=== PATIENT | male | born 1955 | race Caucasian/White ===

== ENCOUNTER 2020-04-20 09:36 | Inpatient (IN) | payer MEDICARE, OTHER, SELFPAY ==
[2020-04-20] VITALS (15 sets, daily range): BP systolic 105–136; BP diastolic 66–108; PULSE 81–103; RESP 18–30; TEMP 36.6–36.8; O2SAT 95–99; BMI 21.7; BMI 21.4
--- NOTE | 2020-04-20 09:56 | CT_ITS ---
STUDY: CT BRAIN WITHOUT CONTRAST REASON FOR EXAM: Male, 64 years old. LEFT ARM WEAKNESS. RADIATION DOSAGE (If Supplied By Facility): CTDIvol = ( 44.99 ) mGy, DLP = ( 796.11 ) mGycm TECHNIQUE: Transaxial CT imaging of the brain was performed without administration of intravenous contrast material. Individualized dose optimization techniques were used for this CT. COMPARISON: No relevant priors. FINDINGS: Normal soft tissue structures. Normal calvarium. Normal size ventricles and extra-axial spaces for the patient''s age. Normal white matter tracts of the cerebral hemispheres. Normal basal ganglia and thalami. Normal brainstem. Normal cerebellum. There is no intracranial hemorrhage. There are no findings of an acute ischemic infarction. Normal visualized paranasal sinuses. CT/Brain/Head without Contrast IMPRESSION: Normal unenhanced CT scan of the brain. Electronically Signed: Lonny Mohamud, at 10:55 EDT , Service support ,
--- NOTE | 2020-04-20 09:57 | EKG12_ITS ---
Test Reason : REPEAT EKG Blood Pressure : / mmHG Vent. Rate : 090 BPM Atrial Rate : 090 BPM P-R Int : 174 ms QRS Dur : 090 ms QT Int : 370 ms P-R-T Axes : 080 063 069 degrees QTc Int : 452 ms Normal sinus rhythm Low voltage QRS Borderline ECG Confirmed by EMERSON HERNANDEZ, DOMINIK ([id number]), editor book DEONDRE SANTOS ([id number]) on 04/21/2020 1:11:46 PM Referred By: BEST Confirmed By:DOMINIK NORMAN MD
--- NOTE | 2020-04-20 09:58 | RAD_ITS ---
STUDY: X-RAY CHEST REASON FOR EXAM: Male, 64 years old. SHORT OF BREATH, WEAKNESS TECHNIQUE: Single AP portable view of the chest. COMPARISON: None. FINDINGS: EKG electrodes are seen. Hyperinflation. Mild degree of increased markings in the right infrahilar region suggestive of a possible early infiltrate. There is no demonstrated pleural abnormality. Normal size heart. Normal mediastinum and nae. Normal visualized pulmonary arteries. There is atherosclerotic calcification of the aortic arch with tortuosity. There are diffuse degenerative changes of the visualized thoracic spine. Normal visualized ribs, clavicles, and shoulders. There is no demonstrated abnormality of the visualized soft tissue structures of the upper abdomen. RAD/Chest 1 View (Portable) IMPRESSION: Hyperinflation. Findings suggestive of a right infrahilar infiltrate. Electronically Signed: Lonny Mohamud, at 11:09 EDT , Service support ,
[2020-04-20] MEDS: Ipratropium/Albuterol Sulfate 3 ML AMPUL.NEB INHALATION ×3 (10:11→23:03)
[2020-04-20 10:20] LABS: Absolute Lymphocyte Count 1.34 X10^3/uL (0.83-4.51); Absolute Neutrophil Count 6.2 X10^3/uL (2.0-7.7); Basophil# 0.06 X10^3/uL; Basophil% 0.7 % (0-1); Eosinophil# 0.21 X10^3/uL; Eosinophils% 2.5 % (0-5); Hematocrit 46.9 % (40-54); Hemoglobin 15.9 g/dL (13.0-16.5); Lymphocyte # 1.34 X10^3/ul (4.0); Lymphocyte % 15.8 % (19-41); Mean Corp Hgb Conc 33.9 g/dL (32-36); Mean Corpuscular Hgb 32.7 pg (27.0-32.0); Mean Corpuscular Volume 96.5 fL (80-94); Mean Platelet Vol. 10.4 fl (6.2-12.0); Monocyte# 0.65 X10^3/uL; Monocyte% 7.7 % (0-10); NRBC Flagged by Analyzer 0 % (0-5); Neutrophil % 73.1 % (47-70); Platelet Count 264 K/mm3 (150-450); RBC Distribution Width CV 12.2 % (11.6-14.6); RBC Distribution Width SD 43.3 fl (35.1-43.9); Red Blood Count 4.86 M/mm3 (4.6-6.2); White Blood Count 8.5 K/mm3 (4.4-11.0)
--- NOTE | 2020-04-20 10:25 | ED.VIS.GEN ---
History of Present Illness Chief Complaint: General Illness Informant: Patient Onset: Today Context: Gradual Onset Narrative: Patient is a 64-year-old male with history of tobacco use and COPD presenting with multiple complaints. Patient states when he woke up this morning around 4:30 AM he noticed that his left arm felt weaker than normal. He states he does not feel he has much manager community strength is normal. Patient notes he had symptoms like this in the past and he had neck surgery for and he is never had it since. In addition he had some spasms of his left jaw. When he got out of bed around 6 AM to go to the restroom he suddenly felt very weak and short of breath. He also states that his arm weakness felt worse. Patient states that this feels different than his typical COPD exacerbations. He has tightness in his chest but denies any chest pain. He denies any cough or recent sputum production. Denies any fever or chills. He does note that over the past week he has had increased pain in his bilateral shoulders/back. States it feels like a tight muscle across the top of his back. In addition he notes he is had some mild left lower quadrant abdominal pain that he saw his primary care doctor for last week. At that time he thought he might have a small hernia. He states is worse when he tries to sit up positions. Patient denies associated nausea, vomiting or change in bowel habits. He denies any urinary symptoms. He denies any other complaints at this time. Past Medical History - Allergies and Home Meds Allergies/Adverse Reactions: Allergies No Known Allergies Allergy (Verified 04/20/20 09:44) Past Medical History: - - COPD, chronic back pain Surgical History: - - Cervical spine surgery Smoking Status: Current some day smoker - Family History Maternal Family History: Reports: No pertinent history Paternal Family History: Reports: No pertinent history Review of Systems General: Reports: Malaise. Denies: Chills, Fever, Sweats Eyes: Denies: Visual changes - bilaterally, Diplopia ENT: Denies: Rhinorrhea, Sore throat Cardiovascular: Reports: Chest pain - Chest tightness. Denies: Palpitations Respiratory: Reports: Dyspnea. Denies: Cough, Sputum, Dyspnea on exertion Gastrointestinal: Reports: Abdominal pain - Left lower abdomen. Denies: Nausea, Vomiting, Diarrhea, Melena, Hematochezia Genitourinary: Denies: Dysuria, Hematuria, Frequency Musculoskeletal: Reports: Myalgias - Upper back. Denies: Back pain, Extremity Pain Skin: Denies: Rash, Wounds Neurological: Reports: Weakness - Left arm and hand. Denies: Headache, Parasthesia, Numbness Physical Exam Vital Signs/Narrative: Vital Signs Temp Pulse Resp BP Pulse Ox 04/20/20 10:08 98.1 F 87 22 H 121/88 H 96 04/20/20 09:37 98.1 F 97 20 H 136/108 H 97 Inital Vital Signs reviewed: Yes General: Well nourished, Well developed, No Acute Distress Head: Normocephalic, Atraumatic Eyes: Perrl, EOMI ENT: Moist mucous membranes, No rhinorrhea Neck: Supple, Nontender Cardiovascular: Regular rate, Regular rhythm, No murmurs Respiratory: No distress, Chest nontender, Diminished, Decreased Air Movement. Negative for: Wheezing Abdomen: Soft, Nontender, Nondistended, Normal bowel sounds, No masses. Negative for: Guarding, Rebound tenderness Back: Normal Inspection, - - Bilateral trapezius tenderness to palpation. Negative for: CVA tenderness, Spinal tenderness Extremities: Nontender, No edema, - - Decreased manager community strength, decreased strength with the intrinsic muscles of the hand on the left. Negative for: Tenderness Skin: Normal color, No rash Neurological: Alert, Oriented x3, Cranial nerves II-XII grossly intact, Normal Strength, Normal Sensation, Weakness, - - NIH equals 0. Negative for: Left side facial droop, Right side facial droop Psychological: Normal affect, Normal Mood Diagnostic/Tx/Re-eval Chest X-Ray - ED: 1 View, Read by ED Physician, Read by Radiologist, No Acute Disease Clinical Impression(s) from Imaging Studies Brain CT 04/20/20 09:56 IMPRESSION: Normal unenhanced CT scan of the brain. Electronically Signed: Lonny Mohamud, at 10:55 EDT , Service support , Chest X-Ray 04/20/20 09:58 IMPRESSION: Hyperinflation. Findings suggestive of a right infrahilar infiltrate. Electronically Signed: Lonny Moahmud at 11:09 EDT , Service support , Laboratory Data 04/20/20 04/20/20 04/20/20 10:03 10:03 10:03 WBC 8.5 RBC 4.86 Hgb 15.9 Hct 46.9 MCV 96.5 H MCH 32.7 H MCHC 33.9 RDW Std Deviation 43.3 RDW Coeff of Mazin 12.2 Plt Count 264 MPV 10.4 Immature Gran % (Auto) 0.200 Neut % (Auto) 73.1 H Lymph % (Auto) 15.8 L Bond % (Auto) 7.7 Eos % (Auto) 2.5 Baso % (Auto) 0.7 Absolute Neuts (auto) 6.2 Absolute Lymphs (auto) 1.34 Nucleated RBC % 0 PT 13.0 INR 1.0 APTT 24.6 D-Dimer Quant (PE/DVT) 0.45 Sodium Cancelled Potassium Cancelled Chloride Cancelled Carbon Dioxide Cancelled Anion Gap Cancelled BUN Cancelled Creatinine Cancelled Estim Creat Clear Calc Cancelled Est GFR (MDRD) Af Amer Cancelled Est GFR (MDRD) Non-Af Cancelled BUN/Creatinine Ratio Cancelled Glucose Cancelled Calcium Cancelled Total Bilirubin Cancelled AST Cancelled ALT Cancelled Alkaline Phosphatase Cancelled Troponin I Cancelled B-Natriuretic Peptide Total Protein Cancelled Albumin Cancelled Globulin Cancelled Albumin/Globulin Ratio Cancelled Triglycerides Cholesterol LDL Cholesterol VLDL Cholesterol HDL Cholesterol Lipase Cancelled TSH Urine Color Urine Clarity Urine pH Ur Specific [place] Urine Protein Urine Glucose (UA) Urine Ketones Urine Occult Blood Urine Nitrite Urine Bilirubin Urine Urobilinogen Ur Leukocyte Esterase Urine RBC Urine WBC Ur Squamous Epith Cells Urine Bacteria Urine Mucus 04/20/20 04/20/20 04/20/20 10:03 10:20 11:00 WBC RBC Hgb Hct MCV MCH MCHC RDW Std Deviation RDW Coeff of Mazin Plt Count MPV Immature Gran % (Auto) Neut % (Auto) Lymph % (Auto) Bond % (Auto) Eos % (Auto) Baso % (Auto) Absolute Neuts (auto) Absolute Lymphs (auto) Nucleated RBC % PT INR APTT D-Dimer Quant (PE/DVT) Sodium Cancelled Potassium Cancelled Chloride Cancelled Carbon Dioxide Cancelled Anion Gap Cancelled BUN Cancelled Creatinine Cancelled Estim Creat Clear Calc Cancelled Est GFR (MDRD) Af Amer Cancelled Est GFR (MDRD) Non-Af Cancelled BUN/Creatinine Ratio Cancelled Glucose Cancelled Calcium Cancelled Total Bilirubin Cancelled AST Cancelled ALT Cancelled Alkaline Phosphatase Cancelled Troponin I Cancelled B-Natriuretic Peptide 13.5 Total Protein Cancelled Albumin Cancelled Globulin Cancelled Albumin/Globulin Ratio Cancelled Triglycerides Cholesterol LDL Cholesterol VLDL Cholesterol HDL Cholesterol Lipase Cancelled TSH Urine Color Yellow Urine Clarity Sl. Cloudy Urine pH 7.0 Ur Specific [place] 1.010 Urine Protein Negative Urine Glucose (UA) Normal Urine Ketones 15 H Urine Occult Blood Negative Urine Nitrite Negative Urine Bilirubin Negative Urine Urobilinogen Normal Ur Leukocyte Esterase Negative Urine RBC 0 SEEN Urine WBC 0 SEEN Ur Squamous Epith Cells 0-5 SEEN Urine Bacteria 0 SEEN Urine Mucus 0 SEEN 04/20/20 04/20/20 11:49 11:49 WBC RBC Hgb Hct MCV MCH MCHC RDW Std Deviation RDW Coeff of Mazin Plt Count MPV Immature Gran % (Auto) Neut % (Auto) Lymph % (Auto) Bond % (Auto) Eos % (Auto) Baso % (Auto) Absolute Neuts (auto) Absolute Lymphs (auto) Nucleated RBC % PT INR APTT D-Dimer Quant (PE/DVT) Sodium 133 L Potassium 4.2 Chloride 104 Carbon Dioxide 21.0 Anion Gap 8 BUN 5 L Creatinine 0.71 Estim Creat Clear Calc 100.65 Est GFR (MDRD) Af Amer 143 Est GFR (MDRD) Non-Af 119 BUN/Creatinine Ratio 7.1 L Glucose 93 Calcium 8.7 Total Bilirubin 0.50 AST 22 ALT 24 Alkaline Phosphatase 67 Troponin I 0.788 H* B-Natriuretic Peptide Total Protein 6.6 Albumin 3.4 Globulin 3.2 Albumin/Globulin Ratio 1.1 Triglycerides 61 Cholesterol 141 LDL Cholesterol 87 VLDL Cholesterol 12 HDL Cholesterol 42 Lipase 63 L TSH 0.64 Urine Color Urine Clarity Urine pH Ur Specific [place] Urine Protein Urine Glucose (UA) Urine Ketones Urine Occult Blood Urine Nitrite Urine Bilirubin Urine Urobilinogen Ur Leukocyte Esterase Urine RBC Urine WBC Ur Squamous Epith Cells Urine Bacteria Urine Mucus - Rhythm Strip Rhythm Strip: Sinus Rhythm Rate: 90 Ectopy: None - EKG Initial EKG Interpretation: Sinus Rhythm, - - This rhythm at a rate of 90 Normal intervals Normal axis Normal ST segments No prior EKG available for comparison Prior: No Prior Follow-up EKG Interpretation: Sinus Rhythm, - - Normal sinus rhythm at a rate of [address] segments No dynamic changes compared to prior EKG 2 hours before - Medical Decision Making Evaluated for a vague sensation of left arm discomfort, chest tightness, shortness of breath and weakness in his left arm. He does have a history of COPD. His symptoms started today when he woke up at 430 this morning. On physical exam patient has some mild manager community strength weakness but he has an NIH of 0. His EKG does not show any acute process. Chest x-ray does not show any widening of the mediastinum does show some questionable right lower lobe infiltrate. Clinically patient is not having any cough and shortness of breath that started today. I will lower suspicion for pneumonia especially as he has no leukocytosis. Discussed with hospitalist and we will defer antibiotics at this time. Patient's blood work is hemolyzed multiple times so there is a delay in obtaining it. Ultimately he is found to have an elevated troponin of 0.788. His proBNP is normal and so is his d-dimer. I do not suspect a PE as the cause of his chest tightness and shortness of breath. CT of the brain does not show any acute process. While it is possible that patient could have a neurologic process, he would not be a TPA candidate as he is outside the TPA window 1 and 2 he is not having a disabling deficit. I am concerned patient might be having an end STEMI given his chest tightness and vague left arm discomfort. Case is discussed with cardiology on-call, Dr. Vidal, who recommends 81 mg aspirin, 300 mg of Plavix and weight-based Lovenox subcu. This is done in the emergency room. Patient made hemodynamically stable and will be admitted to the PCU for further evaluation. ED Disposition - Plan for ED Patient: Disposition: Acute Care Hospital [facility] Diagnosis: Acute non-STEMI, COPD exacerbation, Left arm weakness, Tobacco abuse
[2020-04-20 10:27] LABS: Partial Thromboplast Time 24.6 Seconds (24.1-36.2)
[2020-04-20 10:29] LABS: D-Dimer Quantitative (DVT/PE) 0.45 FEU/ug/m (0.27-0.49)
[2020-04-20 10:44] LABS: BNP,B-Type NATRIURETIC PEPTIDE 13.5 pg/mL (0-100)
[2020-04-20 11:33] LABS: Bacteria 0 SEEN /hpf (None Seen); Mucous, Urine 0 SEEN /hpf (<or=2+); Red Blood Cells-Urine 0 SEEN /hpf (0-5); White Blood Cells 0 SEEN /hpf (0-5)
[2020-04-20 11:36] LABS: Color, Urine Yellow (Yellow); Glucose, Dipstick Normal (Normal); Ketone-Dipstick 15 mg/dl (Negative); Leukocyte Esterase-Dipstick Negative /ul (Negative); Nitrite-Dipstick Negative (Negative); Occult Blood-Urine Negative /ul (Negative); Protein-Dipstick Negative (Negative); Urine Bilirubin Dipstick Negative (Negative); Urine Clarity Sl. Cloudy (Clear); Urine Urobilinogen Normal (Normal)
[2020-04-20 11:48] LABS: Squamous Epithelial Cells - UA 0-5 SEEN /hpf (0-5)
[2020-04-20 12:26] LABS: ALB/GLOB Ratio 1.1 RATIO (0.9-2.4); AST(SGOT) 22 U/L (15-37); Alanine Aminotransfer ALT/SGPT 24 U/L (16-61); Albumin, Serum 3.4 g/dL (3.2-5.0); Alkaline Phosphatase 67 U/L (45-117); Anion Gap 8 (5-15); BUN 5 mg/dL (7-18); BUN/Creat Ratio 7.1 RATIO (10-20); Calcium,Total 8.7 mg/dL (8.5-10.1); Chloride 104 mmol/L (98-107); Creatinine, Serum 0.71 mg/dL (0.70-1.30); EST Glomerular Filtration Rate 119 mL/min (>60); Est Glom Filt Rate - Afr Amer 143 mL/min (>60); Estimated Creatinine Clearance 100.65 ml/min; Globulin 3.2 g/dL (2.2-4.2); Glucose 93 mg/dL (74-106); Lipase 63 U/L (73-393); Potassium 4.2 mmol/L (3.5-5.1); Protein, Total 6.6 g/dL (6.4-8.2); Sodium Level 133 mmol/L (136-145)
[2020-04-20] MEDS: Enoxaparin 80 MG/0.8 ML Syringe 70 MG SC ×2 (13:02→21:46)
[2020-04-20] MEDS: Clopidogrel Bisulfate 300 MG Tablet PO (13:02)
[2020-04-20] MEDS: Aspirin 81 MG TAB.CHEW PO (13:02)
--- NOTE | 2020-04-20 13:15 | ECHOD_ITS ---
Reason For Study: CP, Weakness Procedure This was a 2D Doppler, Color Flow transthoracic echocardiogram. Very technically difficult, attempted views from multiple positions.Limited views obtained, best images were from subcostal window. Exam performed portable in patient room. Left Ventricle Normal size and thickness. The estimated ejection fraction is 55 %. Stage 1 diastolic dysfunction. Posterior-Basal: Mildly hypokinetic. Right Ventricle Normal size and thickness. Normal systolic function. Atria Normal left atrium. Normal right atrium. Normal atrial septum. Bubble contrast study negative for right to left interatrial shunt. Mitral Valve The mitral valve is structurally normal. No prolapse or stenosis seen. Tricuspid Valve Normal tricuspid valve. Trivial tricuspid valve insufficiency. Right ventricular systolic pressure estimated to be 26 mmHg. Aortic Valve Trisinus/trileaflet aortic valve. Normal aortic valve. Pulmonic Valve Normal pulmonic valve. Great Vessels Normal aortic root. Normal arch. Normal inferior vena cava. Inferior vena cava collapse with sniff. Pericardium/Pleural No pericardial effusion. Medication Performed a rapid injection of agitated mix of 9 cc saline and 1cc air to assess for atrial septal defect. MMode/2D Measurements & Calculations LVIDd: 4.5 cm IVSd: 1.1 cm LA dimension: 2.4 cm LVIDs: 3.1 cm LVPWd: 0.95 cm FS: 31.8 % Doppler Measurements & Calculations PA V2 max: 103.0 cm/sec TR max alia: 227.1 cm/sec TR max P.6 mmHg Interpretation Summary The estimated ejection fraction is 55 %. Stage 1 diastolic dysfunction. Posterior-Basal: Mildly hypokinetic Bubble contrast study negative for right to left interatrial shunt. Trivial tricuspid valve insufficiency. Right ventricular systolic pressure estimated to be 26 mmHg. The study was technically limited. There is no comparison study available. Ordering Physician: Brett Vidal Referring Physician: Christoph Stout Performed By: Selwyn Shine RCS
--- NOTE | 2020-04-20 13:16 | PCM.CONS.C ---
Problem List (1) Chest pain Status: Acute (2) Dyspnea Status: Acute (3) Tobacco abuse Status: Acute Reason for Consult Date of Consultation: 04/20/20 Reason for Consultation: Chest pain, dyspnea, shortness of breath, fatigue tobacco abuse History of Present Illness: The patient is a 64 year old M current smoker of approximately 80 pack years, diagnosed with COPD, no previous known coronary disease, catheterization or stress test. He was told a number of years ago that he had an abnormal echo with a leaky valve although he does not remember the specifics or where it was performed. The patient has been progressively developing worsening fatigue over the last several months. Yesterday he developed an episode of substernal chest pressure with associated dyspnea on exertion which lasted several minutes but then resolved. While he was assisting his mother this morning at around 4:30 AM, the patient developed severe midsternal chest pressure radiating down his left arm, with associated left arm numbness and severe dyspnea. This lasted for the better part of an hour, and was relieved with using his mother's oxygen and rest. His symptoms abated, but his dyspnea continued and he sought medical attention at [facility] ER this morning. His initial EKG showed normal sinus rhythm, normal axis, normal intervals, no acute changes. His initial troponin was 0. 788. His chest x-ray showed no acute pulmonary edema but flattened diaphragms consistent with COPD. Apparently the patient had some mental status changes and underwent a nonenhanced CT scan which was negative for acute stroke. He is currently resting comfortably, no acute distress. He denies any fevers, chills, has a chronic cough with productive sputum which has been unchanged, no COVID-19 exposure, no lower extremity edema, no presyncope or syncope or palpitations. [] Past Medical History Allergies/Adverse Reactions: Allergies No Known Allergies Allergy (Verified 04/20/20 09:44) Home Medications: Ambulatory Orders Medication Instructions Recorded Albuterol Sulfate [Albuterol 1 puff INHALATION Q4H PRN PRN 04/20/20 Sulfate HFA] Ipratropium [Atrovent Inhaler] 2 puff INHALATION Q6H PRN PRN 04/20/20 Umeclidinium Brm/Vilanterol Tr 1 puff INHALATION DAILY 04/20/20 [Anoro Ellipta 62.5-25 Mcg INH] cycloBENZAPRine HCl [Flexeril] 10 mg PO PRN PRN 04/20/20 Surgical History: - - Cervical spine surgery Smoking Status: Current some day smoker Tobacco Use: Cigarettes Review of Systems - Review of Systems General: Denies: Fever, Night Sweats, Fatigue Cardiovascular: Reports: Chest Discomfort, Chest Discomfort at Rest, Chest Tightness, Chest Heaviness, Shortness of Breath. Denies: Orthopnea, PND, Peripheral Edema, Palpitations, Lightheadedness, Dizziness, Near Syncope, Syncope Respiratory: Denies: Cough, Sputum Production, Hemoptysis Gastrointestinal: Denies: Hematemesis, Hematochezia, Melena Genitourinary: Denies: Dysuria, Hematuria Skin: Denies: Rash Subjectve: Patient resting comfortably, no acute distress. Objective: Vital Signs Temp Pulse Resp BP Pulse Ox 98 F 89 24 H 108/75 97 04/20/20 11:30 04/20/20 12:33 04/20/20 12:33 04/20/20 12:33 04/20/20 12:33 Oxygen Delivery Method Nasal Cannula Weight: 151 lb 3.794 oz Body Mass Index (BMI) 21.7 Intake and Output for Last 24 Hours 04/18/20 04/19/20 04/20/20 23:59 23:59 23:59 Intake Total 500 / 500 Balance 500 / 500 General: Awake, Alert, Oriented x 3 HEENT: PERRL, EOMI, Sclera Non Icteric Neck: Supple, Good ROM, No Lymph Node Enlargement Lungs: Clear to auscultation Cardiovascular: Regular Rhythm, Normal S2, No Rubs, No Gallops Murmur Murmur: Grade 2/6, Holosystolic Vascular: No Carotid Bruits, Normal Femoral Pulses, Normal Radial Pulses, Normal Dorsalis Pedal Pulse, Normal Posterior Tibial Pulses Abdomen: Bowel Sounds Present, Soft, Non Tender, No HSM, No Organomegaly Extremities: No Cyanosis, No Clubbing, No edema Neurological: No Focal Motor or Sensory Deficit 04/20/20 10:03: WBC 8.5, RBC 4.86, Hgb 15.9, Hct 46.9, MCV 96.5 H, MCH 32.7 H, MCHC 33.9, Plt Count 264, MPV 10.4, Immature Gran % (Auto) 0.200, Neut % (Auto) 73.1 H, Lymph % (Auto) 15.8 L, [place] % (Auto) 7.7, Eos % (Auto) 2.5, Baso % (Auto) 0.7, Absolute Neuts (auto) 6.2, Nucleated RBC % 0 04/20/20 10:03: PT 13.0, INR 1.0, APTT 24.6, D-Dimer Quant (PE/DVT) 0.45 04/20/20 10:03: Sodium Cancelled, Potassium Cancelled, Chloride Cancelled, Carbon Dioxide Cancelled, Anion Gap Cancelled, BUN Cancelled, Creatinine Cancelled, Est GFR (MDRD) Af Amer Cancelled, Est GFR (MDRD) Non-Af Cancelled, BUN/Creatinine Ratio Cancelled, Glucose Cancelled, Calcium Cancelled, Total Bilirubin Cancelled, Troponin I Cancelled 04/20/20 10:03: B-Natriuretic Peptide 13.5 04/20/20 10:20: Urine Color Yellow, Urine Clarity Sl. Cloudy, Urine pH 7.0, Ur Specific [place] 1.010, Urine Protein Negative, Urine Glucose (UA) Normal, Urine Ketones 15 H, Urine Occult Blood Negative, Urine Nitrite Negative, Urine Bilirubin Negative, Urine Urobilinogen Normal, Ur Leukocyte Esterase Negative, Urine RBC 0 SEEN, Urine WBC 0 SEEN 04/20/20 11:00: Sodium Cancelled, Potassium Cancelled, Chloride Cancelled, Carbon Dioxide Cancelled, Anion Gap Cancelled, BUN Cancelled, Creatinine Cancelled, Est GFR (MDRD) Af Amer Cancelled, Est GFR (MDRD) Non-Af Cancelled, BUN/Creatinine Ratio Cancelled, Glucose Cancelled, Calcium Cancelled, Total Bilirubin Cancelled, Troponin I Cancelled 04/20/20 11:49: Sodium 133 L, Potassium 4.2, Chloride 104, Carbon Dioxide 21.0, Anion Gap 8, BUN 5 L, Creatinine 0.71, Est GFR (MDRD) Af Amer 143, Est GFR (MDRD) Non-Af 119, BUN/Creatinine Ratio 7.1 L, Glucose 93, Calcium 8.7, Total Bilirubin 0.50, Troponin I 0.788 H* Rhythm: EKG: As above ECHO: pEnding Stress Test: Cardiac Cath: PCI: CT Surgery: Holter monitor: EPS: PPM: CXR: Chest CT Scan: Assessment/Plan 1. Unstable angina: The patient presents with new onset angina over the last 2 days, culminating in severe substernal chest pressure today with associated severe shortness of breath and dyspnea superimposed on a abnormal initial troponin of 0.78. The patient has multiple risk factors for coronary Klooster disease including his age, heavy smoking and unstable symptoms. I recommended the patient be loaded with baby aspirin's, 300 mg of Plavix x1 now followed by 75 mg a day, and subcu Lovenox 1 mg/kg subcu twice daily. Given the patient signs and symptoms, I am concerned he may have undiagnosed coronary occlusive disease, and would recommend he undergo a 2D echo with Doppler today followed by left heart catheterization tomorrow morning. 2. Tobacco abuse: I strongly encouraged the patient to discontinue all tobacco products and he is agreed to do so. 3. Hyperlipidemia: Recommend obtaining a fasting lipid profile and treating his LDL less than 70. 4. COPD: The patient has obvious COPD with pursed lip breathing, and heavy tobacco use, and will require a pulmonary consultation but can be done as an outpatient. 5. Thank you very much for the opportunity to participate in the cardiac care of your patient. Consultation took place between 1245 and 1:23 PM. Inpatient E&M: 58797 Init Hosp L2
--- NOTE | 2020-04-20 13:54 | HP.PCM_ITS ---
Problem List (1) Left arm weakness Status: Acute (2) COPD exacerbation Status: Acute (3) Acute non-STEMI Status: Acute (4) COPD (chronic obstructive pulmonary disease) Status: Chronic (5) Tobacco abuse Status: Chronic History of Present Illness Date of Admission: 04/20/20 Chief Complaint: Shortness of breath, left upper extremity weakness. The patient is a 64 year old M with past medical history as mentioned above presented to the emergency room because of shortness of breath and left upper extremity weakness. This morning, he woke up around 4 AM, went to the bathroom, felt very short of breath compared to usual, he was short of breath at rest, aggravated by any type of activity, associated with chronic cough which is not changing as well as chest tightness, not relieved with rest. He went back to his bed and shortly after, he started having weakness on the left upper extr emity, associated with tingling and numbness of the left hand and he noticed what he described as fluttering of the left corner of his mouth. This abnormal sensation on the left mouth corner lasted only for couple of minutes. Weakness of the left arm continued. Patient mentioned that he does have chronic weakness of the left lower extremity as well. The weakness on the left upper extremity is new. Patient complained of chest tightness along with the shortness of breath but he denied any chest pain. He denied palpitation, dizziness or lightheadedness. In the emergency department, patient was very dyspneic and tachypneic, afebrile, blood pressure was stable, pulse ox was 96% on room air although he was obviously tachypneic and dyspneic. Routine blood work was remarkable for sodium of 133, otherwise normal. LFT and lipase were normal. EKG revealed normal sinus rhythm, normal SC interval, normal QRS, no acute segment changes. Troponin was elevated at 0.788. CT scan brain showed no acute findings. Chest x-ray revealed haziness on the right base which is likely atelectasis, I doubt infiltrate or pneumonia. Patient is being admitted for acute ST relation [place], COPD exacerbation and left upper extremity weakness concerning for TIA versus acute stroke. Past Medical History Past Medical History (Chronic Problems): Chronic Problems COPD (chronic obstructive pulmonary disease) (Chronic) Tobacco abuse (Chronic) Allergies No Known Allergies Allergy (Verified 04/20/20 09:44) Home Medications: Ambulatory Orders Medication Instructions Recorded Albuterol Sulfate [Albuterol 1 puff INHALATION Q4H PRN PRN 04/20/20 Sulfate HFA] Ipratropium [Atrovent Inhaler] 2 puff INHALATION Q6H PRN PRN 04/20/20 Umeclidinium Brm/Vilanterol Tr 1 puff INHALATION DAILY 04/20/20 [Anoro Ellipta 62.5-25 Mcg INH] cycloBENZAPRine HCl [Flexeril] 10 mg PO PRN PRN 04/20/20 Surgical History: - - Cervical spine surgery, back surgery. Psychiatric History: No pertinent psych hx Lives: With Family Smoking Status: Current some day smoker Tobacco Use: Cigarettes Alcohol: None Drugs: None - *Family History Maternal History Items: No pertinent history Paternal History Items: No pertinent history Review of Systems Constitutional: Denies: Anorexia, Chills, Fever, Weakness Eyes: Denies: Blurred vision, Double vision, Drainage, Redness HEENT: Denies: Difficulty Hearing, Ear Pain, Eye Pain, Nasal Congestion, Sore Throat Cardiovascular: Reports: Chest Tightness, Heaviness. Denies: Chest Pain, Light Headedness, Palpitations, Syncope Respiratory: Reports: Cough, Shortness of breath at rest, Shortness of breath upon exertion, Wheezing. Denies: Sputum production Gastrointestinal: Denies: Abdominal Pain, Constipation, Diarrhea, Nausea, Vomiting Genitourinary: Denies: Dysuria, Frequency, Hematuria Musculoskeletal: Denies: Arm Pain, Back Pain, Foot Pain Skin: Denies: Dryness, Rash Neurological: Reports: Focal weakness, Numbness. Denies: Balance problems, Double vision, Change in Speech, Slurred speech, Confusion, Headaches, Incoordination Psychiatric: Denies: Anxiety, Depression Endocrine: Denies: Change in Body Habitus, Polydipsia, Polyuria VTE Information - Inpt Only VTE Present on Admission: No VTE Mechan Device Prophylaxis: SCD's VTE Pharm Prophylaxis ordered?: No Patient Problems: Active and Suspected Problems Left arm weakness (Acute) COPD exacerbation (Acute) Acute non-STEMI (Acute) - Physical Exam Vitals/I&O's: Vital Signs Temp Pulse Resp BP Pulse Ox 98.2 F 84 26 H 106/88 H 99 04/20/20 13:31 04/20/20 13:31 04/20/20 13:31 04/20/20 13:31 04/20/20 13:31 Oxygen Delivery Method Nasal Cannula Weight: 151 lb 3.794 oz Body Mass Index (BMI) 21.7 Intake and Output for Last 24 Hours 04/18/20 04/19/20 04/20/20 23:59 23:59 23:59 Intake Total 500 / 500 Balance 500 / 500 General: Alert, Oriented x3, Cooperative, - - He is on moderate to severe respiratory stress. HEENT: Atraumatic, PERRLA, EOMI, Normocephalic Oral: Moist Mucosa, No Gingival or Mucosal Lesions/ Ulcerations Neck: Supple, No JVD, Negative Carotid Bruits, Trachea Midline, Thyroid Normal Size and Texture Lungs: No rales, Diminished, Rhonchi, Short of Breath, Tachypneic, - - Decreased breath sounds bilateral, bilateral expiratory wheezes. Cardiovascular: Regular rate, Regular Rhythm, Normal S1, Normal S2, PMI Normal Abdomen: Bowel Sounds Present, Soft, Non Tender, Non-Distended, No Hepato- splenomegaly Extremities: No clubbing, No cyanosis, No edema Skin: No rashes, No breakdown Lymphatic: No Cervical, Supraclavicular, or Inguinal Adenopathy Neurological: Cranial nerves II-XII grossly intact, - - Power on the left upper extremity is 4+ by 5, other limbs power is normal. Psych/Mental Status: Normal Affect, Appropriate, Alert and oriented to time, place, person, mood and affect Laboratory Results 04/20/20 10:03: WBC 8.5, RBC 4.86, Hgb 15.9, Hct 46.9, MCV 96.5 H, MCH 32.7 H, MCHC 33.9, RDW Std Deviation 43.3, RDW Coeff of Mazin 12.2, Plt Count 264, MPV 10.4, Immature Gran % (Auto) 0.200, Neut % (Auto) 73.1 H, Lymph % (Auto) 15.8 L, [place] % (Auto) 7.7, Eos % (Auto) 2.5, Baso % (Auto) 0.7, Absolute Neuts (auto) 6.2, Absolute Lymphs (auto) 1.34, Nucleated RBC % 0 04/20/20 10:03: PT 13.0, INR 1.0, APTT 24.6, D-Dimer Quant (PE/DVT) 0.45 04/20/20 10:03: Sodium Cancelled, Potassium Cancelled, Chloride Cancelled, Carbon Dioxide Cancelled, Anion Gap Cancelled, BUN Cancelled, Creatinine Cancelled, Estim Creat Clear Calc Cancelled, Est GFR (MDRD) Af Amer Cancelled, Est GFR (MDRD) Non-Af Cancelled, BUN/Creatinine Ratio Cancelled, Glucose Cancelled, Calcium Cancelled, Total Bilirubin Cancelled, AST Cancelled, ALT Cancelled, Alkaline Phosphatase Cancelled, Troponin I Cancelled, Total Protein Cancelled, Albumin Cancelled, Globulin Cancelled, Albumin/Globulin Ratio Cancelled, Lipase Cancelled 04/20/20 10:03: B-Natriuretic Peptide 13.5 04/20/20 10:20: Urine Color Yellow, Urine Clarity Sl. Cloudy, Urine pH 7.0, Ur Specific [place] 1.010, Urine Protein Negative, Urine Glucose (UA) Normal, Urine Ketones 15 H, Urine Occult Blood Negative, Urine Nitrite Negative, Urine Bilirubin Negative, Urine Urobilinogen Normal, Ur Leukocyte Esterase Negative, Urine RBC 0 SEEN, Urine WBC 0 SEEN, Ur Squamous Epith Cells 0-5 SEEN, Urine Bacteria 0 SEEN, Urine Mucus 0 SEEN 04/20/20 11:00: Sodium Cancelled, Potassium Cancelled, Chloride Cancelled, Carbon Dioxide Cancelled, Anion Gap Cancelled, BUN Cancelled, Creatinine Cancelled, Estim Creat Clear Calc Cancelled, Est GFR (MDRD) Af Amer Cancelled, Est GFR (MDRD) Non-Af Cancelled, BUN/Creatinine Ratio Cancelled, Glucose Cancelled, Calcium Cancelled, Total Bilirubin Cancelled, AST Cancelled, ALT Cancelled, Alkaline Phosphatase Cancelled, Troponin I Cancelled, Total Protein Cancelled, Albumin Cancelled, Globulin Cancelled, Albumin/Globulin Ratio Cancelled, Lipase Cancelled 04/20/20 11:49: Sodium 133 L, Potassium 4.2, Chloride 104, Carbon Dioxide 21.0, Anion Gap 8, BUN 5 L, Creatinine 0.71, Estim Creat Clear Calc 100.65, Est GFR (MDRD) Af Amer 143, Est GFR (MDRD) Non-Af 119, BUN/Creatinine Ratio 7.1 L, Glucose 93, Calcium 8.7, Total Bilirubin 0.50, AST 22, ALT 24, Alkaline Phosphatase 67, Troponin I 0.788 H*, Total Protein 6.6, Albumin 3.4, Globulin 3.2, Albumin/Globulin Ratio 1.1, Lipase 63 L Clinical Impression(s) from Imaging Studies Brain CT 04/20/20 09:56 IMPRESSION: Normal unenhanced CT scan of the brain. Electronically Signed: Lonny Mohamud, at 10:55 EDT , Service support , Chest X-Ray 04/20/20 09:58 IMPRESSION: Hyperinflation. Findings suggestive of a right infrahilar infiltrate. Electronically Signed: Lonny Mohamud, at 11:09 EDT , Service support , Current Medications Sodium Chloride () 1,000 mls @ 0 mls/hr IV .Q0M LOWELL Assessment/Plan All Active Problems Left arm weakness (Acute) COPD exacerbation (Acute) Acute non-STEMI (Acute) This is a 64 years old male patient presented to the emergency room because of worsening shortness of breath and left upper extremity weakness and he was found to have acute ST elevation WI, acute COPD exacerbation and left upper extremity weakness concerning for acute stroke versus TIA. #1 acute non-ST elevation WI: EKG reveals no acute chronic changes. Troponin is elevated. Currently, patient complained of chest tightness, no chest pain. His vital signs are stable apart from tachypnea and dyspnea. Plan: Admit to PCU, cardiac monitoring, serial cardiac enzymes, 2D echocardiogram, start aspirin and statins, fasting blood profile, TSH, cardiology consult, gentle IV fluids for hydration, Tylenol PRN, repeat CBC and BMP tomorrow morning, PT OT evaluation and treatment. #2 acute COPD exacerbation: Chest x-ray reviewed, read by radiology as right lower perfect rate. I think x-ray revealed right lower lobe atelectasis, no infiltrate. Patient is afebrile, no leukocytosis. He complained of chronic cough, no sputum production. At this time, I doubt pneumonia. Plan: DuoNeb every 4 hours, albuterol PRN, IV Levaquin for COPD exacerbation, Mucinex twice daily, chest physiotherapy, incentive spirometer. #3 left upper extremity weakness/abnormal sensation on the left mouth corner: Patient does have a history of chronic weakness of the left lower extremity. This weakness of the upper extremity is new. CT scan brain showed no acute findings. Plan: NIH stroke scale every 4 hours, start aspirin, statins, MRI brain. If MRI brain came back positive for stroke, we will complete standard stroke work-up. #4 COPD: With acute exacerbation as above. Plan as above. #5 tobacco abuse: NicoDerm patch if desired. #6 DVT prophylaxis: SCD for now. This note was generated with [employer] dictation software. It may contain incorrect words, spelling, and punctuation that were not noted in checking the note before signing. Inpatient E&M: 79339 Init Hosp L3
--- NOTE | 2020-04-20 13:56 | MRI_ITS ---
STUDY: MRI BRAIN WITHOUT CONTRAST REASON FOR EXAM: Male, 64 years old. left sided weakness, SOB TECHNIQUE: Standardized multiplanar fat and water weighted pulse sequences were obtained. COMPARISON: Head CT dated April 20, 2020 FINDINGS: There is mild cerebral atrophy with widening of the extra-axial spaces and ventricular dilatation. There are a limited number of small white matter hyperintensities, distributed throughout the deep white matter tracts of the cerebral hemispheres, consistent with mild chronic white matter ischemic changes. There is no evidence for recent intracranial ischemia or other cause of cytotoxic edema on diffusion weighted imaging (DWI). Normal T2* images of the brain without demonstrated susceptibility artifact. There is no demonstrated hemosiderin stain. Normal bilateral basal ganglia. Normal thalami. There is no extra-axial fluid accumulation. Normal flow voids within the major intracranial circulation suggesting patency by spin echo criteria. Normal sella turcica, pituitary gland, infundibular stalk, optic chiasm and hypothalamus. Normal tectal plate and pineal gland. Normal midbrain, adonis and medulla. Normal cerebellum. Normal basal cisterns. Normal bilateral temporal bones. Normal bilateral internal auditory canals. No demonstrated orbital abnormality, within the constraints of a routine brain study. Normal visualized paranasal sinuses. Normal calvarium and skull base. Normal visualized soft tissue structures. Normal visualized upper cervical spine. MRI/Brain without Contrast IMPRESSION: Mild chronic ischemic changes of the white matter. Electronically Signed: Steven Vazquez MD at 17:32 EDT , Service support ,
[2020-04-20 14:38] LABS: Cholesterol 141 mg/dL (200); High Density Lipoprotein 42 mg/dL; Thyroid Stim Hormone (TSH) 0.64 uIU/mL (0.358-3.74); Triglycerides 61 mg/dL; Very Low Density Lipoprotein 12 mg/dL (5-40)
[2020-04-20] MEDS: LORazepam 2 MG/ML Syringe 1 MG IV (14:51)
[2020-04-20] MEDS: 0.9% Normal Saline 1,000 ML 75 ML IV (16:24)
[2020-04-20] MEDS: levoFLOXacin IV 500 MG/100 ML BAG 100 MG IV (16:30)
[2020-04-20] MEDS: guaiFENesin 1,200 MG Tablet 1200 MG PO (21:45)
[2020-04-20] MEDS: Atorvastatin Calcium 40 MG Tablet PO (21:45)
[2020-04-21] VITALS (21 sets, daily range): BP systolic 105–130; BP diastolic 62–75; PULSE 82–100; RESP 18–20; TEMP 36.4–36.8; O2SAT 92–97
--- NOTE | 2020-04-21 05:20 | EKG12_ITS ---
Test Reason : AM Blood Pressure : / mmHG Vent. Rate : 082 BPM Atrial Rate : 082 BPM P-R Int : 174 ms QRS Dur : 092 ms QT Int : 378 ms P-R-T Axes : 079 057 072 degrees QTc Int : 441 ms Normal sinus rhythm Low voltage QRS Borderline ECG When compared with ECG of 20-APR-2020 12:34, MANUAL COMPARISON REQUIRED, DATA IS UNCONFIRMED Confirmed by EMERSON HERNANDEZ, DOMINIK ([id number]), editorial cartoonist ELYSSA BAILEY ([id number]) on 04/25/2020 3:28:02 PM Referred By: DEWEY Confirmed By:DOMINIK NORMAN MD
[2020-04-21] MEDS: Aspirin 81 MG TAB.CHEW PO (05:47)
--- NOTE | 2020-04-21 05:55 | EKG12_ITS ---
Test Reason : DYSRHYTHMIA Blood Pressure : / mmHG Vent. Rate : 090 BPM Atrial Rate : 090 BPM P-R Int : 186 ms QRS Dur : 088 ms QT Int : 354 ms P-R-T Axes : 081 067 068 degrees QTc Int : 433 ms Normal sinus rhythm Normal ECG Confirmed by EMERSON HERNANDEZ, DOMINIK ([id number]), editor in chief DEONDRE SANTOS ([id number]) on 04/21/2020 1:11:28 PM Referred By: BEST Confirmed By:DOMINIK NORMAN MD
[2020-04-21 06:00] LABS: Absolute Lymphocyte Count 0.82 X10^3/uL (0.83-4.51); Absolute Neutrophil Count 4.7 X10^3/uL (2.0-7.7); Basophil# 0.01 X10^3/uL; Basophil% 0.2 % (0-1); Eosinophil# 0.11 X10^3/uL; Eosinophils% 1.9 % (0-5); Hematocrit 43.2 % (40-54); Hemoglobin 14.4 g/dL (13.0-16.5); Lymphocyte # 0.82 X10^3/ul (4.0); Lymphocyte % 13.9 % (19-41); Mean Corp Hgb Conc 33.3 g/dL (32-36); Mean Corpuscular Hgb 32.5 pg (27.0-32.0); Mean Corpuscular Volume 97.5 fL (80-94); Mean Platelet Vol. 9.8 fl (6.2-12.0); Monocyte% 5.1 % (0-10); NRBC Flagged by Analyzer 0 % (0-5); Neutrophil # 4.67 X10^3/uL (2.7-7.7); Neutrophil % 78.7 % (47-70); POSITIVE MORPHOLOGY YES; Platelet Count 260 K/mm3 (150-450); RBC Distribution Width CV 12.4 % (11.6-14.6); RBC Distribution Width SD 44.7 fl (35.1-43.9); Red Blood Count 4.43 M/mm3 (4.6-6.2); White Blood Count 5.9 K/mm3 (4.4-11.0)
[2020-04-21 06:14] LABS: Differential Indicated SCAN CRITERIA MET
[2020-04-21 06:35] LABS: Anion Gap 8 (5-15); BUN 9 mg/dL (7-18); BUN/Creat Ratio 11.3 RATIO (10-20); Calcium,Total 8.6 mg/dL (8.5-10.1); Chloride 104 mmol/L (98-107); EST Glomerular Filtration Rate 104 mL/min (>60); Est Glom Filt Rate - Afr Amer 125 mL/min (>60); Estimated Creatinine Clearance 88.28 ml/min; Glucose 132 mg/dL (74-106); Sodium Level 136 mmol/L (136-145)
[2020-04-21 06:47] LABS: Differential Comment SCANNED; Reactive Lymphocyte RARE
[2020-04-21] MEDS: DiphenhydrAMINE 25 MG Capsule 50 MG PO (06:52)
--- NOTE | 2020-04-21 08:10 | CL.D_ITS ---
Patient Name: VICKY SMITH Study Date: 04/21/2020 Performing: Brett Vidal MD Ht: 70.07 inches 178 cm : 1955 Wt: 149.91 lbs 68 kg Age: 64 Gender: male BSA: 1.85 PROCEDURE(S) PERFORMED [id number]-SDR/COR/LV CLINICAL PROFILE AND INDICATIONS Patient presents with NSTEMI for urgent cardiac cath Indications: ACS <= 24 hrs, New Onset Angina <= 2 months, Suspected CAD Heart Failure: None Stress/Imaging Stress/Image Study Performed: No Angina Classification Anginal Classification w/in 2 Weeks: CCS IV CAD Presentations: Unstable angina. Non-STEMI. Symptom onset Date/Time: 04/20/2020 04:30:00 Time Estimated Comorbidities/Risk Factors: Current/Recent Smoker (< 1year) Hypertension Dyslipidemia Peripheral Arterial Disease Chronic Lung Disease CONCLUSIONS Normal LV size, wall motion,and systolic function Perserved Left Ventricular systolic function with normal EDP LVEF: by LV gram 60 % Non obstructive coronary arteries Possibly significant proximal large ramus lesion; will perform stress test in 2 weeks to eval. RECOMMENDATIONS Management as per referring [facility] Stress echocardiogram in 2 weeks time to evaluate ramus intermedius lesion. If abnormal, will return for elective PCI. Continue aspirin, Plavix, beta-kellie, losartan, and statin. Plavix for at least 12 months Manual sheath removal. D/w Dr Parks. DESCRIPTION OF PROCEDURE The patient arrived to the procedure lab. The risks and benefits of the procedure as well as a full d escription of our services here and current unavailability of surgical backup were fully explained to the patient and/or their significant other prior to the catheterization. The Timeout was completed, verifying the correct patient and procedure. The patient's procedural site was prepped and draped in the usual fashion. Local anesthetic was given subcutaneously to right groin region with Lidocaine 2%. Using a modified Seldinger technique, arterial access was obtained via the right femoral artery, a 4 Fr sheath was inserted Left Coronary Artery selective angiography was performed in multiple views us ing a 4 Fr. JL5 catheter. Right Coronary Artery selective angiography was then performed in multiple views using a 4 Fr. 3DRC catheter. Left Ventriculography was performed in WILKERSON projection using a 4 Fr . Pigtail catheter. LV to AO pullback pressures were then recorded.The arterial sheath was pulled and manual compression applied until hemostasis is achieved. CORONARY ANGIOGRAPHY DOMINANCE: Right Dominant LEFT HEART ASSESSMENT Left Ventricular Ejection Fraction: by LV Gram 60 % Normal LV wall motion Normal Left Ventricular systolic function LVEDP: 10 mmHg LEFT MAIN: Non-obstructive LEFT ANTERIOR DESCENDING ARTERY: PROX LAD: Mild calcification, Mild luminal irregularities less than 30% MID LAD: Mild luminal irregularities less than 30% DIAGONAL 1: Proximal - 70 (very small vessel) % Stenosis CIRCUMFLEX ARTERY: Mild luminal irregularities less than 30% OM 1: Proximal - 50 % Stenosis, Mid - Moderate luminal irregularities up to 50% RAMUS: 60 at acute bend in proximal vessel % Stenosis RIGHT CORONARY ARTERY: Mild luminal irregularities less than 30% COMPLICATIONS No Complications PROCEDURE MEDICATIONS Oxygen: 4 L/min via nasal cannula Plavix 75 mg PO 04/21/2020 07:15:09 SUMMARY OF HEMODYNAMIC DATA Time AIR REST ECG 07:20:28 AO 118/66 (86) SA 07:45:06 LV 123/-16, 13 07:52:19 LV 125/-20, 10 07:52:25 LVp 124/-18, 10 07:52:30 AOp 125/61 (88) 07:52:35 Signed By Brett Vidal MD On 04/21/2020 08:09:22 Brett Vidal MD
--- NOTE | 2020-04-21 09:43 | PN_ITS ---
Patient Problems: Active and Suspected Problems Left arm weakness (Acute) COPD exacerbation (Acute) Acute non-STEMI (Acute) Subjective: Chief complaint: Follow-up after admission for acute non-ST elevation SD, acute COPD exacerbation and left upper extremity weakness, stroke ruled out. Patient seen and examined. No acute events overnight. This morning, he went for cardiac catheterization, findings reviewed. Patient states that shortness of breath is getting better, improving. Denied chest pain, palpitation, dizziness or lightheadedness. He denied fever or chills. He has been afebrile, blood pressure and heart rate are stable, pulse ox is 96% on 3 L. - Physical Exam Vitals/I&O's: Vital Signs Temp Pulse Resp BP Pulse Ox 97.6 F L 91 20 H 109/70 95 04/21/20 05:50 04/21/20 06:52 04/21/20 05:50 04/21/20 05:50 04/21/20 05:50 Oxygen Flow Rate (L/min) 3 Oxygen Delivery Method Nasal Cannula Weight: 149 lb 7.574 oz Body Mass Index (BMI) 21.4 Intake and Output for Last 24 Hours 04/19/20 04/20/20 04/21/20 23:59 23:59 23:59 Intake Total 838.75 / 838.75 1006.25 / 1006.25 Output Total 825 / 825 275 / 275 Balance 13.75 / 13.75 731.25 / 731.25 General: Alert, Oriented x3, Cooperative, - - Minimally short of breath. HEENT: Atraumatic, PERRLA, EOMI, Normocephalic Oral: Moist Mucosa, No Gingival or Mucosal Lesions/ Ulcerations Neck: Supple, No JVD, Negative Carotid Bruits, Trachea Midline, Thyroid Normal Size and Texture Lungs: No wheeze, No rales, Diminished, Rhonchi, - - Diminished breath sounds bilateral, scattered rhonchi. Cardiovascular: Regular rate, Regular Rhythm, Normal S1, Normal S2, PMI Normal Abdomen: Bowel Sounds Present, Soft, Non Tender, Non-Distended, No Hepato- splenomegaly Extremities: No clubbing, No cyanosis, No edema Skin: No rashes, No breakdown Lymphatic: No Cervical, Supraclavicular, or Inguinal Adenopathy Neurological: Cranial nerves II-XII grossly intact, Neuro grossly intact Psych/Mental Status: Normal Affect, Appropriate, Alert and oriented to time, place, person, mood and affect Laboratory Results 04/20/20 10:03: WBC 8.5, RBC 4.86, Hgb 15.9, Hct 46.9, MCV 96.5 H, MCH 32.7 H, MCHC 33.9, RDW Std Deviation 43.3, RDW Coeff of Mazin 12.2, Plt Count 264, MPV 10.4, Immature Gran % (Auto) 0.200, Neut % (Auto) 73.1 H, Lymph % (Auto) 15.8 L, [place] % (Auto) 7.7, Eos % (Auto) 2.5, Baso % (Auto) 0.7, Absolute Neuts (auto) 6.2, Absolute Lymphs (auto) 1.34, Nucleated RBC % 0 04/20/20 10:03: PT 13.0, INR 1.0, APTT 24.6, D-Dimer Quant (PE/DVT) 0.45 04/20/20 10:03: Sodium Cancelled, Potassium Cancelled, Chloride Cancelled, Carbon Dioxide Cancelled, Anion Gap Cancelled, BUN Cancelled, Creatinine Cancelled, Estim Creat Clear Calc Cancelled, Est GFR (MDRD) Af Amer Cancelled, Est GFR (MDRD) Non-Af Cancelled, BUN/Creatinine Ratio Cancelled, Glucose Cancelled, Calcium Cancelled, Total Bilirubin Cancelled, AST Cancelled, ALT Cancelled, Alkaline Phosphatase Cancelled, Troponin I Cancelled, Total Protein Cancelled, Albumin Cancelled, Globulin Cancelled, Albumin/Globulin Ratio Cancelled, Lipase Cancelled 04/20/20 10:03: B-Natriuretic Peptide 13.5 04/20/20 10:20: Urine Color Yellow, Urine Clarity Sl. Cloudy, Urine pH 7.0, Ur Specific Bluebell 1.010, Urine Protein Negative, Urine Glucose (UA) Normal, Urine Ketones 15 H, Urine Occult Blood Negative, Urine Nitrite Negative, Urine Bilirubin Negative, Urine Urobilinogen Normal, Ur Leukocyte Esterase Negative, Urine RBC 0 SEEN, Urine WBC 0 SEEN, Ur Squamous Epith Cells 0-5 SEEN, Urine Bacteria 0 SEEN, Urine Mucus 0 SEEN 04/20/20 11:00: Sodium Cancelled, Potassium Cancelled, Chloride Cancelled, Carbon Dioxide Cancelled, Anion Gap Cancelled, BUN Cancelled, Creatinine Cancelled, Estim Creat Clear Calc Cancelled, Est GFR (MDRD) Af Amer Cancelled, Est GFR (MDRD) Non-Af Cancelled, BUN/Creatinine Ratio Cancelled, Glucose Cancelled, Calcium Cancelled, Total Bilirubin Cancelled, AST Cancelled, ALT Cancelled, Alkaline Phosphatase Cancelled, Troponin I Cancelled, Total Protein Cancelled, Albumin Cancelled, Globulin Cancelled, Albumin/Globulin Ratio Cancelled, Lipase Cancelled 04/20/20 11:49: Sodium 133 L, Potassium 4.2, Chloride 104, Carbon Dioxide 21.0, Anion Gap 8, BUN 5 L, Creatinine 0.71, Estim Creat Clear Calc 100.65, Est GFR (MDRD) Af Amer 143, Est GFR (MDRD) Non-Af 119, BUN/Creatinine Ratio 7.1 L, Glucose 93, Calcium 8.7, Total Bilirubin 0.50, AST 22, ALT 24, Alkaline Phosphat ase 67, Troponin I 0.788 H*, Total Protein 6.6, Albumin 3.4, Globulin 3.2, Albumin/Globulin Ratio 1.1, Lipase 63 L 04/20/20 11:49: Triglycerides 61, Cholesterol 141, LDL Cholesterol 87, VLDL Cholesterol 12, HDL Cholesterol 42, TSH 0.64 04/20/20 16:40: Troponin I 1.050 H* 04/20/20 20:12: Troponin I 0.669 H* 04/21/20 05:46: WBC 5.9, RBC 4.43 L, Hgb 14.4, Hct 43.2, MCV 97.5 H, MCH 32.5 H, MCHC 33.3, RDW Std Deviation 44.7 H, RDW Coeff of Mazin 12.4, Plt Count 260, MPV 9.8, Immature Gran % (Auto) 0.200, Neut % (Auto) 78.7 H, Lymph % (Auto) 13.9 L, [place] % (Auto) 5.1, Eos % (Auto) 1.9, Baso % (Auto) 0.2, Absolute Neuts (auto) 4.7, Absolute Lymphs (auto) 0.82 L, Nucleated RBC % 0, Differential Comment SCANNED, Reactive Lymphocytes RARE 04/21/20 05:46: Sodium 136, Potassium 4.0, Chloride 104, Carbon Dioxide 24.0, Anion Gap 8, BUN 9, Creatinine 0.80, Estim Creat Clear Calc 88.28, Est GFR (MDRD) Af Amer 125, Est GFR (MDRD) Non-Af 104, BUN/Creatinine Ratio 11.3, Glucose 132 H, Calcium 8.6 Current Medications Acetaminophen (Tylenol) 650 mg PO Q6H PRN PRN PRN Reason: Pain Score 1-10/Temp > 100.7 F Albuterol Sulfate (Ventolin Aerosols) 2.5 mg INHALATION Q2H PRN PRN PRN Reason: SOB/Wheezing Albuterol/Ipratropium (Duoneb) 3 ml INHALATION Q4HWA.RT [facility] Last Admin: 04/21/20 07:05 Dose: Not Given Documented by: Aspirin (Aspirin, Baby) 81 mg PO DAILY@0800 [facility] Last Admin: 04/21/20 05:47 Dose: 81 mg Documented by: Atorvastatin Calcium (Lipitor) 40 mg PO QHS [facility] Last Admin: 04/20/20 21:45 Dose: 40 mg Documented by: Clopidogrel Bisulfate (Plavix) 75 mg PO DAILY [facility] Guaifenesin (Mucinex) 1,200 mg PO BID [facility] Last Admin: 04/20/20 21:45 Dose: 1,200 mg Documented by: Heparin Sodium (Beef Lung) (Heparin 500 Unit/5 Ml (100/Ml)) 500 unit IV UD PRN PRN Reason: HEPARIN FLUSH Sodium Chloride () 1,000 mls @ 0 mls/hr IV .Q0M [facility] Levofloxacin (Levaquin Iv) 500 mg in 100 mls @ 100 mls/hr IV Q24 [facility] Last Infusion: 04/20/20 17:54 Dose: Infused Documented by: Sodium Chloride () 250 mls @ 15 mls/hr IV .[id number] PRN PRN Reason: Saline Flush Sodium Chloride () 250 mls @ 15 mls/hr IV .[id number] PRN PRN Reason: Additional IVPB Infusion Labetalol HCl (Trandate) 5 mg IV X1 PRN PRN Reason: SBP > 160 prior to sheath pull Losartan Potassium (Cozaar) 25 mg PO DAILY [facility] Magnesium Hydroxide (Milk Of Magnesia) 30 ml PO DAILY [facility] Methylprednisolone (Solu-Medrol) 40 mg IV Q8 [facility] Last Admin: 04/21/20 05:47 Dose: 40 mg Documented by: Metoprolol Tartrate (Lopressor (Beta Lakeisha)) 12.5 mg PO BID [facility] Ondansetron HCl (Zofran) 4 mg IV Q8H PRN PRN PRN Reason: NAUSEA/VOMITING Senna/Docusate Sodium (Senokot-S, Freida-Colace) 2 tablet PO BID PRN PRN PRN Reason: Constipation Sodium Chloride () 10 - 40 ml IV UD PRN PRN Reason: SALINE FLUSH Zolpidem Tartrate (Ambien (Generic)) 5 mg PO QHS PRN PRN PRN Reason: INSOMNIA Medical Necessity - Tobacco Use Smoking Status: Current some day smoker Tobacco Use: Cigarettes Assessment/Plan All Active Problems Left arm weakness (Acute) COPD exacerbation (Acute) Acute non-STEMI (Acute) This is a 64 years old male patient presented to the emergency room because of worsening shortness of breath and left upper extremity weakness and he was found to have acute ST elevation SD, acute COPD exacerbation and left upper extremity weakness, acute stroke ruled out. #1 acute non-ST elevation SD: Status post cardiac catheterization that revealed normal LV size, ejection fraction of 60%, nonobstructive CAD, possible significant proximal large ramus lesion, no interventions performed. Patient denied any chest pain today, shortness of breath has been improving. His vital signs are stable, requiring oxygen. He is on aspirin, statins, Plavix and losartan as well as metoprolol. 2D echocardiogram revealed ejection fraction 55%, stage I diastolic dysfunction, mildly hypokinetic posterior basal wall, RVSP of 26 and bubble contrast study was negative for right to left shunt. Cardiology decided to go with medical treatment for now, plan for stress test as outpatient in 2 weeks. Plan: Continue same treatment, anticipate discharge home tomorrow. #2 acute COPD exacerbation: He is on IV steroids, IV antibiotics and bronchodilators. Symptoms started to improve, still requiring oxygen of up to 3 L. Chest x-ray reviewed, I doubt infiltrate, I doubt pneumonia as well. Patient has been afebrile, no leukocytosis. Plan to continue same treatment, ambulatory pulse oximetry tomorrow morning. #3 left upper extremity weakness/abnormal sensation on the left mouth corner: Symptoms resolved. Unclear etiology. MRI brain showed no acute infarct or hemorrhage. Acute stroke ruled out. #4 COPD: With acute exacerbation as above. Plan as above. #5 tobacco abuse: NicoDerm patch if desired. #6 DVT prophylaxis: Subcu Lovenox. This note was generated with [employer] dictation software. It may contain incorrect words, spelling, and punctuation that were not noted in checking the note before signing. Inpatient E&M: 89666 Subs Hosp L2
[2020-04-21] MEDS: levoFLOXacin IV 500 MG/100 ML BAG 100 MG IV (09:48)
[2020-04-21] MEDS: Losartan Potassium 25 MG Tablet PO (09:50)
[2020-04-21] MEDS: Metoprolol Tartrate 25 MG Tablet 12.5 MG PO ×2 (09:50→21:31)
[2020-04-21] MEDS: Ipratropium/Albuterol Sulfate 3 ML AMPUL.NEB INHALATION ×2 (11:23→15:45)
--- NOTE | 2020-04-21 11:54 | CASEMGMT ---
CECE ROBERTS assessment: Face to Face with patient for initial transition planning/care coordination assessment. CECE ROBERTS introduced self and role at [facility], pt voices understanding and consents to assessment at this time. Pt is sitting up in bed in no distress at this time. Pt is A/OX4 at this time and answers all questions appropriately at this time. Care providers, pharmacy, and demographics verified/updated at this time. Presentation: Pt woke up feeling weak and some numbness in left arm-pt also c/o muscle twitching in left face. pt states his COPD is 'a little worse.' Admitting dx: Acute NSTEMI/COPD exac/Left hand weakness PCP: [facility] Specialists: Pt states no current specialists. [facility]erred [facility]acy[facility] Insurance: [facility] A/B, MMO Prescription Benefit: Express Rx Living Will/HPOA: Pt states has LW/HPOA and is aware that they are not on file at [facility] at this time. Pt's daughter, Kate Herrera, is her HPOA. LNOK: Kate Herrera, daughter/HPOA; Valerie Nova, mother Living Arrangements: Pt lives with and cares for his 90yo mother in 1 story home with laundry in basement. Pt states is independent with ADL's. Transportation: Pt states drives self and states no transportation concerns at this time. DME/HHC: Pt states has grab bars and raised toilet seat, if needed, and declines need for any further DME at this time. Pt states no hx of HHC or SNF in the past. Pt states no concerns with going home at time of discharge. Pt states is retired. Pt states smokes 1/2pk/day but does not drink ETOH. Pt states no further concerns/needs at this time. CM to follow for any further discharge planning/needs. Advised pt to ask for CM if any further questions/concerns/needs arise, voices understanding. Pt Goal: Home Plan: [place] CECE ROBERTS
--- NOTE | 2020-04-21 13:32 | NURSING ---
ambulated pt in room to RR post heart cath bedrest. pt tolerated well, site remains soft, dressing C/D/I.
[2020-04-21] MEDS: 0.9% Saline Lock 10 ML Syringe IV ×2 (14:35→21:31)
[2020-04-21] MEDS: Enoxaparin 40 MG/0.4 ML Syringe SC (14:37)
[2020-04-21] MEDS: Magnesium Hydroxide 30 ML UDC PO (14:37)
[2020-04-21] MEDS: guaiFENesin 1,200 MG Tablet 1200 MG PO (21:31)
[2020-04-21] MEDS: Atorvastatin Calcium 40 MG Tablet PO (21:31)
[2020-04-22] VITALS (8 sets, daily range): BP systolic 101–108; BP diastolic 57–78; PULSE 69–104; RESP 18–20; TEMP 36.5; O2SAT 89–96
[2020-04-22] MEDS: Ipratropium/Albuterol Sulfate 3 ML AMPUL.NEB INHALATION ×3 (03:12→11:45)
[2020-04-22] MEDS: 0.9% Saline Lock 10 ML Syringe IV (05:19)
[2020-04-22] MEDS: levoFLOXacin IV 500 MG/100 ML BAG 100 MG IV (08:53)
[2020-04-22] MEDS: Metoprolol Tartrate 25 MG Tablet 12.5 MG PO (08:54)
[2020-04-22] MEDS: Losartan Potassium 25 MG Tablet PO (08:54)
[2020-04-22] MEDS: Clopidogrel Bisulfate 75 MG Tablet PO (08:54)
[2020-04-22] MEDS: Aspirin 81 MG TAB.CHEW PO (08:54)
[2020-04-22] MEDS: Enoxaparin 40 MG/0.4 ML Syringe SC (08:54)
--- NOTE | 2020-04-22 09:22 | CASEMGMT ---
CECE ROBERTS NOTE: Home oxygen testing has been completed. Pt does not qualify for O2 at this time. Herman MCGREGOR RN CM
--- NOTE | 2020-04-22 09:36 | CASEMGMT ---
SW completed Palliative tool and aptient scored a 2. A referral was not made at this time. LORIE also printed out Good RX coupon for Symbicort as it cost patient $400. With Good RX coupon it is $204.48 at [facility] which is patient's pharmacy. He asked that physician send prescription to [facility] He also completed paperwork for assistance in the future with his PCP already and it has been sent in to the company. Nicole REN REGISTERED NURSE
--- NOTE | 2020-04-22 09:43 | PCM.DC ---
- Discharge Diagnoses Current Active Problems: Current Active and Chronic Problems (Last Updated 04/21/20 @ 17:10 by Marychuy Reardon) History of left heart catheterization (Acute) Left arm weakness (Acute) COPD exacerbation (Acute) Acute non-STEMI (Acute) COPD (chronic obstructive pulmonary disease) (Chronic) Tobacco abuse (Chronic) You will use the following diet at home:: Cardiac Your food should be the consistency of: Regular Discharge Activity: Return to Normal Activity Weight Bearing Status: Weight bearing as tolerated Call your doctor if you observe: Fever of 101 or Higher, Shortness of breath, Dizziness, Fainting spells, Swelling in the ankles, Chest pain, Increased palpitations (irregular heartbeat), Uncontrolled pain Instructions: COPD: Using Inhalers, Treatments for COPD, Heart Attack, Leaving the Hospital Allergies/Adverse Reactions: Allergies No Known Allergies Allergy (Verified 04/20/20 09:44) Medications to take at Discharge Albuterol Sulfate [Albuterol Sulfate HFA] 1 puff INHALATION Q4H PRN PRN 04/20/20 Ipratropium [Atrovent Inhaler] 2 puff INHALATION Q6H PRN PRN 04/20/20 Umeclidinium Brm/Vilanterol Tr [Anoro Ellipta 62.5-25 Mcg INH] 1 puff INHALATION DAILY 04/20/20 cycloBENZAPRine HCl [Flexeril] 10 mg PO PRN PRN 04/20/20 Aspirin [Aspirin, Baby] 81 mg PO DAILY@0800 #90 tab.chew 04/22/20 Atorvastatin Calcium [Lipitor] 40 mg PO QHS #90 tab 04/22/20 Budesonide/Formoterol 160/4.5 [Symbicort 160/4.5 Mcg Inhaler (SP)] 2 puff INHALATION BID #2 inhaler 04/22/20 Clopidogrel Bisulfate [Plavix] 75 mg PO DAILY #90 tab 04/22/20 Levofloxacin [Levaquin] 500 mg PO DAILY #5 tab 04/22/20 Losartan Potassium [Cozaar] 25 mg PO DAILY #90 tab 04/22/20 Metoprolol Tartrate [Lopressor (beta kellie)] 12.5 mg PO BID #90 tab 04/22/20 Prednisone 10 mg PO DAILY #30 tab 04/22/20 The following prescriptions were given: Aspirin [Aspirin, Baby] 81 mg PO DAILY@0800 #90 tab.chew Transmission Status: Pending to [facility] [address] [facility] Losartan Potassium [Cozaar] 25 mg PO DAILY #90 tab Transmission Status: [facility] [facility] Levofloxacin [Levaquin] 500 mg PO DAILY #5 tab Transmission Status: Pending to [facility] [facility] [address] Atorvastatin Calcium [Lipitor] 40 mg PO QHS #90 tab Transmission Status: Pending to [address] Metoprolol Tartrate [Lopressor (beta kellie)] 12.5 mg PO BID #90 tab Transmission Status: Pending to [facility] [facility] [address] Clopidogrel Bisulfate [Plavix] 75 mg PO DAILY #90 tab Transmission Status: Pending to [facility] [address] [facility] Prednisone 10 mg PO DAILY #30 tab Transmission Status: Pending to [facility] Budesonide/Formoterol 160/4.5 [Symbicort 160/4.5 Mcg Inhaler (SP)] 2 puff INHALATION BID #2 inhaler Transmission Status: Pending to [facility] Primary Care Physician: Christoph Stout DO [Primary Care Provider] - Please follow up with your Primary Care Physician in: 1 week. Test Results: Test results from this visit will be discussed in further detail at your follow-up appointment, if applicable. Please Follow Up With: Brett Vidal MD When: 2 weeks.
--- NOTE | 2020-04-22 11:11 | DS.PCM_ITS ---
Discharge Date and Diagnosis - Problem List Patient Problems: Active and Suspected Problems (Last Updated 04/21/20 @ 17:10 by Marychuy Nolt) History of left heart catheterization (Acute) Left arm weakness (Acute) COPD exacerbation (Acute) Acute non-STEMI (Acute) Date of Admission: 04/20/20 Date of Discharge: 04/22/20 - Primary Discharge Diagnosis Acute Problems: Active Problems (Last Updated 04/21/20 @ 17:10 by Marychuy Nolt) #1 acute non-ST elevation DC. #2 acute COPD exacerbation. #3 left upper extremity weakness, resolved, acute stroke ruled out. - Secondary Discharge Diagnosis Chronic Problems: Chronic Problems (Last Updated 04/21/20 @ 17:10 by Marychuy Nolt) COPD (chronic obstructive pulmonary disease) (Chronic) Tobacco abuse (Chronic) Hospital Course and Treatment Imaging Results: Clinical Impression(s) from Imaging Studies Brain CT 04/20/20 09:56 IMPRESSION: Normal unenhanced CT scan of the brain. Electronically Signed: Lonny Mohamud at 10:55 EDT , Service support , Chest X-Ray 04/20/20 09:58 IMPRESSION: Hyperinflation. Findings suggestive of a right infrahilar infiltrate. Electronically Signed: Lonny Mohamud, at 11:09 EDT , Service support , Brain MRI 04/20/20 13:56 IMPRESSION: Mild chronic ischemic changes of the white matter. Electronically Signed: Steven Vazquez MD at 17:32 EDT , Service support , Dr. Vidal, cardiology. Operations: None Procedures: 2-D Echocardiogram, Cardiac catheterization, EKG Summary of Care Provided: Patient seen and examined on the day of discharge and appeared to be stable to be discharged home. Symptoms of shortness of breath improved. Denied any chest pain. His vitals are stable. Ambulatory pulse oximetry performed and his pulse ox dropped down to 89% on room air with ambulation but not less than that. He did not qualify for home oxygen. This is a 64 years old male patient presented to the emergency room because of worsening shortness of breath and left upper extremity weakness and he was found to have acute ST elevation DC, acute COPD exacerbation. #1 acute non-ST elevation DC: Status post cardiac catheterization that revealed normal LV size, ejection fraction of 60%, nonobstructive CAD, possible signific ant proximal large ramus lesion, no interventions performed. Patient was treated with therapeutic Lovenox, aspirin, Plavix, statins, beta-blockers and JOHN inhibitors. 2D echocardiogram revealed ejection fraction 55%, stage I diastolic dysfunction, mildly hypokinetic posterior basal wall, RVSP of 26 and bubble contrast study was negative for right to left shunt. Cardiology decided to go with medical treatment for now, plan for stress test as outpatient in 2 weeks. Patient was discharged on aspirin, Lipitor, Plavix, losartan and metoprolol. #2 acute COPD exacerbation: Treated with IV steroids, IV antibiotics and bronchodilators. Chest x-ray showed no acute infiltrate, but was read as possible right infrahilar infiltrate. I doubted pneumonia. Patient remained afebrile throughout admission and no leukocytosis. With above-mentioned treatment, patient symptoms improved. He was able to come off oxygen. Ambulatory pulse ox performed and patient did not qualify for home oxygen. Patient discharged home in a stable condition, discharged on tapering prednisone, Levaquin for 5 days, discharged on Symbicort, continued on his previous inhalers, counseled and highly recommended to quit smoking at this time. #3 left upper extremity weakness/abnormal sensation on the left mouth corner: Symptoms resolved. Unclear etiology. MRI brain showed no acute infarct or hemorrhage. Acute stroke ruled out. Patient discharged home in stable medical condition, discharged on aspirin, statins, Plavix, beta-blockers and losartan, discharged on tapering prednisone, Levaquin for 5 days, discharged on Symbicort twice daily, instructed not to use Anoro while on Symbicort, instructed to use his other inhalers including ProAir air, recommended from with PCP in 1 week and follow-up with cardiology in 2 weeks. Cardiology is planning to do stress test in 2 weeks. This note was generated with [employer] software. It may contain incorrect words, spelling, and punctuation that were not noted in checking the note before signing. Patient Problems: Active and Suspected Problems (Last Updated 04/21/20 @ 17:10 by Marychuy Reardon) History of left heart catheterization (Acute) Left arm weakness (Acute) COPD exacerbation (Acute) Acute non-STEMI (Acute) - Physical Exam Vitals/I&O's: Vital Signs Temp Pulse Resp BP Pulse Ox 97.7 F L 93 20 H 108/57 L 92 04/22/20 09:00 04/22/20 09:00 04/22/20 09:00 04/22/20 09:00 04/22/20 09:04 Oxygen Flow Rate (L/min) 2 Oxygen Delivery Method Room Air Weight: 149 lb 7.574 oz Body Mass Index (BMI) 21.4 Intake and Output for Last 24 Hours 04/20/20 04/21/20 04/22/20 23:59 23:59 23:59 Intake Total 838.75 / 838.75 2066.25 / 2066.25 220 / 220 Output Total 825 / 825 625 / 625 Balance 13.75 / 13.75 1441.25 / 1441.25 220 / 220 General: Alert, Oriented x3, Cooperative, No apparent distress HEENT: Atraumatic, PERRLA, EOMI, Normocephalic Oral: Moist Mucosa, No Gingival or Mucosal Lesions/ Ulcerations Neck: Supple, No JVD, Negative Carotid Bruits, Trachea Midline, Thyroid Normal Size and Texture Lungs: No rales, Diminished, Rhonchi, Wheezes - Occasional wheezes. Cardiovascular: Regular rate, Regular Rhythm, Normal S1, Normal S2, PMI Normal Abdomen: Bowel Sounds Present, Soft, Non Tender, Non-Distended, No Hepato- splenomegaly Extremities: No clubbing, No cyanosis, No edema Skin: No rashes, No breakdown Lymphatic: No Cervical, Supraclavicular, or Inguinal Adenopathy Neurological: Cranial nerves II-XII grossly intact, Neuro grossly intact Psych/Mental Status: Normal Affect, Appropriate Current Medications Acetaminophen (Tylenol) 650 mg PO Q6H PRN PRN PRN Reason: Pain Score 1-10/Temp > 100.7 F Albuterol Sulfate (Ventolin Aerosols) 2.5 mg INHALATION Q2H PRN PRN PRN Reason: SOB/Wheezing Albuterol/Ipratropium (Duoneb) 3 ml INHALATION Q4HWA.RT LOWELL Last Admin: 04/22/20 07:08 Dose: 3 ml Documented by: Aspirin (Aspirin, Baby) 81 mg PO DAILY@0800 [facility] Last Admin: 04/22/20 08:54 Dose: 81 mg Documented by: Atorvastatin Calcium (Lipitor) 40 mg PO QHS [facility] Last Admin: 04/21/20 21:31 Dose: 40 mg Documented by: Clopidogrel Bisulfate (Plavix) 75 mg PO DAILY [facility] Last Admin: 04/22/20 08:54 Dose: 75 mg Documented by: Enoxaparin Sodium (Lovenox) 40 mg SC DAILY [facility] Last Admin: 04/22/20 08:54 Dose: 40 mg Documented by: Guaifenesin (Mucinex) 1,200 mg PO BID [facility] Last Admin: 04/22/20 08:55 Dose: Not Given Documented by: Heparin Sodium (Beef Lung) (Heparin 500 Unit/5 Ml (100/Ml)) 500 unit IV UD PRN PRN Reason: HEPARIN FLUSH Sodium Chloride () 1,000 mls @ 0 mls/hr IV .Q0M [facility] Levofloxacin (Levaquin Iv) 500 mg in 100 mls @ 100 mls/hr IV Q24 [facility] Last Infusion: 04/22/20 10:50 Dose: Infused Documented by: Sodium Chloride () 250 mls @ 15 mls/hr IV .[id number] PRN PRN Reason: Saline Flush Sodium Chloride () 250 mls @ 15 mls/hr IV .[id number] PRN PRN Reason: Additional IVPB Infusion Labetalol HCl (Trandate) 5 mg IV X1 PRN PRN Reason: SBP > 160 prior to sheath pull Losartan Potassium (Cozaar) 25 mg PO DAILY [facility] Last Admin: 04/22/20 08:54 Dose: 25 mg Documented by: Magnesium Hydroxide (Milk Of Magnesia) 30 ml PO DAILY [facility] Last Admin: 04/22/20 08:55 Dose: Not Given Documented by: Methylprednisolone (Solu-Medrol) 40 mg IV Q8 [facility] [place] Last Admin: 04/22/20 05:19 Dose: 40 mg Documented by: Metoprolol Tartrate (Lopressor (Beta Lakeisha)) 12.5 mg PO BID [facility] Last Admin: 04/22/20 08:54 Dose: 12.5 mg Documented by: Ondansetron HCl (Zofran) 4 mg IV Q8H PRN PRN PRN Reason: NAUSEA/VOMITING Senna/Docusate Sodium (Senokot-S, Freida-Colace) 2 tablet PO BID PRN PRN PRN Reason: Constipation Sodium Chloride () 10 - 40 ml IV UD PRN PRN Reason: SALINE FLUSH Last Admin: 04/22/20 05:19 Dose: 10 ml Documented by: Zolpidem Tartrate (Ambien (Generic)) 5 mg PO QHS PRN PRN PRN Reason: INSOMNIA Discharge Activity: Return to Normal Activity Weight Bearing Status: Weight bearing as tolerated Call your doctor if you observe: Fever of 101 or Higher, Shortness of breath, Dizziness, Fainting spells, Swelling in the ankles, Chest pain, Increased palpitations (irregular heartbeat), Uncontrolled pain Home Medications: Medications to take at Discharge Albuterol Sulfate [Albuterol Sulfate HFA] 1 puff INHALATION Q4H PRN PRN 04/20/20 Ipratropium [Atrovent Inhaler] 2 puff INHALATION Q6H PRN PRN 04/20/20 Umeclidinium Brm/Vilanterol Tr [Anoro Ellipta 62.5-25 Mcg INH] 1 puff INHALATION DAILY 04/20/20 cycloBENZAPRine HCl [Flexeril] 10 mg PO PRN PRN 04/20/20 Aspirin [Aspirin, Baby] 81 mg PO DAILY@0800 #90 tab.chew 04/22/20 Atorvastatin Calcium [Lipitor] 40 mg PO QHS #90 tab 04/22/20 Budesonide/Formoterol 160/4.5 [Symbicort 160/4.5 Mcg Inhaler (SP)] 2 puff INHALATION BID #2 inhaler 04/22/20 Clopidogrel Bisulfate [Plavix] 75 mg PO DAILY #90 tab 04/22/20 Levofloxacin [Levaquin] 500 mg PO DAILY #5 tab 04/22/20 Losartan Potassium [Cozaar] 25 mg PO DAILY #90 tab 04/22/20 Metoprolol Tartrate [Lopressor (beta lakeisha)] 12.5 mg PO BID #90 tab 04/22/20 Prednisone 10 mg PO DAILY #30 tab 04/22/20 Following Prescrptions Were Given to Patient: Aspirin [Aspirin, Baby] 81 mg PO DAILY@0800 #90 tab.chew Transmission Status: Received by [address] Losartan Potassium [Cozaar] 25 mg PO DAILY #90 tab Transmission Status: Received by [address] Levofloxacin [Levaquin] 500 mg PO DAILY #5 tab Transmission Status: Received by [address] Atorvastatin Calcium [Lipitor] 40 mg PO QHS #90 tab Transmission Status: Received by [address] Metoprolol Tartrate [Lopressor (beta lakeisha)] 12.5 mg PO BID #90 tab Transmission Status: Received by [address] Clopidogrel Bisulfate [Plavix] 75 mg PO DAILY #90 tab Transmission Status: Received by [address] Prednisone 10 mg PO DAILY #30 tab Transmission Status: Received by [address] Budesonide/Formoterol 160/4.5 [Symbicort 160/4.5 Mcg Inhaler (SP)] 2 puff INHALATION BID #2 inhaler Transmission Status: Received by [address] Primary Care Physician: Christoph Stout DO [Primary Care Provider] - Please follow up with your Primary Care Physician in: 1 week. Please Follow Up With: Brett Vidal MD When: 2 weeks. Please Follow Up With: Christoph Perera MD Patient Instructions: Heart Attack, COPD: Using Inhalers, Treatments for COPD, Leaving the Hospital Disposition: Home Minutes spent on discharge:: 32 Patient Condition:: Stable Medical Necessity - Tobacco Use Smoking Status: Current some day smoker Tobacco Use: Cigarettes Meaningful Use Info Meaningful Use Diagnoses (Choose all that apply): AMI - AMI/Post PCI/Angioplasty Aspirin given w/in 24hrs of arrival?: Yes ASA at discharge?: Yes Antiplatelet Therapy at Discharge:: Yes Statins at discharge?: Yes John/ARB at discharge?: Yes Beta Lakeisha at discharge?: Yes Done w/ Acute DC measure.: Yes Documented LVEF (%): 55
--- NOTE | 2020-04-22 11:18 | PHA.DC.MC ---
Pharmacy Service has performed discharge medication reconciliation and counseling for this patient. The patient's discharge medication list was reviewed for discrepancies and discrepancies were resolved. *Note: Discussed Anoro and Symbicort with MD; notified that patient not to take Anoro and Symbicort at the same time. Information relayed to patient/ patient's daughter. The patient was counseled on the following discharge medications and changes in medications for homegoing were reviewed. 1. Symbicort 2. Lipitor 3. Plavix 4. Levaquin 5. Prednisone Taper 6. Lopressor 7. Losartan The Reason for Use, instructions for use, and potential side effects were reviewed for all new medications. The patient's questions regarding all of their medications were answered. The patient / family was able to verbally demonstrate an understanding of their discharge medications. Home Medications Albuterol Sulfate [Albuterol Sulfate HFA] 1 puff INHALATION Q4H PRN PRN 04/20/20 Ipratropium [Atrovent Inhaler] 2 puff INHALATION Q6H PRN PRN 04/20/20 Umeclidinium Brm/Vilanterol Tr [Anoro Ellipta 62.5-25 Mcg INH] 1 puff INHALATION DAILY 04/20/20 cycloBENZAPRine HCl [Flexeril] 10 mg PO PRN PRN 04/20/20 Aspirin [Aspirin, Baby] 81 mg PO DAILY@0800 #90 tab.chew 04/22/20 Atorvastatin Calcium [Lipitor] 40 mg PO QHS #90 tab 04/22/20 Budesonide/Formoterol 160/4.5 [Symbicort 160/4.5 Mcg Inhaler (SP)] 2 puff INHALATION BID #2 inhaler 04/22/20 Clopidogrel Bisulfate [Plavix] 75 mg PO DAILY #90 tab 04/22/20 Levofloxacin [Levaquin] 500 mg PO DAILY #5 tab 04/22/20 Losartan Potassium [Cozaar] 25 mg PO DAILY #90 tab 04/22/20 Metoprolol Tartrate [Lopressor (beta kellie)] 12.5 mg PO BID #90 tab 04/22/20 Prednisone 10 mg PO DAILY #30 tab 04/22/20
== END 2020-04-22 11:49 | disposition home or self-care (01) | DRG 281 ==
LOC: ED 11:11 → PCU 13:48
PROVIDERS: Internal Medicine Cardiovascular Disease; Admitting Provider Hospitalist; Emergency Provider Emergency Medicine; PCP Family Medicine; Visit Provider Hospitalist
DX: I21.4 Non-ST elevation (NSTEMI) myocardial infarction (principal); J44.1 Chronic obstructive pulmonary disease with (acute) exacerbation; R53.1 Weakness; Z79.899 Other long term (current) drug therapy; Z79.51 Long term (current) use of inhaled steroids; F17.210 Nicotine dependence, cigarettes, uncomplicated; E78.5 Hyperlipidemia, unspecified
CPT/HCPCS: 36415; 70450; 70551; 71045; 80048; 80053; 80061; 81001; 83690; 83880; 84443; 84484; 85025; 85379; 85610; 85730; 93005; 93306; 93458; 94640; 94667; 94668; 97161; 99285; J7030; J7040; Q9967; A4216; C1769; C1894

== ENCOUNTER → 2020-05-10 | Outpatient (CLI) | payer MEDICARE, OTHER, SELFPAY ==
[2020-04-20 14:10] VITALS: BMI 21.4
--- NOTE | 2020-05-10 09:01 | STE_ITS ---
Reason For Study: CHEST PAIN Stress Results Protocol: Dobtuamine Stress Echo Maximum Predicted HR: 155 bpm Target HR: 132 bpm % Maximum Predicted HR: 86 % DurationHeart Rate Stage (mm:ss) (bpm) BP Dose BASELINE 76 108/64 STAGE 1 5:02 84 110/5810.00 STAGE 2 3:00 107 102/5020.00 STAGE 3 3:00 126 112/5230.00 STAGE 4 2:32 133 100/4240.00 RECOVERY 99 108/78 Stress Duration: 13:34 mm:ss Maximum Stress HR: 133 bpm Baseline Echocardiogram Findings The estimated ejection fraction is 65 %. Stress Echo Wall motion Data Resting WM Intermediate WM Stress WM Resting Wall Motion Wall Motion Stress No regional wall motion No regional wall motion abnormalities noted. abnormalities noted. EKG Data The baseline ECG displays normal sinus rhythm. The patient was titrated from 10 mcg to a maximum of 40 mcg of dobutamine during the stress. The maximum heart rate attained was 133 beats per minute. This was 85% of maximum predicted heart rate. During dobutamine infusion, there were no ST or T wave changes noted to suggest ischemia. No clinical angina was noted. No arrhythmias noted. Interpretation Summary The estimated ejection fraction is 65 %. Normal, adequate, dobutamine echocardiogram. Negative for ischemia by EKG and echocardiographic criteria. No anginal symptoms noted. No arrhythmias noted. Appropriate blood pressure response to dobutamine. Test terminated due to the attainment of target heart rate. Final LVEF is 75%. Patient tolerated procedure well. No complications. Ordering Physician: Noah Copeland Referring Physician: Noah Copeland Performed By: Fern Buitrago RDCS
== END | disposition home or self-care (01) ==
LOC: CVS 09:01
PROVIDERS: PCP Family Medicine; Referring Provider Nurse Practitioner Family; Visit Provider Nurse Practitioner Family
DX: I25.10 Atherosclerotic heart disease of native coronary artery without angina pectoris (principal); R07.9 Chest pain, unspecified
CPT/HCPCS: 93017; 93350; J7040; A4216

== ENCOUNTER → 2020-07-29 | Outpatient (CLI) | payer MEDICARE, OTHER, SELFPAY ==
[2020-07-21 12:50] VITALS: BMI 21.8
--- NOTE | 2020-07-29 10:32 | ART_ITS ---
Reason For Study: Decreased pedal pulses Procedure A bilateral lower extremity continuous wave Doppler with analog waveform analysis,segmental pressures,and ankle brachial indexes without exercise. Left Segmental Pressures Left brachial= 134mmHg. Left posterior tibial artery = 140mmHg. Left dorsalis pedis artery = 142mmHg. The left ankle waveforms are triphasic. The left dorsalis pedis waveforms are triphasic. Right Segmental Pressures Right brachial= 124mmHg. Right posterior tibial artery = 140mmHg. Right dorsalis pedis artery = 142mmHg. The right dorsalis pedis waveforms are triphasic. The right posterior tibial artery waveforms are triphasic. Indices The right ankle brachial index by the dorsalis pedis is 1.06. The right ankle brachial index by the posterior tibial artery is 1.04. The left ankle brachial index by the dorsalis pedis is 1.06. The left ankle brachial index by the posterior tibial artery is 1.04. Interpretation Summary Normal bilateral lower extremity ankle-brachial indices and triphasic Doppler waveforms at rest. Ordering Physician: Dianna Terry Referring Physician: Christoph Stout Performed By: Gregoria Ryder RVT
[2020-07-29 11:53] LABS: AST(SGOT) 26 U/L (15-37); Alanine Aminotransfer ALT/SGPT 45 U/L (16-61); Albumin, Serum 4.1 g/dL (3.2-5.0); Alkaline Phosphatase 72 U/L (45-117); Bilirubin, Direct 0.27 mg/dL (0.00-0.30); Cholesterol 127 mg/dL (200); Globulin 3.1 g/dL (2.2-4.2); High Density Lipoprotein 56 mg/dL; Protein, Total 7.2 g/dL (6.4-8.2); Triglycerides 62 mg/dL; Very Low Density Lipoprotein 12 mg/dL (5-40)
== END | disposition home or self-care (01) ==
LOC: CVS 10:32
PROVIDERS: PCP Family Medicine; Referring Provider Physician Assistant Medical; Visit Provider Physician Assistant Medical
DX: I25.10 Atherosclerotic heart disease of native coronary artery without angina pectoris (principal); I73.9 Peripheral vascular disease, unspecified
CPT/HCPCS: 36415; 80061; 80076; 93923

== ENCOUNTER 2020-11-18 13:49 | Outpatient (RCR) | payer MEDICARE, OTHER, SELFPAY ==
[2020-07-21 12:50] VITALS: BMI 21.8
== END 2020-11-18 23:59 ==
LOC: IMMUN 13:49
PROVIDERS: PCP Family Medicine; Referring Provider Family Medicine; Visit Provider Family Medicine
DX: Z23 Encounter for immunization (principal)
CPT/HCPCS: 0011A; 0012A

== ENCOUNTER → 2021-01-30 07:45 | Outpatient (CLI) | payer MEDICARE, OTHER, SELFPAY ==
[2021-01-23 10:56] VITALS: BMI 20.7
--- NOTE | 2021-01-30 07:47 | MRI_ITS ---
STUDY: MRI CERVICAL SPINE WITHOUT CONTRAST REASON FOR EXAM: Male, 65 years old. pain TECHNIQUE: Standardized fat and water weighted pulse sequences were obtained in the sagittal and axial planes. COMPARISON: X-ray 06/18/2017, MRI 06/18/2017 FINDINGS: Normal foramen magnum and brainstem-cervical cord junction. Normal craniovertebral junction. Normal anterior atlantoaxial articulation. Normal odontoid process. Normal cervical lordosis. Normal vertebral bodies and posterior osseous elements. C2-3: Mild left facet hypertrophy. No disc protrusion, spinal stenosis, or neural foraminal stenosis. C3-4: Normal endplates. Normal disc height, signal and morphology. Normal central canal and intervertebral neural foramina. C4-5: Interval posterior decompression of the with relief of spinal stenosis. 2 mm retrolisthesis of C4 on C5 with a mild broad disc osteophyte complex which is unchanged. No cord compression. C5-6: Interval posterior decompression relief of spinal stenosis. 2 mm retrolisthesis of C5 on C6 with a mild broad disc osteophyte complex which is unchanged. No cord compression. C6-7: No change in the mild broad disc osteophyte complex and bilateral uncovertebral hypertrophy which produces mild spinal stenosis and mild bilateral neural foraminal stenosis. C7-T1: Normal endplates. Normal disc height, signal and morphology. Normal central canal and intervertebral neural foramina. There is no change in the subtle hyperintensities of the cervical spinal cord at the level of C5 and C6 the site of prior posterior decompression consistent with residual myelomalacia. Normal visualized soft tissue structures. MRI/Spine Cervical (Routine) IMPRESSION: Interval posterior decompression at C5 and C6 with relief of spinal stenosis but some residual myelomalacia. Electronically Signed: Daniel Leal MD at 9:39 EDT Tel , Service support ,
== END ==
PROVIDERS: PCP Family Medicine; Referring Provider Orthopaedic Surgery; Visit Provider Orthopaedic Surgery
DX: G89.29 Other chronic pain (principal); G95.89 Other specified diseases of spinal cord; M48.062 Spinal stenosis, lumbar region with neurogenic claudication; M54.40 Lumbago with sciatica, unspecified side
CPT/HCPCS: 72141

== ENCOUNTER → 2021-02-01 07:41 | Outpatient (CLI) | payer MEDICARE, OTHER, SELFPAY ==
[2021-01-23 10:56] VITALS: BMI 20.7
--- NOTE | 2021-02-01 07:42 | MRI_ITS ---
STUDY: MRI THORACIC SPINE WITHOUT CONTRAST REASON FOR EXAM: Male, 65 years old. pain TECHNIQUE: Standardized fat and water weighted pulse sequences were obtained in the sagittal and axial planes. COMPARISON: 06/18/2017 FINDINGS: Normal kyphosis of the thoracic spine. There is no substantial scoliosis. T1-2, T2-3, T3-4, T4-5, T5-6, T6-7, T7-8, T8-9, T9-10, T10-11, T11-12: Mild broad and bilobed disc protrusions throughout the thoracic spine consistent with degenerative disc disease. These produce mild spinal stenosis at multiple levels but no severe spinal stenosis or cord compression. This is most prominent at C2/C3 and is unchanged. Normal visualized thoracic cord. Normal conus medullaris that terminates at the L1.. The soft tissue structures are unremarkable. MRI/Spine Thoracic (Routine) IMPRESSION: No change in mild diffuse degenerative disc disease. No cord compression. Electronically Signed: Daniel Leal MD at 15:12 EDT Tel , Service support ,
--- NOTE | 2021-02-01 09:11 | MRI_ITS ---
STUDY: MRI LUMBAR SPINE WITHOUT CONTRAST REASON FOR EXAM: Male, 65 years old. pain, LEG WEAKNESS BILATERALLY X 5 YRS TECHNIQUE: Standardized fat and water weighted pulse sequences were obtained in the sagittal and axial planes. COMPARISON: X-ray 01/23/2021, MRI 05/01/1970 FINDINGS: T12-L1: Normal endplates. Normal disc height, hydration and morphology. Normal bilateral facet joints. Normal central canal and bilateral lateral recesses. Normal bilateral intervertebral neural foramina. Normal lumbar lordosis. Mild levoscoliosis centered at L3/L4. Normal conus medullaris that terminates at the L1. L1-2: Mild bilateral facet hypertrophy and moderate ligament flavum hypertrophy. No change in the mild bilobed disc protrusion which produces mild spinal stenosis and mild bilateral neural foraminal stenosis. L2-3: Mild bilateral facet hypertrophy and moderate ligament flavum hypertrophy. No change in the 2 mm retrolisthesis of L2 on L3 with a mild bilobed disc protrusion which produces moderate spinal stenosis with moderate bilateral lateral recess stenosis with abutment of the L3 nerve roots bilaterally and mild bilateral neural foraminal stenosis. L3-4: Mild bilateral facet hypertrophy and moderate ligament flavum hypertrophy. No change in the 2 mm retrolisthesis of L3 on L4 with a mild bilobed disc protrusion which produces moderate spinal stenosis with moderate bilateral lateral recess stenosis with abutment of the L4 nerve roots bilaterally, moderate right neural foraminal stenosis with abutment of the right L3 nerve root laterally and mild left neural foraminal stenosis. L4-5: Mild bilateral facet hypertrophy and moderate ligament flavum hypertrophy. No change in the mild broad disc protrusion which produces mild spinal stenosis, mild bilateral lateral recess stenosis but moderate bilateral neural foraminal stenosis with abutment of the exiting L4 nerve roots bilaterally. L5-S1: Mild bilateral facet hypertrophy and ligament flavum hypertrophy. No change in the moderate broad disc protrusion which produces moderate spinal stenosis, mild bilateral lateral recess stenosis and moderate bilateral neural foraminal stenosis with abutment of the exiting L5 nerve roots bilaterally. Normal visualized sacral ala. Normal visualized paraspinous soft tissue structures. MRI/Spine Lumbar (Routine) IMPRESSION: No change from 05/01/2017. Electronically Signed: Daniel Leal MD at 17:13 EDT Tel , Service support ,
== END ==
PROVIDERS: PCP Family Medicine; Referring Provider Orthopaedic Surgery; Visit Provider Orthopaedic Surgery
DX: G89.29 Other chronic pain (principal); M54.40 Lumbago with sciatica, unspecified side; M48.062 Spinal stenosis, lumbar region with neurogenic claudication; G95.89 Other specified diseases of spinal cord
CPT/HCPCS: 72146; 72148

== ENCOUNTER → 2021-02-21 13:28 | Outpatient (CLI) | payer MEDICARE, OTHER, SELFPAY ==
[2021-02-13 11:12] VITALS: BMI 20.7
[2021-02-21 14:07] LABS: Erythrocyte Sedimentation Rate 1 mm/hr (0-20)
[2021-02-21 14:09] LABS: Hematocrit 44.8 % (40-54); Hemoglobin 14.4 g/dL (13.0-16.5); Mean Corp Hgb Conc 32.1 g/dL (32-36); Mean Corpuscular Hgb 31.9 pg (27.0-32.0); Mean Corpuscular Volume 99.1 fL (80-94); Mean Platelet Vol. 10.1 fl (6.2-12.0); Platelet Count 272 K/mm3 (150-450); RBC Distribution Width CV 13.1 % (11.6-14.6); RBC Distribution Width SD 48.4 fl (35.1-43.9); Red Blood Count 4.52 M/mm3 (4.6-6.2); White Blood Count 8.1 K/mm3 (4.4-11.0)
[2021-02-21 14:20] LABS: Vitamin B12 578 pg/mL (211-911)
[2021-02-21 14:30] LABS: ALB/GLOB Ratio 1.2 RATIO (0.9-2.4); AST(SGOT) 22 U/L (15-37); Alanine Aminotransfer ALT/SGPT 37 U/L (16-61); Alkaline Phosphatase 64 U/L (45-117); Anion Gap 5 (5-15); BUN 7 mg/dL (7-18); BUN/Creat Ratio 8.7 RATIO (10-20); Calcium,Total 8.9 mg/dL (8.5-10.1); Chloride 103 mmol/L (98-107); Creatinine, Serum 0.81 mg/dL (0.70-1.30); EST Glomerular Filtration Rate 102 mL/min (>60); Est Glom Filt Rate - Afr Amer 123 mL/min (>60); Globulin 3.2 g/dL (2.2-4.2); Glucose 89 mg/dL (74-106); Protein, Total 7.2 g/dL (6.4-8.2); Sodium Level 135 mmol/L (136-145); Thyroid Stim Hormone (TSH) 0.91 uIU/mL (0.358-3.74)
[2021-02-23 18:37] LABS: ANTINUCLEAR ANTIBODIES DIRECT Negative (Negative)
[2021-02-27 20:08] LABS: Vitamin B1, Thiamine 158.7 nmol/L (66.5-200.0)
[2021-02-27 20:42] LABS: Copper, Serum or Plasma 102 ug/dL (69-132)
== END ==
PROVIDERS: PCP Family Medicine; Referring Provider Psychiatry & Neurology Neurology; Visit Provider Psychiatry & Neurology Neurology
DX: G95.89 Other specified diseases of spinal cord (principal); R26.9 Unspecified abnormalities of gait and mobility; R25.2 Cramp and spasm
CPT/HCPCS: 80053; 82525; 82607; 82746; 84425; 84443; 85027; 85652; 86038; 86225; 86235

== ENCOUNTER → 2021-02-23 12:47 | Outpatient (CLI) | payer MEDICARE, OTHER, SELFPAY ==
[2021-02-13 11:12] VITALS: BMI 20.7
[2021-02-21 14:55] VITALS: BMI 20.7
--- NOTE | 2021-02-23 12:48 | MRI_ITS ---
STUDY: MRI BRAIN WITH AND WITHOUT CONTRAST REASON FOR EXAM: Male, 65 years old. Gait disorder;spasticity TECHNIQUE: Standardized multiplanar fat and water weighted pulse sequences were obtained. IV 14cc dotarem was administered for the contrast portion of the examination. COMPARISON: MRI brain 04/20/2020 FINDINGS: Normal size of the ventricles and extra-axial spaces for the patient''s age. Mild to moderate periventricular white matter ischemic changes without mass effect or restricted diffusion.. Chronic ischemic changes within the pontine bodies bilaterally. Normal bilateral basal ganglia. Normal thalami. There is no extra-axial fluid accumulation. Normal flow voids within the major intracranial circulation suggesting patency by spin echo criteria. Normal venous enhancement. There is no enhancing intra-axial or extra-axial abnormality. Normal sella turcica, pituitary gland, infundibular stalk, optic chiasm and hypothalamus. Normal tectal plate and pineal gland. Normal midbrain and medulla. There is also chronic focal ischemic change in the left cerebellar hemisphere. Normal basal cisterns. Normal bilateral temporal bones. Normal bilateral internal auditory canals. Postsurgical changes of the orbits.. Normal visualized paranasal sinuses. Normal calvarium and skull base. Normal visualized soft tissue structures. Normal visualized upper cervical spine. MRI/Brain W/WO Contrast IMPRESSION: Mild to moderate periventricular white matter ischemic changes without evidence for acute infarct.. Bilateral chronic ischemic changes within the adonis and left cerebellar hemisphere Electronically Signed: Isaac Keane MD at 17:25 EDT , Service support ,
== END ==
PROVIDERS: PCP Family Medicine; Referring Provider Psychiatry & Neurology Neurology; Visit Provider Psychiatry & Neurology Neurology
DX: R25.2 Cramp and spasm (principal); R26.9 Unspecified abnormalities of gait and mobility
CPT/HCPCS: 70553; A9575

== ENCOUNTER → 2021-05-08 10:08 | Outpatient (CLI) | payer MEDICARE, OTHER, SELFPAY ==
[2021-02-13 11:12] VITALS: BMI 20.7
[2021-03-07 12:45] VITALS: BMI 20.3
--- NOTE | 2021-05-08 13:28 | NEURO_ITS ---
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 Now with intermittent tingling in both legs, lower extremity weakness, muscle spasms. Evaluate for peripheral nerve injury. Findings: Nerve conduction studies were performed in the right upper and lower extremities. The right median motor study recording the abductor pollicis brevis showed a normal amplitude, prolonged distal latency and slowed conduction velocity. The right ulnar motor study recording the abductor digiti minimi showed a normal amplitude, normal distal latency and borderline normal conduction velocity. No conduction block or focal slowing was present across the elbow. Right median-ulnar lumbrical / interosseous motor latencies showed a prolonged median latency compared to the ulnar. The right median sensory response recording digit two showed a normal amplitude, prolonged latency and markedly slowed conduction velocity. The right ulnar sensory response recording digit five showed a normal amplitude, normal latency and borderline conduction velocity. The right radial sensory response recording over the extensor snuff box showed a normal amplitude, normal latency and borderline conduction velocity. The right peroneal motor study recording the extensor digitorum brevis showed a mildly reduced amplitude, normal distal latency and slowed conduction velocity. No conduction block or focal slowing was present across the fibular neck. The right peroneal motor study recording the tibialis anterior showed a normal amplitude, normal distal latency and normal conduction velocity. No conduction block or focal slowing was present across the fibular neck.The right tibial motor study recording the abductor hallucis brevis showed a normal amplitude, normal distal latency and normal conduction velocity. Right sural sensory response showed a borderline amplitude and borderline conduction velocity. Right superficial peroneal sensory response was absent. Needle EMG of the upper and lower extremity muscles was performed. No denervation was present in any muscle. All muscles caudal to C5/6 demonstrated reduced activation. In the right upper extremity motor units in the abductor p ollicis brevis were mildly polyphasic, but otherwise unremarkable. Motor units in the first dorsal interosseous were slightly large and long duration. Motor unit morphology and recruitment patterns were normal in the deltoid and triceps. The cervical paraspinal muscles were not sampled due to the patient's prior history of neck surgery. In the right lower extremity all muscles (including the lumbar paraspinal muscles) demonstrated normal motor unit morphology and recruitment patterns. The left lower extremity was not sampled given the symmetry of symptoms and paucity of findings in the right lower extremity. Impression: This is an abnormal study. The diffusely decreased muscle activation suggests a disorder of the central nervous system and would be consistent with the patient's known cervical myelopathy. There is no electrophysiologic evidence a diffuse disorder of the motor neurons and/or their axons. In addition, there was electrophysiologic evidence of a mild median neuropathy a cross the right wrist. These findings are compatible with the clinical diagnosis of carpal tunnel syndrome. Lastly, the chronic reinnervation changes seen in the right first dorsal interosseous are of unclear significance. This could represent a chronic non- localizing ulnar neuropathy or chronic C8/T1 radiculopathy. Clinical correlation is advised. Kushal Munoz D.O.
== END ==
PROVIDERS: PCP Family Medicine; Referring Provider Psychiatry & Neurology Neurology; Visit Provider Psychiatry & Neurology Neurology
DX: M54.16 Radiculopathy, lumbar region (principal); G95.89 Other specified diseases of spinal cord; R26.9 Unspecified abnormalities of gait and mobility
CPT/HCPCS: 95886; 95912

== ENCOUNTER 2022-01-09 15:49 | Inpatient (IN) | payer MEDICARE, OTHER, SELFPAY ==
[2022-01-09] VITALS (14 sets, daily range): BP systolic 104–162; BP diastolic 69–91; PULSE 68–121; RESP 12–32; TEMP 36.1–36.9; O2SAT 94–100; BMI 21.2; BMI 20.9
[2022-01-09] MEDS: Ipratropium/Albuterol Sulfate 3 ML AMPUL.NEB INHALATION ×4 (16:06→23:35)
--- NOTE | 2022-01-09 16:21 | EKG12_ITS ---
Test Reason : SOB Blood Pressure : / mmHG Vent. Rate : 102 BPM Atrial Rate : 102 BPM P-R Int : 178 ms QRS Dur : 086 ms QT Int : 326 ms P-R-T Axes : 079 068 064 degrees QTc Int : 424 ms Sinus tachycardia Otherwise normal ECG Confirmed by EMERSON HERNANDEZ, DOMINIK ([id number]), editor newspaper KIRA SOLIS ([id number]) on 01/10/2022 1:41:28 PM Referred By: MARU Confirmed By:DOMINIK NORMAN MD
--- NOTE | 2022-01-09 16:22 | EDS_ITS ---
HPI History of Present Illness Chief Complaint: Shortness of Breath Narrative Narrative: 66-year-old male with shortness of breath for about 2 weeks. Patient states he is a smoker occasionally and has a history of COPD. He initially saw his primary care doctor who gave him a shot of steroids he states the next day he was better however he is progressively had more shortness of breath. Has not had a fever, chills. He does express that he has some chest tightness and pressure. Patient states that his history of DVT and PE which was revoked after his surgery of his spine. He states initially he was on what he believes to be Coumadin. He is currently on Xarelto for 1 week after following up with his primary care physician who stated that they would try this medication to see if it helps with the shortness of breath. He denies a recent history of DVT/PE. He also reports that he was having a lot of fatigue and when he followed up with Dr. Ragsdale he told him to stop the metoprolol that he takes because this would make him tired this has not helped either. [facility] Medical History Atherosclerotic heart disease of [place] coronary artery without angina pectoris COPD (chronic obstructive pulmonary disease) History of non-ST elevation myocardial infarction (NSTEMI) (04/20/20) Nicotine dependence Tobacco abuse Home Medications albuterol sulfate 1 puff INHALATION Q4H PRN PRN 04/20/20 [History Last Taken 04/20/20] cyclobenzaprine 10 mg tablet 10 mg PO TID PRN #90 tab 07/18/21 [Rx Last Taken Unknown] atorvastatin 40 mg PO QHS 01/09/22 [History Last Taken 01/08/22] budesonide-formoterol 2 puff INHALATION BID 01/09/22 [History Last Taken 01/09/22] losartan 25 mg PO DAILY 01/09/22 [History Last Taken 01/08/22] metoprolol tartrate 12.5 mg PO BID 01/09/22 [History Last Taken 01/09/22] rivaroxaban [Xarelto] mg 01/09/22 [History Last Taken Unknown] vitamin E (dl, acetate) 400 unit PO DAILY 01/09/22 [History Last Taken 01/08/22] Allergy/AdvReac Type Severity Reaction Status Date / Time No Known Allergies Allergy Verified 07/18/21 14:37 Family History Father Arthritis Mother Heart disease kidneys COPD (chronic obstructive pulmonary disease) TIA (transient ischemic attack) Diabetes Kidney disease Ovarian cancer Surgical History H/O cervical spine surgery History of left heart catheterization (04/20/20) Social History household members: other details: mother housing: house Smoking Status: Current some day smoker tobacco type: cigarettes Tobacco: How many years used: 50 alcohol intake: never substance use type: does not use what type of physical activity do you participate in: none do you feel safe at home: Yes ROS ROS ED Constitutional Constitutional ED: Denies chills or fever(s) Eyes Eyes: Denies blurry vision or diplopia ENT ENT ED: Denies rhinorrhea or sore throat Cardiovascular Cardiovascular: Reports chest pain and racing heartbeat Respiratory/Chest Respiratory/Chest: Reports cough, dyspnea and dyspnea on exertion Gastrointestinal Gastrointestinal: Reports abdominal pain Genitourinary Genitourinary ED: Denies dysuria or hematuria Musculoskeletal Musculoskeletal: Denies arthralgias or myalgias Integumentary Denies rash Neurologic Neurologic: Denies headache(s) or weakness Psychiatric Psychiatric: Denies anxiety or depression EXAM Physical Exam Const Vital Signs: 01/09/22 15:50 01/09/22 15:56 01/09/22 15:58 Temperature 98.3 F 98.3 F Temperature Source Oral Oral Pulse Rate 110 H 110 H Respiratory Rate 30 H 30 H Respiratory Effort Short of Breath Respiratory Depth Shallow Respiratory Pattern Tachypnea Blood Pressure 143/91 H 143/91 H Blood Pressure Mean 108 108 Pulse Ox 95 96 Oxygen Delivery Method Room Air Room Air Room Air Fraction of Inspired Oxygen (FIO2) 01/09/22 16:07 01/09/22 16:25 01/09/22 17:00 Temperature 98.3 F Temperature Source Temporal Pulse Rate 104 H 68 Respiratory Rate 32 H 20 H Respiratory Effort Respiratory Depth Respiratory Pattern Tachypnea Blood Pressure 126/86 H Blood Pressure Mean 99 Pulse Ox 100 Oxygen Delivery Method Room Air Bi-pap Fraction of Inspired Oxygen (FIO2) 35 01/09/22 17:11 01/09/22 17:57 Temperature 98 F Temperature Source Temporal Pulse Rate 104 H 99 Respiratory Rate 17 20 H Respiratory Effort Respiratory Depth Respiratory Pattern Normal Blood Pressure 162/77 H Blood Pressure Mean 105 Pulse Ox 100 100 Oxygen Delivery Method Bi-pap Fraction of Inspired Oxygen (FIO2) 35 35 Positive unkempt General Appearance ED: unkempt; Negative for pallor HEENT Reports dry mucous membranes atraumatic Mouth ED: Yes dry mucous membranes Mouth: dry mucous membranes Eyes PERRL and EOMs intact bilaterally General Eye ED: Negative for scleral icterus Resp Effort and Inspection: retractions intercostal and subcostal and uses accessory muscles Auscultation: wheezes Cardio regular rhythm Rate: tachycardic Extremity normal to inspection Neuro oriented x3 and CN's II-XII intact bilaterally Sensorium / Orientation: alert Psych Appearance: unkempt Skin General Skin Exam: Negative for jaundice or pallor Rashes: no rashes MDM MDM MDM Narrative Medical decision making narrative: Patient presenting with chest pain and shortness of breath. He states that his chest pain feels like tightness. This could be associated with his COPD. I did obtain an EKG which on my interpretation shows a sinus tachycardia with a ventricular rate of 102 bpm. Patient was wheezing and tight on arrival so he was given Solu-Medrol and breathing treatments. He was given these x2. CBC reveals a mild white blood cell count of 11.4. Hemoglobin stable at 14.8, platelets 256. BMP shows normal renal function and electrolytes. High-sensitivity troponin is 3. Chest x-ray on my interpretation shows no acute cardiopulmonary process and the radiologist does agree. Patient reevaluated and did have a lot of difficulty breathing. He was more tachypneic and using more accessory muscles and at this point it was determined we would put him on BiPAP which did help him significantly. Patient's blood work is all normal however he will need to be admitted because he is on BiPAP currently for COPD exacerbation. Discussed with the hospitalist and he requested an ABG which will be followed on the floor. Patient stable on admission. Impression: 1. Chest pain 2. Dyspnea 3. COPD exacerbation 4. Respiratory failure Lab Data Labs: Laboratory Results - last 24 hr 01/09/22 01/09/22 15:55 15:55 WBC 11.4 H RBC 4.34 L Hgb 14.8 Hct 42.5 MCV 97.9 H MCH 34.1 H MCHC 34.8 RDW Std Deviation 45.4 H RDW Coeff of Mazin 12.6 Plt Count 256 MPV 9.4 Immature Gran % (Auto) 0.400 Neut % (Auto) 74.9 H Lymph % (Auto) 15.2 L [place] % (Auto) 8.1 Eos % (Auto) 1.1 Baso % (Auto) 0.3 Absolute Neuts (auto) 8.6 H Absolute Lymphs (auto) 1.74 Nucleated RBC % 0 Sodium 132 L Potassium 4.2 Chloride 98 Carbon Dioxide 28.0 Anion Gap 6 BUN 8 Creatinine 0.76 Estim Creat Clear Calc 68.13 Est GFR (MDRD) Af Amer 132 Est GFR (MDRD) Non-Af 109 BUN/Creatinine Ratio 10.6 Glucose 100 Calcium 9.3 Troponin I High Sens < 3 L Radiography Diagnostic Testing: Clinical Impression(s) from Imaging Studies Chest X-Ray 01/09/22 16:25 IMPRESSION: No radiographic evidence of acute cardiopulmonary disease. COPD. at 1644 Reported and signed by: Rasheed Kitchen MD Electronically Signed: Rasheed Kitchen MD at 16:42 EDT , Discharge Plan Triage Chief Complaint: Shortness of Breath ED Provider: Kam Esteban Dx/Rx/DC Orders Primary Care Provider: Christoph Stout
--- NOTE | 2022-01-09 16:25 | RAD_ITS ---
History: chest pain EXAMINATION/TECHNIQUE: XR Chest 1 View: Portable COMPARISON: April 20, 2020 FINDINGS: LINES/DEVICES: None. LUNGS: Lungs remain clear but hyperinflated No pneumothorax. MEDIASTINUM AND CARDIOVASCULAR STRUCTURES: Cardiac silhouette not enlarged. Central airways and mediastinal contour are unremarkable. BONES AND SOFT TISSUES: Unremarkable. RAD/Chest 1 View (Portable) IMPRESSION: No radiographic evidence of acute cardiopulmonary disease. COPD. at 1644 Reported and signed by: Rasheed Kitchen MD Electronically Signed: Rasheed Kitchen MD at 16:42 EDT ,
[2022-01-09] MEDS: Albuterol 2.5 MG/3 ML VIAL.NEB. INHALATION (16:26)
[2022-01-09] MEDS: MethylPREDNISolone 125 MG/2 ML Vial IV (16:28)
[2022-01-09 16:35] LABS: Absolute Lymphocyte Count 1.74 X10^3/uL (0.83-4.51); Absolute Neutrophil Count 8.6 X10^3/uL (2.0-7.7); Basophil# 0.03 X10^3/uL; Basophil% 0.3 % (0-1); Eosinophil# 0.12 X10^3/uL; Eosinophils% 1.1 % (0-5); Hematocrit 42.5 % (40-54); Hemoglobin 14.8 g/dL (13.0-16.5); Lymphocyte # 1.74 X10^3/ul (0.83-4.51); Lymphocyte % 15.2 % (19-41); Mean Corp Hgb Conc 34.8 g/dL (32-36); Mean Corpuscular Hgb 34.1 pg (27.0-32.0); Mean Corpuscular Volume 97.9 fL (80-94); Mean Platelet Vol. 9.4 fl (6.2-12.0); Monocyte# 0.92 X10^3/uL; Monocyte% 8.1 % (0-10); NRBC Flagged by Analyzer 0 % (0-5); Neutrophil # 8.56 X10^3/uL (2.7-7.7); Neutrophil % 74.9 % (47-70); Platelet Count 256 K/mm3 (150-450); RBC Distribution Width CV 12.6 % (11.6-14.6); RBC Distribution Width SD 45.4 fl (35.1-43.9); Red Blood Count 4.34 M/mm3 (4.6-6.2); White Blood Count 11.4 K/mm3 (4.4-11.0)
[2022-01-09 17:04] LABS: Anion Gap 6 (5-15); BUN 8 mg/dL (7-18); BUN/Creat Ratio 10.6 RATIO (10-20); Calcium,Total 9.3 mg/dL (8.5-10.1); Chloride 98 mmol/L (98-107); Creatinine, Serum 0.76 mg/dL (0.70-1.30); EST Glomerular Filtration Rate 109 mL/min (>60); Est Glom Filt Rate - Afr Amer 132 mL/min (>60); Estimated Creatinine Clearance 68.13 ml/min; Glucose 100 mg/dL (74-106); Potassium 4.2 mmol/L (3.5-5.1); Sodium Level 132 mmol/L (136-145); Troponin-I HS < 3 pg/mL (3.0-78.0)
--- NOTE | 2022-01-09 17:55 | ED.RN ---
PT REQUESTED THIS RN TO CALL HIS DAUGHTER. SPOKE TO DAUGHTER AND GAVE AN UPDATE. PT TOLERATING BIPAP WELL
[2022-01-09] MEDS: 0.9% Normal Saline 1,000 ML 999 ML IV (18:02)
[2022-01-09 18:27] LABS: Base Excess 1 mmol/L (-2 to +2); Blood Gas Specimen Type ART; FI02 35; Mode BiLevel; O2 Delivery Device BiPAP; PO2 101 mmHG (75-100); RR 12; SITE R Brach; SO2 98 % (95-99); Total Carbon Dioxide 27 mmol/L; pCO2 40.7 mmHg (35-45); pH 7.41 (7.35-7.45)
--- NOTE | 2022-01-09 18:33 | HP.PCM.HOS_ITS ---
Documented by User: Zoey Malloy NP, REVENUE INVESTIGATOR-C 01/09/22 18:40 HPI - General General Date of Admission: 01/09/22 Date of Service: 01/09/22 Chief Complaint: Shortness of breath HPI Narrative VICKY SMITH, is a 66 M who presents to the emergency room due to shortness of breath. Patient states he has had ongoing shortness of breath for at least 3 weeks. He states he was given a dose of IV steroids 2 weeks ago at his primary care office. His symptoms initially improved however have since worsened. He reports wheezing. Denies cough, fever, chills. Denies recent illness or exposure to sick contacts. Denies other symptoms or complaints. He is not on home oxygen and does not wear BiPAP/CPAP. He has a past medical history of COPD, hypertension, hyperlipidemia. [facility] Medical History Atherosclerotic heart disease of [place] coronary artery without angina pectoris COPD (chronic obstructive pulmonary disease) History of non-ST elevation myocardial infarction (NSTEMI) (04/20/20) Nicotine dependence Tobacco abuse Home Medications albuterol sulfate 1 puff INHALATION Q4H PRN PRN 04/20/20 [History Last Taken 01/09/22] cyclobenzaprine 10 mg tablet 10 mg PO TID PRN #90 tab 07/18/21 [Rx Last Taken 01/08/22] atorvastatin 40 mg PO QHS 01/09/22 [History Last Taken 01/08/22] budesonide-formoterol 2 puff INHALATION BID 01/09/22 [History Last Taken 01/09/22] losartan 25 mg PO DAILY 01/09/22 [History Last Taken 01/08/22] metoprolol tartrate 12.5 mg PO BID 01/09/22 [History Last Taken 01/09/22] rivaroxaban [Xarelto] 2.5 mg PO BID 01/09/22 [History Last Taken 01/09/22] vitamin E (dl, acetate) 400 unit PO DAILY 01/09/22 [History Last Taken 01/08/22] Allergy/AdvReac Type Severity Reaction Status Date / Time No Known Allergies Allergy Verified 07/18/21 14:37 Family History Father Arthritis Mother Heart disease kidneys COPD (chronic obstructive pulmonary disease) TIA (transient ischemic attack) Diabetes Kidney disease Ovarian cancer Surgical History H/O cervical spine surgery History of left heart catheterization (04/20/20) Social History household members: other details: mother housing: house Smoking Status: Current some day smoker tobacco type: cigarettes Tobacco: How many years used: 50 alcohol intake: never substance use type: does not use what type of physical activity do you participate in: none do you feel safe at home: Yes ROS Constitutional Constitutional: Denies change in weight, chills, fatigue, fever(s) or weakness Cardiovascular Cardiovascular: Denies chest pain, edema, lightheadedness, palpitations or syncope Respiratory/Chest Respiratory/Chest: Reports dyspnea, shortness of breath at rest, shortness of breath with exertion and wheezing; Denies cough or productive cough Gastrointestinal Gastrointestinal: Denies abdominal pain, constipation, diarrhea, nausea or vomiting Genitourinary Genitourinary: Denies burning urination, difficulty urinating, dysuria, hematuria, urinary frequency, urinary incontinence or urinary urgency Musculoskeletal Musculoskeletal: Denies back pain, joint pain or muscle weakness Integumentary Integumentary: Denies erythema, lesions, rash or wounds Neurologic Neurologic: Denies abnormal speech, confusion, dizziness, focal weakness, nu mbness, paresthesias, seizure-like activity or syncope Psychiatric Psychiatric: Denies anxiety or depression Hematologic/Lymphatic Hematologic/Lymphatic: Denies anemia, easy bleeding or easy bruising Allergic/Immunologic Allergic/Immunologic: Denies hives or asthma Vital Signs Vital Signs Vital Signs: 01/09/22 15:50 01/09/22 15:56 01/09/22 15:58 Temperature 98.3 F 98.3 F Temperature Source Oral Oral Pulse Rate 110 H 110 H Respiratory Rate 30 H 30 H Respiratory Effort Short of Breath Respiratory Depth Shallow Respiratory Pattern Tachypnea Blood Pressure 143/91 H 143/91 H Blood Pressure Mean 108 108 Pulse Ox 95 96 Oxygen Delivery Method Room Air Room Air Room Air Fraction of Inspired Oxygen (FIO2) 01/09/22 16:07 01/09/22 16:25 01/09/22 17:00 Temperature 98.3 F Temperature Source Temporal Pulse Rate 104 H 68 Respiratory Rate 32 H 20 H Respiratory Effort Respiratory Depth Respiratory Pattern Tachypnea Blood Pressure 126/86 H Blood Pressure Mean 99 Pulse Ox 100 Oxygen Delivery Method Room Air Bi-pap Fraction of Inspired Oxygen (FIO2) 35 01/09/22 17:11 01/09/22 17:57 01/09/22 18:06 Temperature 98 F 98.0 F Temperature Source Temporal Temporal Pulse Rate 104 H 99 98 Respiratory Rate 17 20 H 20 H Respiratory Effort Respiratory Depth Respiratory Pattern Normal Blood Pressure 162/77 H 122/84 H Blood Pressure Mean 105 96 Pulse Ox 100 100 Oxygen Delivery Method Bi-pap Bi-pap Fraction of Inspired Oxygen (FIO2) 35 35 35 Weight Weight: 148 lb 2.41 oz Body Mass Index (BMI) 21.2 Physical Exam Const alert, oriented x3 and no apparent distress Orientation / Consciousness: awake, oriented to person, oriented to place and oriented to time HEENT normocephalic and moist oral mucous membranes Eyes PERRL, EOMs intact bilaterally and conjunctivae normal Neck no lymphadenopathy Resp Effort and Inspection: tachypneic and uses accessory muscles Auscultation: wheezes and diminished lung sounds Cardio regular rate, regular rhythm and no murmurs Peripheral Pulses: pulses 2+ throughout GI normal to inspection, nondistended, normoactive bowel sounds, non-tender and non-distended Extremity normal to inspection Skin no rashes or lesions noted Lesions: no lesions Rashes: no rashes Trauma: no lacerations or abrasions Neuro CN's II-XII intact bilaterally, no focal motor deficits, no sensory deficits noted and deep tendon reflexes 2+ bilaterally Psych mental status grossly normal and affect normal Results Lab / Micro Data Result Diagrams: 01/09/22 15:55 01/09/22 15:55 Labs: Laboratory Results - last 24 hr 01/09/22 15:55: WBC 11.4 H, RBC 4.34 L, Hgb 14.8, Hct 42.5, MCV 97.9 H, MCH 34.1 H, MCHC 34.8, RDW Std Deviation 45.4 H, RDW Coeff of Mazin 12.6, Plt Count 256, MPV 9.4, Immature Gran % (Auto) 0.400, Neut % (Auto) 74.9 H, Lymph % (Auto) 15.2 L, [place] % (Auto) 8.1, Eos % (Auto) 1.1, Baso % (Auto) 0.3, Absolute Neuts (auto) 8.6 H, Absolute Lymphs (auto) 1.74, Nucleated RBC % 0 01/09/22 15:55: Sodium 132 L, Potassium 4.2, Chloride 98, Carbon Dioxide 28.0, Anion Gap 6, BUN 8, Creatinine 0.76, Estim Creat Clear Calc 68.13, Est GFR (MDRD) Af Amer 132, Est GFR (MDRD) Non-Af 109, BUN/Creatinine Ratio 10.6, Glucose 100, Calcium 9.3, Troponin I High Sens < 3 L ABG Data ABG results: ABG 01/09/22 18:20 Specimen Type ART Sample Site R Brach pH 7.41 Bicarbonate Actual 26.0 Total CO2 27 Base Excess 1 O2 Saturation 98 O2 % 35 ABG pCO2 40.7 ABG pO2 101 H Respiration Rate 12 O2 Delivery Device BiPAP Vent Mode BiLevel Radiology Impression Chest X-Ray 01/09/22 16:25 IMPRESSION: No radiographic evidence of acute cardiopulmonary disease. COPD. at 1644 Reported and signed by: Rasheed Kitchen MD Electronically Signed: Rasheed Kitchen MD at 16:42 EDT , Assessment & Plan Assessment/Plan (1) COPD (chronic obstructive pulmonary disease): QUALIFIERS: Chronic bronchitis type: unspecified PLAN: 1. Acute hypoxic respiratory failure secondary to exacerbation of COPD-placed on BiPAP in ED. IV Solu-Medrol. Albuterol and DuoNeb aerosols. Chest x-ray without infiltrate. Continue BiPAP/supplemental oxygen to maintain O2 at or above 90%. 2. Hypertension- continue losartan, metoprolol. 3. Hyperlipidemia-continue statin. 4. History of provoked PE-previously on Coumadin. Patient states his PCP rec ently placed him on Xarelto for unclear etiology? 5. Tobacco dependence-continues to smoke. Encouraged cessation. DVT prophylaxis-Xarelto This patient was seen by NATALIE Mclean under the supervision of Dr. Mcfarland. Time spent examining patient, reviewing data and subsequent management of care: 16 Minutes Documented by User: Dr. Tony Mcfarland MD 01/09/22 19:38 HPI - General General Date of Admission: 01/09/22 [facility] Medical History Atherosclerotic heart disease of [place] coronary artery without angina pectoris COPD (chronic obstructive pulmonary disease) History of non-ST elevation myocardial infarction (NSTEMI) (04/20/20) Nicotine dependence Tobacco abuse Home Medications albuterol sulfate 1 puff INHALATION Q4H PRN PRN 04/20/20 [History Last Taken 01/09/22] cyclobenzaprine 10 mg tablet 10 mg PO TID PRN #90 tab 07/18/21 [Rx Last Taken 01/08/22] atorvastatin 40 mg PO QHS 01/09/22 [History Last Taken 01/08/22] budesonide-formoterol 2 puff INHALATION BID 01/09/22 [History Last Taken 01/09/22] losartan 25 mg PO DAILY 01/09/22 [History Last Taken 01/08/22] metoprolol tartrate 12.5 mg PO BID 01/09/22 [History Last Taken 01/09/22] rivaroxaban [Xarelto] 2.5 mg PO BID 01/09/22 [History Last Taken 01/09/22] vitamin E (dl, acetate) 400 unit PO DAILY 01/09/22 [History Last Taken 01/08/22] Allergy/AdvReac Type Severity Reaction Status Date / Time No Known Allergies Allergy Verified 07/18/21 14:37 Family History Father Arthritis Mother Heart disease kidneys COPD (chronic obstructive pulmonary disease) TIA (transient ischemic attack) Diabetes Kidney disease Ovarian cancer Surgical History H/O cervical spine surgery History of left heart catheterization (04/20/20) Social History household members: other details: mother housing: house Smoking Status: Current some day smoker tobacco type: cigarettes Tobacco: How many years used: 50 alcohol intake: never substance use type: does not use what type of physical activity do you participate in: none do you feel safe at home: Yes Results Lab / Micro Data Result Diagrams: 01/09/22 15:55 01/09/22 15:55 Charges/Coding Addendum Addendum: Dr. Mcfarland: I personally reviewed the chart and examined the patient, and agree with the above findings.66-year-old male with a history of COPD presents with what seems to be a COPD exacerbation. Chest x-ray was unremarkable in the ER. He has been having shortness of breath for about 3 weeks now and he had seen his primary care doctor who gave him a shot of steroids about 2 weeks earlier. Initially his symptoms improved and then they got worse he reported some wheezing and had diminished breath sounds on exam today. On admission he did not have any episodes of hypoxia that have been documented, he was placed on BiPAP by the ED physician secondary to pain tachypnea and work of breathing. During my eval uation in getting his history he wanted the BiPAP off she could talk easier and he was maintaining above 95% on room air during our conversation. Unfortunately no ABG was done before BiPAP was initiated and the ABG after he was on BiPAP showed a PCO2 of 40 with only a PO2 of 101. We will continue with steroids and breathing treatments and also try to obtain a sputum culture, he does have a slight leukocytosis of 11.4 but he is afebrile and there is no consolidation on his chest x-ray. If there is no significant improvement with current interventions he may benefit from a CTA of the chest for further evaluation and characterization. Clinical time spent in all aspects of patient care: 45 m inutes Visit Charges Inpatient E&M: 67579 Init Hosp L2
[2022-01-09 18:54] LABS: Troponin-I HS < 3 pg/mL (3.0-78.0)
[2022-01-09] MEDS: 0.9% Saline Lock 10 ML Syringe IV (20:59)
[2022-01-09] MEDS: Rivaroxaban 2.5 MG Tablet PO (22:16)
[2022-01-09] MEDS: Metoprolol Tartrate 25 MG Tablet 12.5 MG PO (22:16)
[2022-01-09] MEDS: Atorvastatin Calcium 40 MG Tablet PO (22:19)
[2022-01-09] MEDS: cycloBENZAPRine HCl 10 MG Tablet PO (22:24)
[2022-01-09] MEDS: MELATONIN 3 MG TABLET PO (23:33)
[2022-01-10] VITALS (10 sets, daily range): BP systolic 101–111; BP diastolic 65–72; PULSE 71–95; RESP 16–22; TEMP 36.2–36.7; O2SAT 91–95
[2022-01-10] MEDS: Acetaminophen 325 MG Tablet 650 MG PO (03:30)
[2022-01-10] MEDS: 0.9% Saline Lock 10 ML Syringe IV ×2 (05:25→10:34)
[2022-01-10 06:36] LABS: Absolute Lymphocyte Count 0.72 X10^3/uL (0.83-4.51); Basophil# 0.01 X10^3/uL; Basophil% 0.1 % (0-1); Eosinophil# 0.01 X10^3/uL; Eosinophils% 0.1 % (0-5); Hematocrit 36.4 % (40-54); Hemoglobin 12.4 g/dL (13.0-16.5); Lymphocyte # 0.72 X10^3/ul (0.83-4.51); Lymphocyte % 7.9 % (19-41); Mean Corp Hgb Conc 34.1 g/dL (32-36); Mean Corpuscular Hgb 32.7 pg (27.0-32.0); Mean Platelet Vol. 9.4 fl (6.2-12.0); Monocyte# 0.34 X10^3/uL; Monocyte% 3.7 % (0-10); NRBC Flagged by Analyzer 0 % (0-5); Neutrophil % 87.8 % (47-70); Platelet Count 237 K/mm3 (150-450); RBC Distribution Width CV 12.8 % (11.6-14.6); RBC Distribution Width SD 44.7 fl (35.1-43.9); Red Blood Count 3.79 M/mm3 (4.6-6.2); White Blood Count 9.1 K/mm3 (4.4-11.0)
[2022-01-10 06:56] LABS: Anion Gap 6 (5-15); BUN 9 mg/dL (7-18); BUN/Creat Ratio 15.4 RATIO (10-20); Calcium,Total 8.9 mg/dL (8.5-10.1); Chloride 98 mmol/L (98-107); Creatinine, Serum 0.58 mg/dL (0.70-1.30); EST Glomerular Filtration Rate 147 mL/min (>60); Est Glom Filt Rate - Afr Amer 178 mL/min (>60); Glucose 138 mg/dL (74-106); Sodium Level 131 mmol/L (136-145)
[2022-01-10] MEDS: Ipratropium/Albuterol Sulfate 3 ML AMPUL.NEB INHALATION ×2 (07:12→11:22)
--- NOTE | 2022-01-10 10:05 | PCM.DC ---
Discharge Instructions Diet Discharge Diet: No restrictions Activity Discharge Activity: Return to Normal Activity Dressing / Incision Call your doctor if you observe: Shortness of breath, Dizziness and Chest pain Follow Up Care Test Results: Test results from this visit will be discussed in further detail at your follow-up appointment, if applicable. Discharge Plan Admission Admit Date/Time: 01/09/22 18:03 Primary Reason for Your Visit: COPD exacerbation Attending Provider: Alexis Saenz Primary Care Provider: Christoph Stout Discharge Orders/Prescriptions Prescriptions: New prednisone 10 mg tablet See Taper mg PO DAILY Qty: 30 RF: 0 Continued cyclobenzaprine 10 mg tablet 10 mg PO TID PRN (Reason: muscle spasm) Qty: 90 RF: 4 albuterol sulfate 90 mcg/actuation HFA aerosol inhaler 1 puff inhalation Q4H PRN PRN (Reason: Sob &/Or Wheezing) RF: 0 Xarelto 2.5 mg tablet 2.5 mg PO BID RF: 0 atorvastatin 40 mg tablet 40 mg PO QHS RF: 0 losartan 25 mg tablet 25 mg PO DAILY RF: 0 metoprolol tartrate 25 mg tablet 12.5 mg PO BID RF: 0 vitamin E (dl, acetate) 180 mg (400 unit) capsule 400 unit PO DAILY RF: 0 budesonide-formoterol [Symbicort] 160-4.5 mcg/actuation Hfa Aerosol Inhaler 2 puff INHALATION BID RF: 0 Referrals / Follow Up: Christoph Stout DO [Primary Care Provider] - In 1 Week Disposition Disposition (needs filled in before D/C Order can be placed): Home, Self Care
--- NOTE | 2022-01-10 10:20 | DS.PCM_ITS ---
Documented by User: Zoey Malloy NP, [employer]ION[employer] MARKETING DIRECTOR-C 01/10/22 10:24 Providers Date of Admission: 01/09/22 Date of Discharge: 01/10/22 Primary Care Physician: Dr. Christoph Stout DO Reason For Visit: COPD EXACERBATION Diagnosis Discharge Diagnosis (1) COPD (chronic obstructive pulmonary disease): Status: Chronic Code(s): J44.9 - Chronic obstructive pulmonary disease, unspecified Qualifiers: Chronic bronchitis type: unspecified Medications at Discharge Home Medications albuterol sulfate 1 puff INHALATION Q4H PRN PRN 04/20/20 cyclobenzaprine 10 mg tablet 10 mg PO TID PRN #90 tab 07/18/21 Xarelto 2.5 mg PO BID 01/09/22 atorvastatin 40 mg PO QHS 01/09/22 budesonide-formoterol [Symbicort] 2 puff INHALATION BID 01/09/22 losartan 25 mg PO DAILY 01/09/22 metoprolol tartrate 12.5 mg PO BID 01/09/22 vitamin E (dl, acetate) 400 unit PO DAILY 01/09/22 prednisone See Taper PO DAILY #30 tab 01/10/22 Hospital Course Operations None Procedures None Summary of Care Provided Hospital Course: Patient is a 66-year-old male admitted 01/09/2022 due to shortness of breath. 1. Exacerbation of COPD-acute respiratory failure ruled out. Placed on BiPAP in ED however patient not noted to be hypoxic and BiPAP fairly temporary. IV Solu-Medrol during admission. Chest x-ray without infiltrate. Patient improved quicker than expected, stable at time of discharge. Ambulatory pulse ox completed and patient did not require supplemental oxygen. Continue home inhaler regimen. Prednisone taper at discharge. Follow-up with PCP in 1 week. 2. Hypertension- continue losartan, metoprolol. 3. Hyperlipidemia-continue statin. 4. History of provoked PE-previously on Coumadin. Patient states his PCP recently placed him on Xarelto for unclear etiology? If no clear indication, recommend discontinuing anticoagulation. 5. Tobacco dependence-continues to smoke. Encouraged cessation. Physical Exam Const alert, oriented x3 and no apparent distress Orientation / Consciousness: awake, oriented to person, oriented to place and oriented to time HEENT normocephalic and moist oral mucous membranes Eyes PERRL, EOMs intact bilaterally and conjunctivae normal Neck no lymphadenopathy Resp Effort and Inspection: No distress noted Auscultation: Diminished lung sounds, wheezing improved Cardio regular rate, regular rhythm and no murmurs Peripheral Pulses: pulses 2+ throughout GI normal to inspection, nondistended, normoactive bowel sounds, non-tender and non-distended Extremity normal to inspection Skin no rashes or lesions noted Lesions: no lesions Rashes: no rashes Trauma: no lacerations or abrasions Neuro CN's II-XII intact bilaterally, no focal motor deficits, no sensory deficits noted and deep tendon reflexes 2+ bilaterally Psych mental status grossly normal and affect normal Patient seen and examined prior to discharge. Physical assessment as noted above. Patient is stable for discharge with follow up recommendations as noted above. This patient was seen by NATALIE Mclean under the supervision of Dr. Saenz. Time spent examining patient, reviewing data and subsequent management of care: 14 Minutes Weight / BMI Weight Weight: 145 lb 14.4 oz Body Mass Index (BMI) 20.9 ABG / Lab / Microbiology Data Result Diagrams: 01/10/22 05:54 01/10/22 05:54 Laboratory: Laboratory Results - last 24 hr 01/09/22 15:55: WBC 11.4 H, RBC 4.34 L, Hgb 14.8, Hct 42.5, MCV 97.9 H, MCH 34.1 H, MCHC 34.8, RDW Std Deviation 45.4 H, RDW Coeff of Mazin 12.6, Plt Count 256, MPV 9.4, Immature Gran % (Auto) 0.400, Neut % (Auto) 74.9 H, Lymph % (Auto) 15.2 L, [place] % (Auto) 8.1, Eos % (Auto) 1.1, Baso % (Auto) 0.3, Absolute Neuts (auto) 8.6 H, Absolute Lymphs (auto) 1.74, Nucleated RBC % 0 01/09/22 15:55: Sodium 132 L, Potassium 4.2, Chloride 98, Carbon Dioxide 28.0, Anion Gap 6, BUN 8, Creatinine 0.76, Estim Creat Clear Calc 68.13, Est GFR (MDRD) Af Amer 132, Est GFR (MDRD) Non-Af 109, BUN/Creatinine Ratio 10.6, Glucose 100, Calcium 9.3, Troponin I High Sens < 3 L 01/09/22 18:25: Troponin I High Sens < 3 L 01/10/22 05:54: WBC 9.1, RBC 3.79 L, Hgb 12.4 L, Hct 36.4 L, MCV 96.0 H, MCH 32 .7 H, MCHC 34.1, RDW Std Deviation 44.7 H, RDW Coeff of Mazin 12.8, Plt Count 237, MPV 9.4, Immature Gran % (Auto) 0.400, Neut % (Auto) 87.8 H, Lymph % (Auto) 7.9 L, [place] % (Auto) 3.7, Eos % (Auto) 0.1, Baso % (Auto) 0.1, Absolute Neuts (auto) 8.0 H, Absolute Lymphs (auto) 0.72 L, Nucleated RBC % 0 01/10/22 05:54: Sodium 131 L, Potassium 4.0, Chloride 98, Carbon Dioxide 27.0, Anion Gap 6, BUN 9, Creatinine 0.58 L, Estim Creat Clear Calc 67.10, Est GFR (MDRD) Af Amer 178, Est GFR (MDRD) Non-Af 147, BUN/Creatinine Ratio 15.4, Glucose 138 H, Calcium 8.9 ABG: ABG 01/09/22 18:20 Specimen Type ART Sample Site R Brach pH 7.41 Bicarbonate Actual 26.0 Total CO2 27 Base Excess 1 O2 Saturation 98 O2 % 35 ABG pCO2 40.7 ABG pO2 101 H Respiration Rate 12 O2 Delivery Device BiPAP Vent Mode BiLevel Radiography Diagnostic Testing: Radiology Impression Chest X-Ray 01/09/22 16:25 IMPRESSION: No radiographic evidence of acute cardiopulmonary disease. COPD. at 1644 Reported and signed by: Rasheed Kitchen MD Electronically Signed: Rasheed Kitchen MD at 16:42 EDT , D/C Instructions Discharge Diet: No restrictions Call your doctor if you observe: Shortness of breath, Dizziness and Chest pain Meaningful Use Info Meaningful Use Diagnoses (Choose all that apply): None applicable Discharge Plan Admission Admit Date/Time: 01/09/22 18:03 Primary Reason for Your Visit: COPD exacerbation Attending Provider: Alexis Saenz Primary Care Provider: Christoph Stout Discharge Orders/Prescriptions Prescriptions: New prednisone 10 mg tablet See Taper mg PO DAILY Qty: 30 RF: 0 Continued cyclobenzaprine 10 mg tablet 10 mg PO TID PRN (Reason: muscle spasm) Qty: 90 RF: 4 albuterol sulfate 90 mcg/actuation HFA aerosol inhaler 1 puff inhalation Q4H PRN PRN (Reason: Sob &/Or Wheezing) RF: 0 Xarelto 2.5 mg tablet 2.5 mg PO BID RF: 0 atorvastatin 40 mg tablet 40 mg PO QHS RF: 0 losartan 25 mg tablet 25 mg PO DAILY RF: 0 metoprolol tartrate 25 mg tablet 12.5 mg PO BID RF: 0 vitamin E (dl, acetate) 180 mg (400 unit) capsule 400 unit PO DAILY RF: 0 budesonide-formoterol [Symbicort] 160-4.5 mcg/actuation Hfa Aerosol Inhaler 2 puff INHALATION BID RF: 0 Referrals / Follow Up: Christoph Stout DO [Primary Care Provider] - In 1 Week Sincere Mena DO [STAFF PHYSICIAN] - See Referral Note (Call for follow-up with pulmonary medicine to establish, soonest available. ) Disposition Disposition (needs filled in before D/C Order can be placed): Home, Self Care Documented by User: Dr. Alexis Saenz DO 01/10/22 11:45 Providers Date of Admission: 01/09/22 Reason For Visit: COPD EXACERBATION Medications at Discharge Home Medications albuterol sulfate 1 puff INHALATION Q4H PRN PRN 04/20/20 cyclobenzaprine 10 mg tablet 10 mg PO TID PRN #90 tab 07/18/21 Xarelto 2.5 mg PO BID 01/09/22 atorvastatin 40 mg PO QHS 01/09/22 budesonide-formoterol [Symbicort] 2 puff INHALATION BID 01/09/22 losartan 25 mg PO DAILY 01/09/22 metoprolol tartrate 12.5 mg PO BID 01/09/22 vitamin E (dl, acetate) 400 unit PO DAILY 01/09/22 prednisone See Taper PO DAILY #30 tab 01/10/22 Hospital Course Operations None Procedures None Summary of Care Provided Minutes Spent on Discharge: 20 Hospital Course: Patient seen and examined independently. Data and vitals reviewed. I agree with the above note by the nurse practitioner. 66-year-old male who has chronic shortness of breath and dyspnea on exertion presents with acutely worsening shortness of breath. Patient was placed on BiPAP but was never reportedly hypoxic. Patient is currently on room air and does get winded with ambulation to the restroom but his pulse ox has remained stable. Patient will be discharged home without oxygen. Patient has not seen a electrician bus on patient will be given information to follow-up pulmonology as outpatient. Patient expressed apprehension because his parents were established with a electrician bus and, according the patient, did not yield good results. Patient may follow-up with [place] pulmonology. Chest x-ray reviewed and showed no infiltrate. Hyperinflated airways consistent with COPD. Patient be discharged with prednisone. Patient has other bronchodilators at home he will continue. No evidence of pneumonia so patient will not be discharged on antibiotics. Patient improved much faster than initially anticipated. Physical Exam Resp normal respiratory effort and no retractions Cardio regular rate, regular rhythm, S1 normal heart sound and S2 normal heart sound GI normal to inspection, nondistended, normoactive bowel sounds, soft to palpation, non-tender and non-distended Extremity normal to inspection ABG / Lab / Microbiology Data Result Diagrams: 01/10/22 05:54 01/10/22 05:54 Discharge Plan Admission Admit Date/Time: 01/09/22 18:03 Primary Reason for Your Visit: COPD exacerbation Attending Provider: Alexis Saenz Primary Care Provider: Christoph Stout Discharge Orders/Prescriptions Prescriptions: New prednisone 10 mg tablet See Taper mg PO DAILY Qty: 30 RF: 0 Continued cyclobenzaprine 10 mg tablet 10 mg PO TID PRN (Reason: muscle spasm) Qty: 90 RF: 4 albuterol sulfate 90 mcg/actuation HFA aerosol inhaler 1 puff inhalation Q4H PRN PRN (Reason: Sob &/Or Wheezing) RF: 0 Xarelto 2.5 mg tablet 2.5 mg PO BID RF: 0 atorvastatin 40 mg tablet 40 mg PO QHS RF: 0 losartan 25 mg tablet 25 mg PO DAILY RF: 0 metoprolol tartrate 25 mg tablet 12.5 mg PO BID RF: 0 vitamin E (dl, acetate) 180 mg (400 unit) capsule 400 unit PO DAILY RF: 0 budesonide-formoterol [Symbicort] 160-4.5 mcg/actuation Hfa Aerosol Inhaler 2 puff INHALATION BID RF: 0 Referrals / Follow Up: Christoph Stout DO [Primary Care Provider] - In 1 Week Sincere Mena DO [STAFF PHYSICIAN] - See Referral Note (Call for follow-up with pulmonary medicine to establish, soonest available. ) Disposition Disposition (needs filled in before D/C Order can be placed): Home, Self Care Charges/Coding Visit Charges Inpatient E&M: 08317 Disch Hosp
[2022-01-10] MEDS: Metoprolol Tartrate 25 MG Tablet 12.5 MG PO (10:33)
[2022-01-10] MEDS: Losartan Potassium 25 MG Tablet PO (10:34)
[2022-01-10] MEDS: Rivaroxaban 2.5 MG Tablet PO (10:34)
--- NOTE | 2022-01-10 10:46 | CASEMGMT ---
CECE ROBERTS assessment: Face to Face with patient for initial transition planning/care coordination assessment. CECE ROBERTS introduced self and role at [facility], pt voices understanding and consents to assessment. Pt is sitting up on side of bed on room air. Pt does have some use of accessory muscle and tachypnea at times. Pt is A/Ox4 and answers all questions appropriately. Care providers, pharmacy, and demographics verified. Presentation: Pt c/o SOB a few hours ago-pt not able to catch breat, dizzy, chest pressure Admitting dx: COPD exac PCP: [facility] Specialists: Pt states currently not seeing any specialists. Preferred Pharmacy: [facility]/Kayleen Bennett Insurance: MCR A/B, MMO Prescription Benefit: Express Rx Living Will/HPOA: Pt states has LW/HPOA and is aware that they are not on file at [facility]. Pt states his daughter, Kate Herrera, is HPOA. LNOK: Kate Herrera, daughter/HPOA; Suraj Barcenasgianfranco, friend Living Arrangements: Pt lives alone in 1 story home with laundry in basement and states no concerns at home. Pt is independent with ADL's. Transportation: Pt drives self and states no transportation concerns. DME/HHC: Pt has the following DME: grab bars and raised toilet seat(does not use). Pt states no need for any further DME. Pt states no hx of HHC or SNF in the past. Pt states no concerns with going home at time of discharge. Pt is retired. Pt states still smokes 'occasionally' and is trying to quit with Nicorette. Pt states does not drink ETOH. Pt voices no further concerns/needs. CM to follow for home oxygen need and any further discharge planning/needs. Advised pt to ask for CM if any further questions/concerns/needs arise, voices understanding. Pt Goal: Home Plan: [place] CECE ROBERTS
[2022-01-10] MEDS: cycloBENZAPRine HCl 10 MG Tablet PO (10:55)
--- NOTE | 2022-01-10 11:10 | CASEMGMT ---
Per Linh RN, pt does not qualify for home oxygen. SStsintia ZHAO CM
== END 2022-01-10 13:32 | disposition home or self-care (01) | DRG 192 ==
LOC: ED 17:58 → PCU 18:13
PROVIDERS: Admitting Provider Family Medicine; Emergency Provider Student in an Organized Health Care Education/Training Program; PCP Family Medicine
DX: J44.1 Chronic obstructive pulmonary disease with (acute) exacerbation (principal); E78.5 Hyperlipidemia, unspecified; I25.10 Atherosclerotic heart disease of native coronary artery without angina pectoris; I10 Essential (primary) hypertension; F17.210 Nicotine dependence, cigarettes, uncomplicated; I25.2 Old myocardial infarction; Z79.01 Long term (current) use of anticoagulants; Z79.51 Long term (current) use of inhaled steroids; Z79.899 Other long term (current) drug therapy; Z86.711 Personal history of pulmonary embolism
CPT/HCPCS: 36415; 36600; 71045; 80048; 82803; 84484; 85025; 87070; 87077; 87186; 87205; 93005; 94002; 94640; 94762; 99285; 99406; J7030; A4216

== ENCOUNTER → 2022-02-07 | Outpatient (CLI) | payer MEDICARE, OTHER, SELFPAY ==
--- NOTE | 2022-02-07 13:01 | CT_ITS ---
STUDY: LOW DOSE CT LUNG CANCER SCREENING REASON FOR EXAM: Male, 66 years old. Tobacco Dependency RADIATION DOSAGE (If Supplied By Facility): CTDIvol = ( 1.59 ) mGy, DLP = ( 61.56 ) mGycm TECHNIQUE: No contrast was administered. Low dose technique was utilized (average mAS-38 and kVp 120). 1.25 mm axial source images with a slice interval of 1.25-mm were reconstructed in lung windows. 2.5 mm axial source images with a slice interval of 2.5-mm were reconstructed in lung windows. 5.0 mm axial source images with a slice interval of 5.0-mm were reconstructed in soft tissue windows. COMPARISON: None. NODULES: There is a 1.2 cm x 0.6 cm spiculated nodule in the right upper lobe as seen on axial image #54 and coronal image #69. Findings suggestive of a scarring at the lung apices slightly more prominent along the posterior aspect of the right upper lobe. There are 3 slightly spiculated nodular densities in the peripheral lateral aspect of the left lower lobe as seen on axial image #202. The largest nodule measures 7.5 mm. Emphysema: Hyperinflation. Diffuse emphysematous changes with the centrilobular emphysematous findings. Mild increase in the markings in the peripheral lateral aspect of the lingular segment of the left upper lobe abutting the left major fissure as well as increased linear markings in the medial aspect of the right middle lobe. Endobronchial lesion: None Aorta: Atherosclerotic calcification. CORONARY ARTERIES: Coronary artery calcification Heart: Unremarkable Pulmonary artery: Mediastinal nodes: Calcified small bilateral hilar lymph nodes. Small benign-appearing cyst on the lymph nodes. Other chest and abdominal findings: CT/Low Dose CT Lung Screening IMPRESSION: Lung-RADS category 4B - Chest CT with or without contrast, PET/CT and/or tissue sampling can be obtained depending on the probability of malignancy and comorbidities. IMPORTANT NOTES FOR USE: ACR Lung-RADS Version 1.1 Assessment Categories Release Date: 2018 Category: Coded 0-4 bases on nodule(s) with highest degree of suspicion. Negative screen is defined as categories 1 and 2; a positive screen is defined as categories 3 and 4. Category 3 and 4A nodules that are unchanged on interval CT should be coded as category 2, and individuals returned to screening in 12 months. Category 4X: Category 3 or 4 nodules with additional imaging findings that increase the suspicion of lung cancer, such as spiculation, GGN that doubles in size in 1 year, enlarged lymph notes, etc. Category Modifiers: S (significant finding unrelated to lung cancer) Electronically Signed: Lonny Mohamud MD at 8:34 EDT ,
== END | disposition home or self-care (01) ==
LOC: CT 13:00
PROVIDERS: PCP Family Medicine; Referring Provider Internal Medicine Critical Care Medicine; Visit Provider Internal Medicine Critical Care Medicine
DX: Z87.891 Personal history of nicotine dependence (principal)
CPT/HCPCS: 71271

== ENCOUNTER → 2022-02-14 | Outpatient (CLI) | payer MEDICARE, OTHER, SELFPAY ==
--- NOTE | 2022-02-14 09:00 | PET_ITS ---
PROCEDURE: WHOLE BODY PET/CT SCAN, MID SKULL TO MID THIGH REASON FOR EXAM: Right upper lobe pulmonary nodule on low-dose CT COMPARISON EXAMINATION: Low-dose CT 02/07/2022. TECHNIQUE: Following the intravenous administration of 11.5 mCi of F-18 the deoxyglucose, multiplanar imaging acquisitions of the neck, chest, abdomen/pelvis to the mid thigh, obtained at 1 hour post radiopharmaceutical administration. Interpretation is with co-registeration of similar anatomic distribution of CT. Findings: Normal and physiologic distribution of radioisotope identified in the expected intensity of the hepatic and splenic parenchyma, urinary tract and gastrointestinal structures. There is gross anatomic distribution of the intracranial contents. INDEX LESION SIZE SUV INTERPRETATION: 1. 7 x 10 mm nodule in the right upper lobe with minimal FDG activity (SUV 1.5). CT portion of the exam: Peribronchial groundglass opacity and reticulation of the lingula on image 104 with minimal activity, likely inflammatory, with overall decreased size since recent LDCT. Similar reticulonodular densities in the left lower lobe with minimal FDG activity, decreased in size since recent low-dose CT. Central lobular emphysema. There is no demonstrated pleural abnormality. Normal heart and pericardium. Normal mediastinum. Normal hilar regions. Normal unenhanced pulmonary arteries. There is atherosclerotic calcification of the aortic arch with tortuosity and elongation of the aortic arch and descending thoracic aorta. Normal liver. Normal gallbladder and extrahepatic biliary system. Normal spleen. Normal pancreas. Normal bilateral adrenal glands. Normal right kidney. Normal left kidney. Normal visualized stomach. Normal small intestine. Colonic fecal residue without colon wall thickening. The appendix is visualized and appears normal. There is diffuse atherosclerotic calcification of the abdominal aorta, without a demonstrated aneurysm. Normal inferior vena cava. Normal urinary bladder. No lytic or suspicious sclerotic bone lesion. Bone island of the left ilium. PET/PET/CT Tumor Base -Thigh Init IMPRESSION: 1. NEGATIVE EXAMINATION. Right upper lobe nodule does NOT meet criteria for viable neoplasm. Recommend follow-up CT to document morphologic stability. 2. Peribronchial groundglass opacity and nodules (decreased since recent LDCT ) in the lingula and left lower lobe with minimal inflammatory/postinflammatory FDG activity. 3. Chronic changes, as detailed above. Electronically Signed: Pancho Mosquera MD ([place]) at 10:16 EDT ,
== END | disposition home or self-care (01) ==
LOC: ONC 08:40
PROVIDERS: PCP Family Medicine; Referring Provider Nurse Practitioner Acute Care; Visit Provider Nurse Practitioner Acute Care
DX: R91.8 Other nonspecific abnormal finding of lung field (principal)
CPT/HCPCS: 78815; A9588

== ENCOUNTER → 2022-02-22 | Outpatient (CLI) | payer MEDICARE, OTHER, SELFPAY ==
--- NOTE | 2022-02-22 14:03 | PFTCOMP ---
COMPLETE PULMONARY FUNCTION TEST INTERPRETATION Brief HPI: Patient is a 66-year-old male, currently under the care of Dr. Mena, who presents to [facility] for complete pulmonary function tests secondary to diagnosis of COPD. Respiratory therapist reports good effort and reproducible results. Interpretation: Forced expiration spirometry shows a very severe large airways obstructive ventilatory defect with an FEV1 of 24% predicted. There is no significant bronchodilator response by strict ATS criteria. Spirograms are of good quality and plateau slowly, indicating slowly emptying areas of the lungs. The respiratory flow volume loop shows decreased expiratory flow rates at all lung volumes consistent with airway obstruction. Lung volumes by body plethysmography show a normal total lung capacity at 6.64 L, 101% predicted. FRC and RV are elevated out of proportion. Lung volume measurements are consistent with air-trapping. Diffusion capacity by carbon monoxide is decreased at 50% predicted. The airway resistance is elevated. No previous pulmonary function tests were available for review. Impression: Irreversible very severe large airways obstructive ventilatory defect, resulting in air trapping, and a symmetric reduction in diffusion capacity.
== END | disposition home or self-care (01) ==
PROVIDERS: PCP Family Medicine; Referring Provider Internal Medicine Critical Care Medicine; Visit Provider Internal Medicine Critical Care Medicine
DX: J44.9 Chronic obstructive pulmonary disease, unspecified (principal)
CPT/HCPCS: 94060; 94726; 94729

== ENCOUNTER → 2022-02-23 | Outpatient (CLI) | payer MEDICARE, OTHER, SELFPAY ==
[2022-02-23 12:33] VITALS: PULSE 72; PULSE 82; PULSE 84; PULSE 87; PULSE 89; PULSE 90; O2SAT 91; O2SAT 92; O2SAT 93; O2SAT 95; O2SAT 96
--- NOTE | 2022-02-23 15:09 | PCM.PSN.6M ---
PSN 6 Minute Walk Test 6 Minute Walk Test 6 Minute Walk Test: 6 Minute Walk Test PSN:6-Minute Walk Test Start: 02/23/22 12:33 Freq: Status: Active Protocol: [id number].[id number] Document 02/23/22 12:33 FRANTZ (Rec: 02/23/22 12:36 FRANTZ [id number]) 6 Minute Walk Test Date Performed 02/23/22 Time Performed 12:30 Height 5 ft 10 in Weight: 63.503 kg Weight in Pounds 140.[address]: Sincere Mena Assistive device used: None Pre-test Oxygen Delivery Method Room Air Pulse Ox (%) 96 Pulse Rate (60-100 beats/min) 84 Dyspnea Radha Scale (0-10) 0 Exertion Radha Scale (6-20) 6 1st minute Oxygen Delivery Method Room Air Pulse Ox (%) 93 Pulse Rate (60-100 beats/min) 72 2nd minute Oxygen Delivery Method Room Air Pulse Ox (%) 92 Pulse Rate (60-100 beats/min) 82 Number of Rests Taken 1 3rd minute Oxygen Delivery Method Room Air Pulse Ox (%) 91 Pulse Rate (60-100 beats/min) 90 4th minute Oxygen Delivery Method Room Air Pulse Ox (%) 91 Pulse Rate (60-100 beats/min) 89 Number of Rests Taken 1 5th minute Oxygen Delivery Method Room Air Pulse Ox (%) 93 Pulse Rate (60-100 beats/min) 87 6th minute Oxygen Delivery Method Room Air Pulse Ox (%) 91 Pulse Rate (60-100 beats/min) 89 Dyspnea Radha Scale (0-10) 3 Exertion Radha Scale (6-20) 15 Post-test Oxygen Delivery Method Room Air Pulse Ox (%) 95 Pulse Rate (60-100 beats/min) 82 Full Laps Walked 8 Partial Lap, Number of Tiles Walked 10 Total Distance Walked (ft) 482 Interpretation Interpretation: The patient was able to ambulate only 482 feet over the course of 6 minutes on room air with no assistive devices and 2 breaks. Patient had taken his break secondary to leg pain. Patient did have significant desaturation from a baseline of 96% to as low as 91%. These findings are consistent with a cardiovascular limitation exercise tolerance. Recommendations Recommendations: No supplemental oxygen is indicated at this time. However, patient will need to be followed closely given level of desaturation.
== END | disposition home or self-care (01) ==
LOC: PSN 12:07
PROVIDERS: PCP Family Medicine; Referring Provider Internal Medicine Critical Care Medicine; Visit Provider Internal Medicine Critical Care Medicine
DX: J44.9 Chronic obstructive pulmonary disease, unspecified (principal); M79.606 Pain in leg, unspecified
CPT/HCPCS: 94618

== ENCOUNTER 2022-04-24 18:58 | Emergency (ER) | payer MEDICARE, OTHER, SELFPAY ==
[2022-04-24 18:59] VITALS: BP 154/94; PULSE 100; RESP 20; TEMP 36.6; O2SAT 96; BMI 19.3
--- NOTE | 2022-04-24 19:15 | CT_ITS ---
STUDY: CT ABDOMEN AND PELVIS WITH CONTRAST REASON FOR EXAM: Male, 66 years old. abd pain RADIATION DOSAGE (If Supplied By Facility): CTDIvol = ( 9.65 ) mGy, DLP = ( 426.79 ) mGycm TECHNIQUE: Transaxial images were obtained from the dome of the diaphragm to the symphysis pubis without oral contrast. IV 100mL [id number]-300 was administered. Sagittal and coronal images were reconstructed. Individualized dose optimization techniques were used for this CT. COMPARISON: PET scan 02/14/2022 FINDINGS: The visualized lung bases are unremarkable. The visualized portions of the heart are within normal limits. Normal liver. Normal gallbladder and extrahepatic biliary system. Normal spleen. Normal pancreas. Normal bilateral adrenal glands. Normal right kidney. Normal left kidney. Normal visualized stomach. Multiple air-fluid levels noted in the small bowel. Increased stool noted in the colon. The appendix is visualized and appears normal. Calcific plaque along the aorta branches. Normal inferior vena cava. Normal retroperitoneum. Normal urinary bladder. Normal abdominal wall. Mild levoconvex scoliosis. Spondylosis and diffuse demineralization. Multilevel disc space narrowing. CT/Abdomen/Pelvis W IV Cont ONLY IMPRESSION: Ileus and increased stool. Electronically Signed: Carlos Ford MD at 21:29 EDT ,
--- NOTE | 2022-04-24 19:16 | EDS_ITS ---
HPI HPI - GI History of Present Illness Chief Complaint: Abd Pain Informant: patient Abdominal Pain/Flank Pain Onset: Today Context: Gradual Onset Quality: Aching Location: Diffuse Current Severity: Mild Maximum Severity: Moderate Worsened by: Nothing Relieved by: Nothing Nausea/Vomiting/Emesis GI Symptom: Positive for Nausea; Negative for Vomiting Onset: Today Severity: Mild Diarrhea/Melena/Hematochezia GI Symptom: Negative for Diarrhea, Melena or Hematochezia Associated Symptoms Associated Symptoms: Negative for Dysuria, Frequency, Hematuria or Urgency Narrative Narrative: 66-year-old male complaining of diffuse abdominal pain and intermittent today. Associated nausea but no vomiting. No diarrhea or fever. Said he had a bowel movement today. He has had recent difficulty urinating with a limited stream but he is able to urinate. Denies any fever or chills. No hematuria. He is never had any abdominal surgeries. He does have a history of COPD. Prior similar symptoms: No Recent Illness/Hospitalization: No PFSH PFSH Medical History Atherosclerotic heart disease of [place] coronary artery without angina pectoris COPD (chronic obstructive pulmonary disease) COPD (chronic obstructive pulmonary disease) History of non-ST elevation myocardial infarction (NSTEMI) (04/20/20) Nicotine dependence Tobacco abuse Home Medications albuterol sulfate 90 mcg/actuation aerosol inhaler 1 puff inhalation Q4H PRN PRN Sob &/Or Wheezing 04/20/20 [History Last Taken 01/09/22] cyclobenzaprine 10 mg tablet 10 mg PO TID PRN muscle spasm #90 tabs 07/18/21 [Rx Last Taken 01/08/22] atorvastatin 40 mg tablet 40 mg PO QHS cholesterol 01/09/22 [History Last Taken 01/08/22] budesonide-formoterol HFA 160 mcg-4.5 mcg/actuation aerosol inhaler (Symbicort) 2 puff inhalation BID Check with primary doctor 01/09/22 [History Last Taken Unknown] metoprolol tartrate 25 mg tablet 12.5 mg PO BID bp 01/09/22 [History Last Taken 01/09/22] rivaroxaban 2.5 mg tablet (Xarelto) 2.5 mg PO BID blood thinner 01/09/22 [History Last Taken 01/09/22] umeclidinium 62.5 mcg/actuation blister powder for inhalation 1 inh inhalation DAILY 02/01/22 [History Last Taken Unknown] Allergy/AdvReac Type Severity Reaction Status Date / Time No Known Allergies Allergy Verified 04/24/22 19:02 Family History Father Arthritis Mother Heart disease kidneys COPD (chronic obstructive pulmonary disease) TIA (transient ischemic attack) Diabetes Kidney disease Ovarian cancer Surgical History H/O cervical spine surgery History of left heart catheterization (04/20/20) Social History household members: other details: mother housing: house Smoking Status: Current some day smoker tobacco type: cigarettes Tobacco: How many years used: 50 alcohol intake: never substance use type: does not use what type of physical activity do you participate in: none do you feel safe at home: Yes ROS ROS ED ROS Narrative Abdominal pain. Limited nausea. Review of Systems ROS Unobtainable: Denies due to encephalopathy Constitutional Constitutional ED: Denies chills ENT ENT ED: Denies ear pain Cardiovascular Cardiovascular: Denies chest pain Respiratory/Chest Respiratory/Chest: Denies cough Gastrointestinal Gastrointestinal: Reports abdominal pain and nausea; Denies constipation, diarrhea, melena or vomiting Genitourinary Genitourinary ED: Denies dysuria or hematuria Musculoskeletal Musculoskeletal: Denies arthralgias Integumentary Denies abscess Neurologic Neurologic: Denies headache(s) Psychiatric Psychiatric: Denies anxiety Endocrine Endocrinology: Denies polydipsia Hematologic/Lymphatic Hematologic/Lymphatic: Denies easy bleeding Allergic/Immunologic Allergic/Immunologic ED: Denies mouth swelling EXAM Physical Exam Narrative Exam Narrative: C6-year-old male no acute distress. Vital signs stable afebrile. H EENT exam unremarkable. Lungs are clear. Heart regular rhythm rate about 100 no murmur. Abdomen soft diffusely tender. No rebound or guarding. No hernia or mass. No obstruction. No pulsatile mass. Moving all 4 extremities. Neurologically is awake and alert with no focal motor deficits. Back nontender. Const Vital Signs: 04/24/22 18:59 04/24/22 19:37 04/24/22 19:37 Temperature 97.8 F Temperature Source Temporal Pulse Rate 100 102 H Respiratory Rate 20 H 24 H 24 H Respiratory Effort Normal Short of Breath Respiratory Depth Shallow Respiratory Pattern Tachypnea Tachypnea Blood Pressure 154/94 H Blood Pressure Mean 114 Pulse Ox 96 98 Oxygen Delivery Method Room Air Room Air Positive well nourished and well developed; Negative for obese, cachectic, contractures or unkempt General Appearance ED: well developed; Negative for unkempt, cachectic, contractures or pallor Nutritional Appearance: Negative for cachectic or obese HEENT Reports moist mucous membranes normocephalic and atraumatic; Negative for trauma or tenderness Eyes PERRL and EOMs intact bilaterally General Eye ED: Negative for pale conjunctiva Neck no lymphadenopathy, supple and no JVD General: Negative for tenderness Carotids: Negative for other Resp normal respiratory effort and clear to auscultation bilaterally Effort and Inspection: Negative for respiratory distress or retractions Auscultation: Negative for rales, rhonchi or wheezes Cardio regular rate, regular rhythm, S1 normal heart sound, S2 normal heart sound and no murmurs GI non-distended and no masses; Negative for non-tender Inspection: Negative for abdominal distention Auscultation: normoactive bowel sounds Palpation: soft and tender; Negative for guarding, rigid, hepatomegaly, splenomegaly, hernia, mass or pulsatile mass Back/Spine no CVA tenderness General Back: Negative for CVA tenderness Cervical Spine: Negative for cervical spine tenderness Thoracic Spine / Upper Back: Negative for thoracic spinal tenderness Lumbar Spine / Lower Back: Negative for lumbar spinal tenderness Coccyx: Negative for other Extremity full ROM General Extremety ED: Negative for edema or tenderness General Extremity: Negative for edema Neuro moves all extremities and gait normal Sensorium / Orientation: alert, oriented to person, oriented to place and oriented to time; Negative for orientation impaired, confused, lethargic or stuporous Motor Exam: strength 5/5 throughout Psych mental status grossly normal and thought process normal Appearance: Negative for unkempt Attitude: No agitated Mood & Affect: Negative for depressed or anxious Skin no wounds General Skin Exam: Negative for jaundice or pallor Rashes: no rashes MDM MDM MDM Narrative Medical decision making narrative: Older male with diffuse abdominal pain. CAT scan labs pending. I will give Zofran for nausea. We did do a bladder scan per the nurse it was 393. Urinalysis negative. Repeat exam patient doing well at 10:05 PM. Abdomen benign. No vomiting. He is urinated here several times. He and I went over his test results. He is comfortable being discharged to home with magnesium citrate for constipation. Lab Data Attestation: I reviewed the patient's lab results. Lab results narrative: CBC White count of 7. H&H 15 and 43. Electrolytes show sodium 129. Gap of 6. Normal BUN and creatinine. Liver enzymes normal. Urinalysis negative. No signs of infection. No nitrites or white cells. Labs: Laboratory Results - last 24 hr 04/24/22 04/24/22 04/24/22 19:30 19:30 19:30 WBC 7.2 RBC 4.51 L Hgb 15.0 Hct 43.9 MCV 97.3 H MCH 33.3 H MCHC 34.2 RDW Std Deviation 44.1 H RDW Coeff of Mazin 12.3 Plt Count 322 MPV 9.7 Immature Gran % (Auto) 0.100 Neut % (Auto) 62.1 Lymph % (Auto) 24.1 [place] % (Auto) 10.0 Eos % (Auto) 2.6 Baso % (Auto) 1.1 H Absolute Neuts (auto) 4.4 Absolute Lymphs (auto) 1.73 Nucleated RBC % 0 Sodium 129 L Potassium 4.2 Chloride 95 L Carbon Dioxide 27.0 Anion Gap 6 BUN 5 L Creatinine 0.67 L Estim Creat Clear Calc 61.75 Est GFR (MDRD) Af Amer 152 Est GFR (MDRD) Non-Af 126 BUN/Creatinine Ratio 7.8 L Glucose 96 Calcium 9.1 Total Bilirubin 0.50 AST 17 ALT 27 Alkaline Phosphatase 79 Total Protein 7.3 Albumin 4.0 Globulin 3.4 Albumin/Globulin Ratio 1.1 Lipase 52 L Urine Color Yellow Urine Clarity Clear Urine pH 7.0 Ur Specific [place] 1.010 U Specif Grav (Refrac) 1.010 Urine Protein NEGATIVE Urine Glucose (UA) Normal Urine Ketones Negative Urine Occult Blood NEGATIVE Urine Nitrite NEGATIVE Urine Bilirubin Negative Urine Urobilinogen Normal Ur Leukocyte Esterase 25 H Urine RBC 0 SEEN Urine WBC 0 SEEN Ur Squamous Epith Cells 0 SEEN Urine Bacteria 1+ Urine Mucus 0 SEEN Radiography Diagnostic Testing: Clinical Impression(s) from Imaging Studies Abdomen/Pelvis CT 04/24/22 19:15 IMPRESSION: Ileus and increased stool. Electronically Signed: Carlos Ford MD at 21:29 EDT Reading Location ID and State: [facility] / [place] , Service support , Discharge Plan Triage Chief Complaint: Abd Pain ED Provider: William Sheehan Dx/Rx/DC Orders Clinical Impression: Constipation, Ileus, Acute hyponatremia, History of COPD Instructions: ED Constipation (Adult) Prescriptions: No Action cyclobenzaprine 10 mg tablet 10 mg PO TID PRN (Reason: muscle spasm) Qty: 90 4RF Incruse Ellipta 62.5 mcg/actuation blister with device 1 inh inhalation DAILY albuterol sulfate 90 mcg/actuation HFA aerosol inhaler 1 puff inhalation Q4H PRN PRN (Reason: Sob &/Or Wheezing) Label Comments: inhale 1 puff by mouth every 4 hours if needed for wheezing Xarelto 2.5 mg tablet 2.5 mg PO BID atorvastatin 40 mg tablet 40 mg PO QHS metoprolol tartrate 25 mg tablet 12.5 mg PO BID budesonide-formoterol [Symbicort] 160-4.5 mcg/actuation Hfa Aerosol Inhaler 2 puff INHALATION BID Primary Care Provider: Christoph Stout Referrals: Christoph Stout, [Primary Care Provider] - 3-5 Days if not improving Activity Restrictions/Additional Instructions: Either tonight or tomorrow morning drink a bottle of the magnesium citrate. Wait 4 hours if no bowel movement drink the second bottle. You may choose to do this in the morning because if you take it tonight you will be up going to the bathroom all night. Plenty of fluids. Make sure you are eating plenty of fruits, vegetables and fiber. Follow-up with your doctor if not improving or return emergency department if feeling worse such as increasing pain or intractable vomiting. Disposition Disposition: Home, Self Care
[2022-04-24] MEDS: Ondansetron 4 MG/2 ML Vial IV (19:27)
[2022-04-24 19:36] LABS: Mucous, Urine 0 SEEN /hpf (<or=2+); Red Blood Cells-Urine 0 SEEN /hpf (0-5); Squamous Epithelial Cells - UA 0 SEEN /hpf (0-5); White Blood Cells 0 SEEN /hpf (0-5)
[2022-04-24 19:37] VITALS: PULSE 102; RESP 24; O2SAT 98
[2022-04-24] MEDS: Ipratropium/Albuterol Sulfate 3 ML AMPUL.NEB INHALATION (19:37)
[2022-04-24 19:55] LABS: Color, Urine Yellow (Yellow); Urine Clarity Clear (Clear)
[2022-04-24 19:56] LABS: Glucose, Dipstick Normal (Normal); Ketone-Dipstick Negative (Negative); Protein-Dipstick NEGATIVE (Negative); Urine Bilirubin Dipstick Negative (Negative)
[2022-04-24 19:57] LABS: Leukocyte Esterase-Dipstick 25 /ul (Negative); Nitrite-Dipstick NEGATIVE (Negative); Occult Blood-Urine NEGATIVE /ul (Negative); Urine Urobilinogen Normal (Normal)
[2022-04-24 20:04] LABS: Bacteria 1+ /hpf (None Seen)
[2022-04-24 20:15] LABS: ALB/GLOB Ratio 1.1 RATIO (0.9-2.4); Alkaline Phosphatase 79 U/L (45-117); Anion Gap 6 (5-15); BUN 5 mg/dL (7-18); BUN/Creat Ratio 7.8 RATIO (10-20); Estimated Creatinine Clearance 61.75 ml/min; Globulin 3.4 g/dL (2.2-4.2); Glucose 96 mg/dL (74-106); Potassium 4.2 mmol/L (3.5-5.1); Protein, Total 7.3 g/dL (6.4-8.2)
[2022-04-24 20:22] LABS: Absolute Lymphocyte Count 1.73 X10^3/uL (0.83-4.51); Absolute Neutrophil Count 4.4 X10^3/uL (2.0-7.7); Basophil# 0.08 X10^3/uL; Basophil% 1.1 % (0-1); Eosinophil# 0.19 X10^3/uL; Eosinophils% 2.6 % (0-5); Hematocrit 43.9 % (40-54); Lymphocyte # 1.73 X10^3/ul (0.83-4.51); Lymphocyte % 24.1 % (19-41); Mean Corp Hgb Conc 34.2 g/dL (32-36); Mean Corpuscular Hgb 33.3 pg (27.0-32.0); Mean Corpuscular Volume 97.3 fL (80-94); Mean Platelet Vol. 9.7 fl (6.2-12.0); Monocyte# 0.72 X10^3/uL; NRBC Flagged by Analyzer 0 % (0-5); Neutrophil # 4.44 X10^3/uL (2.7-7.7); Neutrophil % 62.1 % (47-70); Platelet Count 322 K/mm3 (150-450); RBC Distribution Width CV 12.3 % (11.6-14.6); RBC Distribution Width SD 44.1 fl (35.1-43.9); Red Blood Count 4.51 M/mm3 (4.6-6.2); White Blood Count 7.2 K/mm3 (4.4-11.0)
[2022-04-24 20:49] LABS: AST(SGOT) 17 U/L (15-37); Alanine Aminotransfer ALT/SGPT 27 U/L (16-61); Calcium,Total 9.1 mg/dL (8.5-10.1); Chloride 95 mmol/L (98-107); Creatinine, Serum 0.67 mg/dL (0.70-1.30); EST Glomerular Filtration Rate 126 mL/min (>60); Est Glom Filt Rate - Afr Amer 152 mL/min (>60); Lipase 52 U/L (73-393); Sodium Level 129 mmol/L (136-145)
[2022-04-24 21:00] VITALS: BP 147/78; PULSE 91; RESP 24; O2SAT 96
[2022-04-24] MEDS: Magnesium Citrate 300 ML PO (22:48)
== END 2022-04-24 22:54 | disposition home or self-care (01) ==
PROVIDERS: Emergency Provider Emergency Medicine; PCP Family Medicine; Visit Provider Emergency Medicine
DX: K59.00 Constipation, unspecified (principal); J44.9 Chronic obstructive pulmonary disease, unspecified; K56.7 Ileus, unspecified; E87.1 Hypo-osmolality and hyponatremia; I25.10 Atherosclerotic heart disease of native coronary artery without angina pectoris; F17.210 Nicotine dependence, cigarettes, uncomplicated; I25.2 Old myocardial infarction; Z79.899 Other long term (current) drug therapy
CPT/HCPCS: 74177; 80053; 81001; 83690; 85025; 94640; 96374; 99251; 99284; Q9967; A4216; G0463; J2405

== ENCOUNTER 2022-05-17 15:09 | Emergency (ER) | payer MEDICARE, OTHER, SELFPAY ==
[2022-05-17 15:10] VITALS: BP 141/83; PULSE 89; RESP 24; TEMP 36.6; O2SAT 95; BMI 19.7
--- NOTE | 2022-05-17 15:24 | CT_ITS ---
INDICATION: headache EXAMINATION: CT BRAIN - CT Head or Brain W/O Contrast Injection TECHNIQUE: Multiple axial images were obtained of the head without intravenous contrast. A radiation dose optimization technique was used for this scan. IV Contrast dosage and agent: None. COMPARISON: None. FINDINGS: BRAIN PARENCHYMA: No intra- or extra-axial hemorrhage. No evidence of acute infarct. No intracranial mass or mass effect. There is preservation of the [place]/white matter interface. Low-lying cerebellar tonsils but no evidence of tonsillar herniation is seen. Posterior fossa structures are unremarkable. CSF SPACES: Appropriate for age. No hydrocephalus. Basal cisterns are patent. CALVARIUM, SKULL BASE, PARANASAL SINUSES AND MASTOID AIR CELLS: Clear. No discrete lytic or blastic abnormalities. ORBITS: Both globes, extraocular muscles, optic nerves and retrobulbar fat appear unremarkable. ASPECTS Score for Acute Strokes: 10 CT/Brain/Head without Contrast IMPRESSION: No evidence of acute intracranial pathology is seen. Electronically Signed: Torey Issa MD at 16:13 EDT ,
--- NOTE | 2022-05-17 15:25 | EKG12_ITS ---
Test Reason : chest pain Blood Pressure : / mmHG Vent. Rate : 087 BPM Atrial Rate : 087 BPM P-R Int : 174 ms QRS Dur : 090 ms QT Int : 360 ms P-R-T Axes : 085 083 082 degrees QTc Int : 433 ms Normal sinus rhythm Normal ECG Confirmed by EMERSON HERNANDEZ, DOMINIK ([id number]), editor index KIRA SOLIS ([id number]) on 05/21/2022 11:24:41 AM Referred By: Confirmed By:DOMINIK NORMAN MD
--- NOTE | 2022-05-17 15:26 | EDS_ITS ---
HPI <NATALIE Howe - Last Filed: 05/17/22 18:23> History of Present Illness Chief Complaint: Chest Pain Narrative Narrative: 66-year-old male with history of COPD, lung nodules, cardiac disease on Xarelto presents to the emergency department for multiple complaints. Patient states has been feeling weak over the last couple days, he had a burning-like sensation started in his legs that came up to his arms and now he has a headache. He denies any weakness to the upper or lower extremities. Patient also states to feel right-sided chest pain worse with inspiration. Patient also states to have more of a cough. He denies any fevers or chills. PFSH <NATALIE Howe - Last Filed: 05/17/22 18:23> FORMERLY [facility], [facility] Medical History Atherosclerotic heart disease of false pass coronary artery without angina pectoris COPD (chronic obstructive pulmonary disease) COPD (chronic obstructive pulmonary disease) History of non-ST elevation myocardial infarction (NSTEMI) (04/20/20) Nicotine dependence Tobacco abuse Home Medications albuterol sulfate 90 mcg/actuation aerosol inhaler 1 puff inhalation Q4H PRN PRN Sob &/Or Wheezing 04/20/20 [History Last Taken 01/09/22] cyclobenzaprine 10 mg tablet 10 mg PO TID PRN muscle spasm #90 tabs 07/18/21 [Rx Last Taken 01/08/22] atorvastatin 40 mg tablet 40 mg PO QHS cholesterol 01/09/22 [History Last Taken 01/08/22] budesonide-formoterol HFA 160 mcg-4.5 mcg/actuation aerosol inhaler (Symbicort) 2 puff inhalation BID Check with primary doctor 01/09/22 [History Last Taken Unknown] metoprolol tartrate 25 mg tablet 12.5 mg PO BID bp 01/09/22 [History Last Taken 01/09/22] rivaroxaban 2.5 mg tablet (Xarelto) 2.5 mg PO BID blood thinner 01/09/22 [History Last Taken 01/09/22] umeclidinium 62.5 mcg/actuation blister powder for inhalation 1 inh inhalation DAILY 02/01/22 [History Last Taken Unknown] Allergy/AdvReac Type Severity Reaction Status Date / Time No Known Allergies Allergy Verified 05/17/22 15:10 Family History Father Arthritis Mother Heart disease kidneys COPD (chronic obstructive pulmonary disease) TIA (transient ischemic attack) Diabetes Kidney disease Ovarian cancer Surgical History H/O cervical spine surgery History of left heart catheterization (04/20/20) Social History household members: other details: mother housing: house Smoking Status: Current some day smoker tobacco type: cigarettes Tobacco: How many years used: 50 alcohol intake: never substance use type: does not use what type of physical activity do you participate in: none do you feel safe at home: Yes ROS <NATALIE Howe - Last Filed: 05/17/22 18:23> ROS ED ROS Narrative Constitutional: Negative for fever, chills, weight loss, weakness Eyes: Negative for vision loss, vision change, double vision ENT: Negative for any sore throat, ear pain, congestion Cardiovascular: Negative for any tightness, palpitations. Positive for chest pain, left-sided chest tightness Respiratory: Negative for any, sputum production, hemoptysis, dyspnea, dyspnea on exertion, orthopnea. Positive for cough Gastrointestinal: Negative for any abdominal pain, nausea, vomiting, diarrhea, constipation, blood in stool, blood in vomit : Negative for any urinary frequency, dysuria, retention, blood in urine Muscle skeletal: Negative for any muscle joint pain, stiffness, neck pain, back pain. Positive for myalgias, burning sensation from the legs to his arms to a headache. Neurological: Negative for any syncope, numbness or tingling, dizziness. Positive for headache Skin: Negative for any rashes, lumps, itching, abrasions, lacerations Psychiatric: Negative for any depression, anxiety, stress, suicidal ideation, homicidal ideation Hematologic: Negative for any easy bruising, excessive bruising, easy bleeding Allergies: Negative for any eczema, hives, rash EXAM <NATALIE Howe - Last Filed: 05/17/22 18:23> Physical Exam Narrative Exam Narrative: Vital signs reviewed. HEET: Head normocephalic atraumatic, TMs clear bilaterally. Posterior pharynx is clear, moist mucous membranes. Nares clear bilaterally. Pupils equal round reactive to light. Neck: Supple with no lymphadenopathy or tenderness. No signs of meningismus, negative jolt sign. Cardiac: Regular rate and rhythm no murmurs gallops or rubs, equal peripheral pulses bilaterally. Respiratory: Lungs show diminished breath sounds bilaterally. No chest tenderness. Abdomen: Soft, nontender, nondistended. No abdominal bruit or pulsatile masses. No hepatosplenomegaly Extremities: No peripheral edema, no signs of gross trauma or deformity. Active full range of motion of all extremities. Neuro: Cranial nerves II through XII intact, no focal neurological deficits. NIH score 0. Skin: Clean dry and intact with no rash, purpura, petechiae, vesicles or pustules. Backs/flank: No CVA tenderness, no midline spinal tenderness, no deformity. Psych: Normal mood and affect. No SI, HI or acute psychosis. Const Vital Signs: 05/17/22 15:10 05/17/22 15:13 05/17/22 16:02 Temperature 97.9 F Temperature Source Oral Pulse Rate 89 85 Respiratory Rate 24 H 22 H Respiratory Effort Short of Breath Respiratory Pattern Tachypnea Blood Pressure 141/83 H 119/78 Blood Pressure Mean 102 91 Pulse Ox 95 95 Oxygen Delivery Method Room Air Nasal Cannula Oxygen Flow Rate (L/min) 2 05/17/22 17:18 Temperature Temperature Source Pulse Rate 92 Respiratory Rate 22 H Respiratory Effort Respiratory Pattern Blood Pressure 111/78 Blood Pressure Mean 89 Pulse Ox 98 Oxygen Delivery Method Nasal Cannula Oxygen Flow Rate (L/min) 2 Positive cachectic General Appearance ED: cachectic Nutritional Appearance: cachectic <Dr. Dennis Acevedo, DO - Last Filed: 05/17/22 18:17> Physical Exam Const Vital Signs: 05/17/22 15:10 05/17/22 15:13 05/17/22 16:02 Temperature 97.9 F Temperature Source Oral Pulse Rate 89 85 Respiratory Rate 24 H 22 H Respiratory Effort Short of Breath Respiratory Pattern Tachypnea Blood Pressure 141/83 H 119/78 Blood Pressure Mean 102 91 Pulse Ox 95 95 Oxygen Delivery Method Room Air Nasal Cannula Oxygen Flow Rate (L/min) 2 05/17/22 17:18 Temperature Temperature Source Pulse Rate 92 Respiratory Rate 22 H Respiratory Effort Respiratory Pattern Blood Pressure 111/78 Blood Pressure Mean 89 Pulse Ox 98 Oxygen Delivery Method Nasal Cannula Oxygen Flow Rate (L/min) 2 MDM <NATALIE Howe - Last Filed: 05/17/22 18:23> [facility] Lab Data Labs: Laboratory Results - last 24 hr 05/17/22 05/17/22 05/17/22 15:15 15:30 15:30 WBC 10.4 RBC 4.52 L Hgb 14.5 Hct 43.3 MCV 95.8 H MCH 32.1 H MCHC 33.5 RDW Std Deviation 43.5 RDW Coeff of Mazin 12.3 Plt Count 361 MPV 9.3 Immature Gran % (Auto) 0.400 Neut % (Auto) 76.4 H Lymph % (Auto) 13.6 L [place] % (Auto) 7.2 Eos % (Auto) 1.8 Baso % (Auto) 0.6 Absolute Neuts (auto) 7.9 H Absolute Lymphs (auto) 1.41 Nucleated RBC % 0 Sodium 128 L Potassium 4.2 Chloride 91 L Carbon Dioxide 30.0 Anion Gap 7 BUN 6 L Creatinine 0.66 L Estim Creat Clear Calc 63.17 Est GFR (MDRD) Af Amer 156 Est GFR (MDRD) Non-Af 129 BUN/Creatinine Ratio 9.2 L Glucose 93 Calcium 8.9 Total Bilirubin 0.50 AST 17 ALT 25 Alkaline Phosphatase 85 Troponin I High Sens 9 Total Protein 7.5 Albumin 3.8 Globulin 3.7 Albumin/Globulin Ratio 1.0 Lipase 59 L Urine Color Yellow Urine Clarity Sl. Cloudy Urine pH 7.0 Ur Specific Benedict 1.010 Urine Protein Negative Urine Glucose (UA) Normal Urine Ketones Negative Urine Occult Blood Negative Urine Nitrite Negative Urine Bilirubin Negative Urine Urobilinogen Normal Ur Leukocyte Esterase Negative 05/17/22 16:49 WBC RBC Hgb Hct MCV MCH MCHC RDW Std Deviation RDW Coeff of Mazin Plt Count MPV Immature Gran % (Auto) Neut % (Auto) Lymph % (Auto) [place] % (Auto) Eos % (Auto) Baso % (Auto) Absolute Neuts (auto) Absolute Lymphs (auto) Nucleated RBC % Sodium Potassium Chloride Carbon Dioxide Anion Gap BUN Creatinine Estim Creat Clear Calc Est GFR (MDRD) Af Amer Est GFR (MDRD) Non-Af BUN/Creatinine Ratio Glucose Calcium Total Bilirubin AST ALT Alkaline Phosphatase Troponin I High Sens 8 Total Protein Albumin Globulin Albumin/Globulin Ratio Lipase Urine Color Urine Clarity Urine pH Ur Specific Benedict Urine Protein Urine Glucose (UA) Urine Ketones Urine Occult Blood Urine Nitrite Urine Bilirubin Urine Urobilinogen Ur Leukocyte Esterase Radiography Diagnostic Testing: Clinical Impression(s) from Imaging Studies Brain CT 05/17/22 15:24 IMPRESSION: No evidence of acute intracranial pathology is seen. Electronically Signed: Torey Issa MD at 16:13 EDT Reading Location ID and State: [facility] / [place] Tel , Service support , Chest X-Ray 05/17/22 15:59 IMPRESSION: No radiographic evidence of acute cardiopulmonary disease. Electronically Signed: Torey Issa MD at 16:14 EDT Reading Location ID and State: [facility] / [place] Tel , Service support , EKG Normal sinus rhythm: Comments: Normal sinus rhythm, rate 87 bpm, ID 174 ms, QRS duration 90 ms, no acute ST elevation, no acute infarct. Treatment and Re-Evaluation Narrative: Patient appears well, patient appears nontoxic, vital signs are stable. Patient presents to the emergency department with burning to his legs, arms, then a headache. During this entire time he also had chest pain. Patient did receive a full cardiac work-up as well as a neurological work-up. Patient's CBC was unremarkable, patient's chemistries showed a hyponatremia of 128 however the patient has been baseline here for the last 3 to 4 months. Patient did receive 2 high-sensitivity troponins, the first 1 being 9, second being 8, these are both negative. Patient did receive a portable chest x-ray which was interpreted by the ER physician. This showed no radiographic evidence of acute cardiopulmonary disease. Patient did receive IV fluids. Patient's CT the brain showed no evidence of acute intracranial pathology. At this time, there is no signs or symptoms of CAD, [place], pneumonia, stroke. Patient on reassessment was asymptomatic and feels much better like to be discharged. Patient will follow up closely with his PCP. <Dr. Dennis Acevedo, DO - Last Filed: 05/17/22 18:17> MDM MDM Narrative Medical decision making narrative: I have personally performed a face to face assessment of the patient and have reviewed the LIANET Note. I performed a substantive portion of the visit including all aspects of the following. My montez findings include: History is [she presents to the emergency department with multiple complaints. He presents from home via EMS. Patient states that he was sitting when he developed a burning odd sensation in both legs that then went into his arms and and into his head. The same time he does develop some right-sided chest discomfort. Patient has a dull ache currently in his chest right chest that is worse with taking a deep breath in and he will get a sharp pain with that. He denies any falls or head injuries. Patient is on Xarelto. Patient has history of COPD and coronary artery disease. Patient tells me the discomfort in the arms and the legs has since resolved. He has just minimal headache left over currently. He still has some mild discomfort in his right chest. Patient believes he was having a heart issue. Patient denies recent illness. Patient has a slight chronic cough due to his COPD. Patient also describes some blurry vision and also almost a vertiginous feeling when he closes his eyes. ] Exam is [HEENT-PERRLA, EOMI. Cranial nerves II through XII grossly intact. TMs clear. Mucous membranes moist. No adenopathy. Cardiovascular-regular rate and rhythm without murmur or ectopy Lungs-clear to auscultation, chest wall stable without crepitus or subcu emphysema Abdomen-normoactive bowel sounds, soft, nontender, no rebound or rigidity, no peritoneal signs. Neuro [id number] and heel barlow testing within normal limits, negative Romberg, negative for drift, fundi benign Extremities-intact ?4, normal range of motion, normal pulses, atraumatic] Medical Decison Making [lab work-up was unremarkable. He had a delta troponin that also was normal. This point etiology of his symptoms unclear. His symptoms have completely resolved and he states that he feels great. Patient like to go home. Patient to follow-up with his primary care physician 3 to 5 days.] Other additions or changes: [None] Lab Data Labs: Laboratory Results - last 24 hr 05/17/22 05/17/22 05/17/22 15:15 15:30 15:30 WBC 10.4 RBC 4.52 L Hgb 14.5 Hct 43.3 MCV 95.8 H MCH 32.1 H MCHC 33.5 RDW Std Deviation 43.5 RDW Coeff of Mazin 12.3 Plt Count 361 MPV 9.3 Immature Gran % (Auto) 0.400 Neut % (Auto) 76.4 H Lymph % (Auto) 13.6 L [place] % (Auto) 7.2 Eos % (Auto) 1.8 Baso % (Auto) 0.6 Absolute Neuts (auto) 7.9 H Absolute Lymphs (auto) 1.41 Nucleated RBC % 0 Sodium 128 L Potassium 4.2 Chloride 91 L Carbon Dioxide 30.0 Anion Gap 7 BUN 6 L Creatinine 0.66 L Estim Creat Clear Calc 63.17 Est GFR (MDRD) Af Amer 156 Est GFR (MDRD) Non-Af 129 BUN/Creatinine Ratio 9.2 L Glucose 93 Calcium 8.9 Total Bilirubin 0.50 AST 17 ALT 25 Alkaline Phosphatase 85 Troponin I High Sens 9 Total Protein 7.5 Albumin 3.8 Globulin 3.7 Albumin/Globulin Ratio 1.0 Lipase 59 L Urine Color Yellow Urine Clarity Sl. Cloudy Urine pH 7.0 Ur Specific Benedict 1.010 Urine Protein Negative Urine Glucose (UA) Normal Urine Ketones Negative Urine Occult Blood Negative Urine Nitrite Negative Urine Bilirubin Negative Urine Urobilinogen Normal Ur Leukocyte Esterase Negative 05/17/22 16:49 WBC RBC Hgb Hct MCV MCH MCHC RDW Std Deviation RDW Coeff of Mazin Plt Count MPV Immature Gran % (Auto) Neut % (Auto) Lymph % (Auto) [place] % (Auto) Eos % (Auto) Baso % (Auto) Absolute Neuts (auto) Absolute Lymphs (auto) Nucleated RBC % Sodium Potassium Chloride Carbon Dioxide Anion Gap BUN Creatinine Estim Creat Clear Calc Est GFR (MDRD) Af Amer Est GFR (MDRD) Non-Af BUN/Creatinine Ratio Glucose Calcium Total Bilirubin AST ALT Alkaline Phosphatase Troponin I High Sens 8 Total Protein Albumin Globulin Albumin/Globulin Ratio Lipase Urine Color Urine Clarity Urine pH Ur Specific Benedict Urine Protein Urine Glucose (UA) Urine Ketones Urine Occult Blood Urine Nitrite Urine Bilirubin Urine Urobilinogen Ur Leukocyte Esterase Radiography Diagnostic Testing: Clinical Impression(s) from Imaging Studies Brain CT 05/17/22 15:24 IMPRESSION: No evidence of acute intracranial pathology is seen. Electronically Signed: Torey Issa MD at 16:13 EDT , Chest X-Ray 05/17/22 15:59 IMPRESSION: No radiographic evidence of acute cardiopulmonary disease. Electronically Signed: Torey Issa MD at 16:14 EDT , Discharge Plan Triage Chief Complaint: Chest Pain Other Complaint: Shortness of Breath ED Midlevel Provider: Aristeo Abrams ED Provider: Dennis Acevedo Dx/Rx/DC Orders Clinical Impression: Chest pain, Paresthesia, Headache Instructions: ED Chest Pain, Uncertain Cause, ED Pain, Acute, Uncertain Cause, ED Paraesthesias Prescriptions: No Action cyclobenzaprine 10 mg tablet 10 mg PO TID PRN (Reason: muscle spasm) Qty: 90 4RF Incruse Ellipta 62.5 mcg/actuation blister with device 1 inh inhalation DAILY albuterol sulfate 90 mcg/actuation HFA aerosol inhaler 1 puff inhalation Q4H PRN PRN (Reason: Sob &/Or Wheezing) Label Comments: inhale 1 puff by mouth every 4 hours if needed for wheezing Xarelto 2.5 mg tablet 2.5 mg PO BID atorvastatin 40 mg tablet 40 mg PO QHS metoprolol tartrate 25 mg tablet 12.5 mg PO BID budesonide-formoterol [Symbicort] 160-4.5 mcg/actuation Hfa Aerosol Inhaler 2 puff INHALATION BID Primary Care Provider: Christoph Stout Referrals: Christoph Stout DO [Primary Care Provider] - Activity Restrictions/Additional Instructions: Please follow-up outpatient. Disposition Disposition: Home, Self Care
[2022-05-17 15:39] LABS: Absolute Lymphocyte Count 1.41 X10^3/uL (0.83-4.51); Absolute Neutrophil Count 7.9 X10^3/uL (2.0-7.7); Basophil# 0.06 X10^3/uL; Basophil% 0.6 % (0-1); Eosinophil# 0.19 X10^3/uL; Eosinophils% 1.8 % (0-5); Hematocrit 43.3 % (40-54); Hemoglobin 14.5 g/dL (13.0-16.5); Lymphocyte # 1.41 X10^3/ul (0.83-4.51); Lymphocyte % 13.6 % (19-41); Mean Corp Hgb Conc 33.5 g/dL (32-36); Mean Corpuscular Hgb 32.1 pg (27.0-32.0); Mean Corpuscular Volume 95.8 fL (80-94); Mean Platelet Vol. 9.3 fl (6.2-12.0); Monocyte# 0.75 X10^3/uL; Monocyte% 7.2 % (0-10); NRBC Flagged by Analyzer 0 % (0-5); Neutrophil % 76.4 % (47-70); Platelet Count 361 K/mm3 (150-450); RBC Distribution Width CV 12.3 % (11.6-14.6); RBC Distribution Width SD 43.5 fl (35.1-43.9); Red Blood Count 4.52 M/mm3 (4.6-6.2); White Blood Count 10.4 K/mm3 (4.4-11.0)
[2022-05-17 15:56] LABS: Color, Urine Yellow (Yellow); Glucose, Dipstick Normal (Normal); Ketone-Dipstick Negative (Negative); Leukocyte Esterase-Dipstick Negative /ul (Negative); Nitrite-Dipstick Negative (Negative); Occult Blood-Urine Negative /ul (Negative); Protein-Dipstick Negative (Negative); Urine Bilirubin Dipstick Negative (Negative); Urine Clarity Sl. Cloudy (Clear); Urine Urobilinogen Normal (Normal)
[2022-05-17 15:58] LABS: AST(SGOT) 17 U/L (15-37); Alanine Aminotransfer ALT/SGPT 25 U/L (16-61); Albumin, Serum 3.8 g/dL (3.2-5.0); Alkaline Phosphatase 85 U/L (45-117); Anion Gap 7 (5-15); BUN 6 mg/dL (7-18); BUN/Creat Ratio 9.2 RATIO (10-20); Calcium,Total 8.9 mg/dL (8.5-10.1); Chloride 91 mmol/L (98-107); Creatinine, Serum 0.66 mg/dL (0.70-1.30); EST Glomerular Filtration Rate 129 mL/min (>60); Est Glom Filt Rate - Afr Amer 156 mL/min (>60); Estimated Creatinine Clearance 63.17 ml/min; Globulin 3.7 g/dL (2.2-4.2); Glucose 93 mg/dL (74-106); Lipase 59 U/L (73-393); Potassium 4.2 mmol/L (3.5-5.1); Protein, Total 7.5 g/dL (6.4-8.2); Sodium Level 128 mmol/L (136-145); Troponin-I HS 9 pg/mL (3.0-78.0)
--- NOTE | 2022-05-17 15:59 | RAD_ITS ---
INDICATION: cough EXAMINATION/TECHNIQUE: X-RAY - XR Chest 1 View COMPARISON: 01/09/2022. FINDINGS: LINES/DEVICES: None. LUNGS: No consolidation, edema or effusion. No pneumothorax. MEDIASTINUM AND CARDIOVASCULAR STRUCTURES: Cardiac silhouette not enlarged. Central airways and mediastinal contour are unremarkable. BONES AND SOFT TISSUES: Unremarkable. RAD/Chest 1 View (Portable) IMPRESSION: No radiographic evidence of acute cardiopulmonary disease. Electronically Signed: Torey Issa MD at 16:14 EDT ,
[2022-05-17 16:02] VITALS: BP 119/78; PULSE 85; RESP 22; O2SAT 95
[2022-05-17 17:18] VITALS: BP 111/78; PULSE 92; RESP 22; O2SAT 98
[2022-05-17 18:06] LABS: Troponin-I HS 8 pg/mL (3.0-78.0)
[2022-05-17 18:33] VITALS: BP 121/79; PULSE 92; RESP 17; O2SAT 97
== END 2022-05-17 18:47 | disposition home or self-care (01) ==
PROVIDERS: Nurse Practitioner; Emergency Provider Emergency Medicine; PCP Family Medicine; Visit Provider Emergency Medicine
DX: R07.9 Chest pain, unspecified (principal); J44.9 Chronic obstructive pulmonary disease, unspecified; R51.9 Headache, unspecified; I25.10 Atherosclerotic heart disease of native coronary artery without angina pectoris; R20.2 Paresthesia of skin; F17.210 Nicotine dependence, cigarettes, uncomplicated; R20.8 Other disturbances of skin sensation; Z79.899 Other long term (current) drug therapy
CPT/HCPCS: 70450; 71045; 80053; 81002; 83690; 84484; 85025; 87428; 93005; 99285